=== PATIENT | male | born 1975 | race American Indian/Alaskan Native ===

== ENCOUNTER 2017-06-10 15:16 | Emergency (ER) | payer MEDICAID, OTHER ==
[2017-06-10 15:52] VITALS: BP 137/92
[2017-06-10] MEDS ORDERED: Lidocaine 2% Viscous Solution 15 ML Cup PO ONE (16:04)
--- NOTE | 2017-06-10 16:13 | EDM.PDOC ---
ED HPI GENERAL MEDICAL PROBLEM - General Chief Complaint: General Stated Complaint: TOOTH PAIN, [id number] Time Seen by Provider: 06/10/17 16:09 Source of Information: Reports: Patient History Limitations: Reports: No Limitations - History of Present Illness INITIAL COMMENTS - FREE TEXT/NARRATIVE: This 41 yo male patient reports to the ED with a 1 week history of increased pain in his right lower molar. The patient reports he was eating hard candy and noticed that his tooth had chipped off. The patient reports he attempted to get into the [facility], but was not able to get an appointment The patient reports he has had a root canal in that tooth previously. 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 Left Tooth/Teeth Pain Score (Numeric/FACES): 10 - Related Data Allergies Allergy/AdvReac Type Severity Reaction Status Date / Time No Known Allergies Allergy Verified 06/10/17 15:52 Home Meds: Home Meds Aspirin [Ecotrin] 81 mg PO DAILY 10/24/15 [History] Ibuprofen [Motrin] 800 mg PO Q8HR 10/24/15 [History] Lisinopril 20 mg PO DAILY 10/24/15 [History] Simvastatin [Zocor] 20 mg PO BEDTIME 10/24/15 [History] metFORMIN HCl [Metformin HCl] 500 mg PO BID 10/24/15 [History] Past Medical History Cardiovascular History: Reports: High Cholesterol, Hypertension Musculoskeletal History: Reports: Other (See Below) Other Musculoskeletal History: hx lt thumb fx Endocrine/Metabolic History: Reports: Diabetes, Type II - Past Surgical History GI Surgical History: Reports: Hernia Repair/Other Social & Family History - Family History Family Medical History: Noncontributory - Tobacco Use Smoking Status *Q: Current Every Day Smoker Years of Tobacco use: 15 Packs/Tins Daily: 1 - Caffeine Use Caffeine Use: Reports: None - Recreational Drug Use Recreational Drug Use: No ED ROS GENERAL - Review of Systems Review Of Systems: ROS reveals no pertinent complaints other than HPI. ED EXAM, GENERAL - Physical Exam Exam: See Below Exam Limited By: No Limitations General Appearance: Alert, WD/WN, Moderate Distress Eye Exam: Bilateral Eye: Foreign Body, Normal Inspection, PERRL Ears: Normal External Exam, Normal Canal, Hearing Grossly Normal, Normal TMs Nose: Normal Inspection, Normal Mucosa, No Blood Throat/Mouth: Other (The patient has a broken left lower molar. There is inflammation around the area and the patient reports increased pain going into his jaw. ) Head: Atraumatic, Normocephalic Neck: Normal Inspection, Supple, Non-Tender, Full Range of Motion Respiratory/Chest: No Respiratory Distress, Lungs Clear, Normal Breath Sounds, No Accessory Muscle Use, Chest Non-Tender Cardiovascular: Normal Peripheral Pulses, Regular Rate, Rhythm, No Edema, No Gallop, No JVD, No Murmur, No Rub GI/Abdominal: Normal Bowel Sounds, Soft, Non-Tender, No Organomegaly, No Distention, No Abnormal Bruit, No Mass (Male) Exam: Deferred Rectal (Males) Exam: Deferred Extremities: Normal Inspection, Normal Range of Motion, Non-Tender, Normal Capillary Refill, No Pedal Edema Neurological: Alert, Oriented, CN II-XII Intact, Normal Cognition, Normal Gait, Normal Reflexes, No Motor/Sensory Deficits Psychiatric: Normal Affect, Normal Mood Skin Exam: Warm, Dry, Intact, Normal Color, No Rash Lymphatic: No Adenopathy Course - Vital Signs Last Recorded V/S: Last Vital Signs Temp 36.9 C 06/10/17 15:49 Pulse 102 H 06/10/17 15:49 Resp 18 06/10/17 15:49 BP 137/92 H 06/10/17 15:49 Pulse Ox 100 06/10/17 15:49 - Orders/Labs/Meds Meds: Medications Discontinued Medications Generic Name Dose Route Start Last Admin Trade Name Freq PRN Reason Stop Dose Admin Lidocaine HCl 15 ml 06/10/17 16:04 06/10/17 16:13 Xylocaine 2% Viscous PO 06/10/17 16:05 15 ml ONETIME ONE Administration Departure - Departure Time of Disposition: 16:09 Disposition: Home, Self-Care 01 Condition: Fair Clinical Impression: Dental caries extending into dentin Dental trauma Qualifiers: Encounter type: initial encounter Qualified Code(s): S09.93XA - Unspecified injury of face, initial encounter - Discharge Information Instructions: Dental Caries, [id number] Forms: ED Department Discharge Care Plan Goals: The patient was advised of the examination results during the visit. The patient was given some Viscous Lidocaine 2% today while in the ED. The patient was discharged with a script for Clindamycin (300 mg) #30 to take 1 by mouth 3 times per day for 10 day sand Viscous Lidocaine 2% #100 mL to apply 10 mL to a cottonball over the area every 6 hours as needed. The patient may continue to take Tylenol and ibuprofen as directed. The patient should follow-up with a dentist as soon as possible for continued evaluation and further management.
== END 2017-06-10 16:15 | disposition home or self-care (01) ==
LOC: DL.ED 15:16
DX: S02.5XXA Fracture of tooth (traumatic), initial encounter for closed fracture (principal); K02.9 Dental caries, unspecified; E78.00 Pure hypercholesterolemia, unspecified; I10 Essential (primary) hypertension; E11.9 Type 2 diabetes mellitus without complications; F17.210 Nicotine dependence, cigarettes, uncomplicated; Z79.82 Long term (current) use of aspirin; Z79.899 Other long term (current) drug therapy; X58.XXXA Exposure to other specified factors, initial encounter
CPT/HCPCS: 99282; A9270

== ENCOUNTER 2019-02-15 12:52 | Emergency (ER) | payer MEDICAID ==
[2019-02-15 12:59] VITALS: BP 155/101
[2019-02-15] MEDS ORDERED: Sodium Chloride 0.9% 10 ML Syringe FLUSH PRN (13:08)
[2019-02-15] MEDS ORDERED: HYDROmorphone 1 MG/ML Syringe IVPUSH ONE (13:09)
[2019-02-15] MEDS ORDERED: Sodium Chloride 0.9% 1,000 ML IV ONE (13:09)
[2019-02-15] MEDS ORDERED: Ondansetron 4 MG/2 ML SDV IV ONE (13:09)
--- NOTE | 2019-02-15 13:20 | EDM.PDOC ---
ED HPI GENERAL MEDICAL PROBLEM - General Chief Complaint: Abdominal Pain Stated Complaint: POSSIBLE APPY Time Seen by Provider: 02/15/19 13:00 Source of Information: Reports: Patient History Limitations: Reports: No Limitations - History of Present Illness INITIAL COMMENTS - FREE TEXT/NARRATIVE: Patient presents to ER today after previously being seen at [facility] where they were unable to run labs. Patient CC is right sided abdominal pain that he describes at "shooting" with radiation to right groin region. Patient states that he has been experiencing similar abdominal pain in the past 2 weeks that started out with right flank pain, however he did fall on his right side today causing the pain to worsen. Patient reports that he fell against the stair rail while holding his son. Patient denies any nausea, vomiting, blood in his urine or feces, shortness of breath, or chest pain. Patient reports PMH of kidney stones as well as "abdominal hernia". Patient has not tried anything to relieve the pain since the falling episode today. 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 (see below) (None) Right Lower Abdomen Pain Score (Numeric/FACES): 8 - Related Data Allergies Allergy/AdvReac Type Severity Reaction Status Date / Time No Known Allergies Allergy Verified 06/10/17 15:52 Home Meds: Home Meds Aspirin [Ecotrin] 81 mg PO DAILY 10/24/15 [History] Ibuprofen [Motrin] 800 mg PO Q8HR 10/24/15 [History] Lisinopril 20 mg PO DAILY 10/24/15 [History] Simvastatin [Zocor] 20 mg PO BEDTIME 10/24/15 [History] metFORMIN HCl [Metformin HCl] 500 mg PO BID 10/24/15 [History] Past Medical History Cardiovascular History: Reports: High Cholesterol, Hypertension Musculoskeletal History: Reports: Other (See Below) Other Musculoskeletal History: hx lt thumb fx Endocrine/Metabolic History: Reports: Diabetes, Type II - Past Surgical History GI Surgical History: Reports: Hernia Repair/Other Social & Family History - Family History Family Medical History: Noncontributory - Tobacco Use Smoking Status *Q: Never Smoker - Caffeine Use Caffeine Use: Reports: None - Recreational Drug Use Recreational Drug Use: No ED ROS GENERAL - Review of Systems Review Of Systems: ROS reveals no pertinent complaints other than HPI. ED EXAM, GI/ABD - Physical Exam Exam: See Below Exam Limited By: No Limitations General Appearance: Alert, No Apparent Distress Respiratory/Chest: No Respiratory Distress, Lungs Clear, Normal Breath Sounds, No Accessory Muscle Use, Chest Non-Tender Cardiovascular: Normal Peripheral Pulses, Regular Rate, Rhythm, No Edema, Other GI/Abdominal Exam: Normal Bowel Sounds, Soft, Tender (RLQ tenderness with palpation ), Other (No evidence of trauma to RUQ/RLQ ) Extremities: Normal Inspection, Normal Range of Motion Neurological: Alert, Oriented Psychiatric: Normal Affect, Normal Mood Skin Exam: Warm, Dry, Intact Course - Vital Signs Last Recorded V/S: Last Vital Signs Temp 36.9 C 02/15/19 12:58 Pulse 94 02/15/19 12:58 Resp 18 02/15/19 12:58 BP 155/101 H 02/15/19 12:58 Pulse Ox 100 02/15/19 12:58 - Orders/Labs/Meds Orders: Active Orders 24 hr Category Date Time Status Peripheral IV Care [RC] . DIRECTED Care 02/15/19 13:09 Active Abdomen Pelvis wo Cont [CT] Stat Exams 02/15/19 13:25 Taken Sodium Chloride 0.9% [Saline Flush] Med 02/15/19 13:08 Active 10 ml FLUSH ASDIRECTED PRN Peripheral IV Insertion Adult [OM.PC] Stat Oth 02/15/19 13:08 Ordered Medication Orders Sodium Chloride (Saline Flush) 10 ml FLUSH ASDIRECTED PRN PRN Reason: Keep Vein Open Last Admin: 02/15/19 13:27 Dose: 10 ml Labs: Laboratory Tests 02/15/19 02/15/19 02/15/19 Range/Units 13:07 13:22 13:22 WBC 5.6 (5.0-10.0) 10^3/uL RBC 4.56 L (4.6-6.2) 10^6/uL Hgb 13.2 L (14.0-18.0) g/dL Hct 38.4 L (40.0-54.0) % MCV 84.2 (80-100) fL MCH 28.9 (27.0-34.0) pg MCHC 34.4 (33.0-35.0) g/dL Plt Count 288 (150-450) 10^3/uL Neut % (Auto) 54.0 (42.2-75.2) % Lymph % (Auto) 33.8 (20.5-50.1) % [place] % (Auto) 9.2 H (2-8) % Eos % (Auto) 2.3 (1.0-3.0) % Baso % (Auto) 0.7 (0.0-1.0) % Sodium 133 L (135-145) mmol/L Potassium 3.0 L (3.6-5.0) mmol/L Chloride 100 L (101-111) mmol/L Carbon Dioxide 23.0 (21.0-31.0) mmol/L Anion Gap 13.0 BUN 7 (7-18) mg/dL Creatinine 0.5 L (0.6-1.3) mg/dL Est Cr Clr Drug Dosing 188.95 mL/min Estimated GFR (MDRD) > 60 BUN/Creatinine Ratio 14.00 Glucose 145 H (74-105) mg/dL Lactic Acid (0.5-2.2) mmol/L Calcium 8.6 (8.4-10.2) mg/dl Total Bilirubin 0.6 (0.2-1.0) mg/dL AST 15 (10-42) IU/L ALT 11 (10-60) IU/L Alkaline Phosphatase 47 (42-121) IU/L Total Protein 6.8 (6.7-8.2) g/dl Albumin 4.0 (3.2-5.5) g/dl Globulin 2.8 Albumin/Globulin Ratio 1.43 Amylase 24 L (28-100) U/L Lipase 33 (22-51) U/L Urine Color Yellow (YELLOW) Urine Appearance Clear (CLEAR) Urine pH 7.0 (5.0-9.0) Ur Specific [place] 1.010 (1.005-1.030) Urine Protein Negative (NEGATIVE) Urine Glucose (UA) Negative (NEGATIVE) Urine Ketones Negative (NEGATIVE) Urine Occult Blood Negative (NEGATIVE) Urine Nitrite Negative (NEGATIVE) Urine Bilirubin Negative (NEGATIVE) Urine Urobilinogen 0.2 (0.2-1.0) mg/dL Ur Leukocyte Esterase Negative (NEGATIVE) 02/15/19 Range/Units 13:22 WBC (5.0-10.0) 10^3/uL RBC (4.6-6.2) 10^6/uL Hgb (14.0-18.0) g/dL Hct (40.0-54.0) % MCV (80-100) fL MCH (27.0-34.0) pg MCHC (33.0-35.0) g/dL Plt Count (150-450) 10^3/uL Neut % (Auto) (42.2-75.2) % Lymph % (Auto) (20.5-50.1) % [place] % (Auto) (2-8) % Eos % (Auto) (1.0-3.0) % Baso % (Auto) (0.0-1.0) % Sodium (135-145) mmol/L Potassium (3.6-5.0) mmol/L Chloride (101-111) mmol/L Carbon Dioxide (21.0-31.0) mmol/L Anion Gap BUN (7-18) mg/dL Creatinine (0.6-1.3) mg/dL Est Cr Clr Drug Dosing mL/min Estimated GFR (MDRD) BUN/Creatinine Ratio Glucose (74-105) mg/dL Lactic Acid 0.7 (0.5-2.2) mmol/L Calcium (8.4-10.2) mg/dl Total Bilirubin (0.2-1.0) mg/dL AST (10-42) IU/L ALT (10-60) IU/L Alkaline Phosphatase (42-121) IU/L Total Protein (6.7-8.2) g/dl Albumin (3.2-5.5) g/dl Globulin Albumin/Globulin Ratio Amylase (28-100) U/L Lipase (22-51) U/L Urine Color (YELLOW) Urine Appearance (CLEAR) Urine pH (5.0-9.0) Ur Specific [place] (1.005-1.030) Urine Protein (NEGATIVE) Urine Glucose (UA) (NEGATIVE) Urine Ketones (NEGATIVE) Urine Occult Blood (NEGATIVE) Urine Nitrite (NEGATIVE) Urine Bilirubin (NEGATIVE) Urine Urobilinogen (0.2-1.0) mg/dL Ur Leukocyte Esterase (NEGATIVE) Meds: Medications Generic Name Dose Route Start Last Admin Trade Name Freq PRN Reason Stop Dose Admin Sodium Chloride 10 ml 02/15/19 13:08 02/15/19 13:27 Saline Flush FLUSH 10 ml ASDIRECTED PRN Administration Keep Vein Open Discontinued Medications Generic Name Dose Route Start Last Admin Trade Name [place] PRN Reason Stop Dose Admin Hydromorphone HCl 1 mg 02/15/19 13:09 02/15/19 13:27 Dilaudid IVPUSH 02/15/19 13:10 1 mg ONETIME ONE Administration Sodium Chloride 1,000 mls @ 999 mls/hr 02/15/19 13:09 02/15/19 13:27 Normal Saline IV 02/15/19 14:09 999 mls/hr .BOLUS ONE Administration Ondansetron HCl 4 mg 02/15/19 13:09 02/15/19 13:27 Zofran IV 02/15/19 13:10 4 mg ONETIME ONE Administration - Radiology Interpretation Free Text/Narrative:: Multiple non obstructing kidney stones in bilateral kidneys. Suspected tiny calculus in right distal ureter or just into the bladder. No obstructing calculi. Appendix appears normals. No other acute findings, see rad report. Departure - Departure Time of Disposition: 14:41 Disposition: Home, Self-Care 01 Condition: Good Clinical Impression: Multiple kidney stones - Discharge Information *PRESCRIPTION DRUG MONITORING PROGRAM REVIEWED*: No *COPY OF PRESCRIPTION DRUG MONITORING REPORT IN PATIENT PREM: No Instructions: Kidney Stones, [id number] Forms: ED Department Discharge Additional Instructions: Rx: Zofran 4mg Rx: [place] 5/325 mg *This medication may cause drowsiness, do not drive while under the influence of this medication Push fluids, stay hydrated. Follow up in clinic in next 3-5 days if no improvement. - My Orders Last 24 Hours: My Active Orders 02/15/19 13:08 Sodium Chloride 0.9% [Saline Flush] 10 ml FLUSH ASDIRECTED PRN Peripheral IV Insertion Adult [OM.PC] Stat 02/15/19 13:09 Peripheral IV Care [RC] . DIRECTED 02/15/19 13:25 Abdomen Pelvis wo Cont [CT] Stat - Assessment/Plan Last 24 Hours: My Active Orders 02/15/19 13:08 Sodium Chloride 0.9% [Saline Flush] 10 ml FLUSH ASDIRECTED PRN Peripheral IV Insertion Adult [OM.PC] Stat 02/15/19 13:09 Peripheral IV Care [RC] . DIRECTED 02/15/19 13:25 Abdomen Pelvis wo Cont [CT] Stat
[2019-02-15 13:50] LABS: CHLORIDE,CL 100 mmol/L (101-111); SODIUM,NA 133 mmol/L (135-145)
--- NOTE | 2019-02-15 15:27 | CT ---
Clinical history: 43-year-old 185 pound male with right flank and RLQ pain that goes into the ipsilateral inguinal region (history of "kidney stones"). Normal UA. Scan technique: Volume acquisition of data emergency unenhanced CT scan of the abdomen and pelvis obtained with patient lying supine on the Siemens multi slice scanner [place], [place]. All data archived in the PACS system for storage, reformatting axial/sagittal/coronal planes and study. Interpretation: Abnormal. 1. Tiny punctate radiodensities (calcifications) identified upper/mid/lower poles both kidneys but without current signs of pyelocaliectasis/ureterectasis or obstructive uropathy. Numerous phlebolith-like radiopacities present in the pelvis bilaterally. 2. Distended gallbladder RUQ, unenhanced liver, stomach, spleen, pancreas and adrenal glands unremarkable. 3. Atheromatous calcification scattered along the course of normal caliber aortoiliac vessels. No aneurysm or dissection. 4. Appendix not clearly identified but centrally nonedematous and no calcified appendicoliths RLQ. No mesenteric or retroperitoneal lymphadenopathy. No abdominal or pelvic mass lesion, signs of mechanical bowel obstruction, ascites, free air. 5. Chronic severe lower lumbar disc disease ('s L5-S1). 6. Normal cardiac silhouette. Lung bases clear. CONCLUSION: Bilateral nephrolithiasis without current signs of obstructive uropathy. No acute intraperitoneal abnormality.
== END 2019-02-15 14:55 | disposition home or self-care (01) ==
LOC: DL.ED 12:52
DX: N20.0 Calculus of kidney (principal); E11.9 Type 2 diabetes mellitus without complications; I10 Essential (primary) hypertension; E78.00 Pure hypercholesterolemia, unspecified; Z79.899 Other long term (current) drug therapy; Z79.82 Long term (current) use of aspirin; Z79.84 Long term (current) use of oral hypoglycemic drugs
CPT/HCPCS: 36415; 74176; 80053; 81003; 82150; 83605; 83690; 85025; 96361; 96374; 96375; 99284; J1170; J2405; J7030

== ENCOUNTER 2019-12-24 13:28 | Emergency (ER) | payer MEDICAID, OTHER ==
--- NOTE | 2019-12-24 13:34 | EDM.PDOC ---
ED HPI GENERAL MEDICAL PROBLEM - General Chief Complaint: General Stated Complaint: BODY ACHES, VOMITTING Time Seen by Provider: 12/24/19 13:33 Source of Information: Reports: Patient, Old Records, RN, RN Notes Reviewed History Limitations: Reports: No Limitations - History of Present Illness INITIAL COMMENTS - FREE TEXT/NARRATIVE: Pt presents to ER from home by POV with c/o two hours duration of generalized body aches, myalgias, abdominal pain, nausea, and vomiting. Denies fever, cough , shortness of breath, chest pain, runny nose, eye problems, diarrhea, constipation, or urinary symptoms. Pt admits to feeling very cold. Denies recent travel, or any exposure to confirmed or suspected Covid-19 cases. Onset: Gradual Onset Date: 12/24/19 Onset Time: 11:30 Duration: Constant Location: Reports: Abdomen, Generalized Severity: Moderate Improves with: Reports: None Worsens with: Reports: None Associated Symptoms: Reports: No Other Symptoms Generalized Pain Score (Numeric/FACES): 5 - Related Data Allergies Allergy/AdvReac Type Severity Reaction Status Date / Time No Known Allergies Allergy Verified 12/24/19 13:37 Home Meds: Home Meds Aspirin [Ecotrin] 81 mg PO DAILY 10/24/15 [History] Ibuprofen [Motrin] 800 mg PO Q8HR 10/24/15 [History] Lisinopril 20 mg PO DAILY 10/24/15 [History] Simvastatin [Zocor] 20 mg PO BEDTIME 10/24/15 [History] metFORMIN HCl [Metformin HCl] 500 mg PO BID 10/24/15 [History] Past Medical History Cardiovascular History: Reports: High Cholesterol, Hypertension Genitourinary History: Reports: Renal Calculus Musculoskeletal History: Reports: Other (See Below) Other Musculoskeletal History: hx lt thumb fx Endocrine/Metabolic History: Reports: Diabetes, Type II - Past Surgical History GI Surgical History: Reports: Hernia Repair/Other Social & Family History - Family History Family Medical History: Noncontributory - Caffeine Use Caffeine Use: Reports: None - Living Situation & Occupation Living situation: Reports: with Family ED ROS GENERAL - Review of Systems Review Of Systems: Comprehensive ROS is negative, except as noted in HPI. ED EXAM, GENERAL - Physical Exam Exam: See Below Exam Limited By: No Limitations General Appearance: Alert, WD/WN, No Apparent Distress Eye Exam: Bilateral Eye: Normal Inspection Nose: Normal Inspection, Normal Mucosa, No Blood Throat/Mouth: Normal Voice, No Airway Compromise, Other (Chronic dental decay) Head: Atraumatic, Normocephalic Neck: Normal Inspection, Supple, Non-Tender, Full Range of Motion. No: Lymphadenopathy (L), Lymphadenopathy (R) Respiratory/Chest: No Respiratory Distress, Lungs Clear, Normal Breath Sounds, No Accessory Muscle Use, Chest Non-Tender Cardiovascular: Normal Peripheral Pulses, Regular Rate, Rhythm, No Edema, No Gallop, No JVD, No Murmur, No Rub GI/Abdominal: Normal Bowel Sounds, Soft, No Distention, No Abnormal Bruit, Tender (generalized abdominal tenderness, no peritoneal signs). No: Guarding, Rigid, Rebound (Male) Exam: Deferred Rectal (Males) Exam: Deferred Back Exam: Normal Inspection, Full Range of Motion Extremities: Normal Inspection, Normal Range of Motion Neurological: Alert, Oriented, Normal Cognition, Normal Gait, No Motor/Sensory Deficits Psychiatric: Normal Affect, Normal Mood Skin Exam: Warm, Dry, Intact, Normal Color, No Rash, Other (Extensive tatoos to scalp, face, trunk, and extremities) Course - Vital Signs Last Recorded V/S: Last Vital Signs Temp 97.2 F 12/24/19 13:36 Pulse 69 12/24/19 13:36 Resp 18 12/24/19 13:36 BP 165/93 H 12/24/19 13:36 Pulse Ox 100 12/24/19 13:36 - Orders/Labs/Meds Orders: Active Orders 24 hr Category Date Time Status CORONAVIRUS COVID-19 PCR PHL Routine Lab 12/24/19 14:48 Ordered CULTURE STREP A CONFIRMATION [RM] Stat Lab 12/24/19 13:44 Results STREP SCRN A RAPID W CULT CONF [RM] Stat Lab 12/24/19 13:44 Results Isolation [COMM] Routine Oth 12/24/19 13:44 Active Labs: Laboratory Tests 12/24/19 12/24/19 12/24/19 Range/Units 13:50 13:50 13:50 WBC 11.0 H (5.0-10.0) 10^3/uL RBC 4.90 (4.6-6.2) 10^6/uL Hgb 13.9 L (14.0-18.0) g/dL Hct 40.9 (40.0-54.0) % MCV 83.5 (80-100) fL MCH 28.4 (27.0-34.0) pg MCHC 34.0 (33.0-35.0) g/dL Plt Count 324 (150-450) 10^3/uL Neut % (Auto) 69.9 (42.2-75.2) % Lymph % (Auto) 21.9 (20.5-50.1) % [place] % (Auto) 4.2 (2-8) % Eos % (Auto) 3.5 H (1.0-3.0) % Baso % (Auto) 0.5 (0.0-1.0) % Sodium 137 (136-145) mmol/L Potassium 3.7 (3.5-5.1) mmol/L Chloride 98 (98-107) mmol/L Carbon Dioxide 24 (21-32) mmol/L Anion Gap 18.7 H (7-13) mEq/L BUN 9 (7-18) mg/dL Creatinine 0.87 (0.70-1.30) mg/dL Est Cr Clr Drug Dosing TNP Estimated GFR (MDRD) > 60 BUN/Creatinine Ratio 10.3 (No establ ref range) Glucose 154 H (74-99) mg/dL Lactic Acid 3.7 H* (0.4-2.0) mmol/L Calcium 8.7 (8.5-10.1) mg/dL Total Bilirubin 0.5 (0.2-1.0) mg/dL AST 17 (15-37) U/L ALT 22 (16-63) U/L Alkaline Phosphatase 99 (46-116) U/L C-Reactive Protein 0.8 (0.0-0.9) mg/dL Total Protein 7.4 (6.4-8.2) g/dL Albumin 3.7 (3.4-5.0) g/dL Globulin 3.7 Albumin/Globulin Ratio 1.0 Amylase 12 L (25-115) U/L Lipase 44 L (73-393) U/L Urine Color (YELLOW) Urine Appearance (CLEAR) Urine pH (5.0-9.0) Ur Specific [place] (1.005-1.030) Urine Protein (NEGATIVE) Urine Glucose (UA) (NEGATIVE) Urine Ketones (NEGATIVE) Urine Occult Blood (NEGATIVE) Urine Nitrite (NEGATIVE) Urine Bilirubin (NEGATIVE) Urine Urobilinogen (0.2-1.0) mg/dL Ur Leukocyte Esterase (NEGATIVE) Ketones Negative 12/24/19 Range/Units 14:45 WBC (5.0-10.0) 10^3/uL RBC (4.6-6.2) 10^6/uL Hgb (14.0-18.0) g/dL Hct (40.0-54.0) % MCV (80-100) fL MCH (27.0-34.0) pg MCHC (33.0-35.0) g/dL Plt Count (150-450) 10^3/uL Neut % (Auto) (42.2-75.2) % Lymph % (Auto) (20.5-50.1) % [place] % (Auto) (2-8) % Eos % (Auto) (1.0-3.0) % Baso % (Auto) (0.0-1.0) % Sodium (136-145) mmol/L Potassium (3.5-5.1) mmol/L Chloride (98-107) mmol/L Carbon Dioxide (21-32) mmol/L Anion Gap (7-13) mEq/L BUN (7-18) mg/dL Creatinine (0.70-1.30) mg/dL Est Cr Clr Drug Dosing Estimated GFR (MDRD) BUN/Creatinine Ratio (No establ ref range) Glucose (74-99) mg/dL Lactic Acid (0.4-2.0) mmol/L Calcium (8.5-10.1) mg/dL Total Bilirubin (0.2-1.0) mg/dL AST (15-37) U/L ALT (16-63) U/L Alkaline Phosphatase (46-116) U/L C-Reactive Protein (0.0-0.9) mg/dL Total Protein (6.4-8.2) g/dL Albumin (3.4-5.0) g/dL Globulin Albumin/Globulin Ratio Amylase (25-115) U/L Lipase (73-393) U/L Urine Color Yellow (YELLOW) Urine Appearance Clear (CLEAR) Urine pH 8.5 (5.0-9.0) Ur Specific [place] 1.020 (1.005-1.030) Urine Protein Negative (NEGATIVE) Urine Glucose (UA) Negative (NEGATIVE) Urine Ketones Trace H (NEGATIVE) Urine Occult Blood Negative (NEGATIVE) Urine Nitrite Negative (NEGATIVE) Urine Bilirubin Negative (NEGATIVE) Urine Urobilinogen 0.2 (0.2-1.0) mg/dL Ur Leukocyte Esterase Negative (NEGATIVE) Ketones Rapid Strep: negative Influenza A/B: negative Meds: Medications Discontinued Medications Generic Name Dose Route Start Last Admin Trade Name [place] PRN Reason Stop Dose Admin Ondansetron HCl 4 mg 12/24/19 13:38 12/24/19 13:47 Zofran Odt PO 12/24/19 13:39 4 mg ONETIME ONE Administration Promethazine HCl 25 mg 12/24/19 14:47 Phenergan IM 12/24/19 14:48 ONETIME ONE - Re-Assessments/Exams Free Text/Narrative Re-Assessment/Exam: 12/24/19 14:48 Pt with myalgias and chills with N/V consistent with viral syndrome. Lactic acid 3.7 without signs of sepsis. Given the GI symptoms and gen. viral infection symptoms with negative strep and flu, pt will be Covid-19 tested. Plan to d/c pt home to self quarantine until his Covid results are available and negative, or if positive for an additional 14 days. Departure - Departure Time of Disposition: 15:20 Disposition: Home, Self-Care 01 Condition: Good Clinical Impression: Acute viral syndrome Nausea and vomiting Qualifiers: Vomiting type: unspecified Vomiting Intractability: non-intractable Qualified Code(s): R11.2 - Nausea with vomiting, unspecified - Discharge Information *PRESCRIPTION DRUG MONITORING PROGRAM REVIEWED*: Not Applicable *COPY OF PRESCRIPTION DRUG MONITORING REPORT IN PATIENT PREM: Not Applicable Instructions: Viral Illness, Adult, Nausea and Vomiting, Adult, [id number] Forms: ED Department Discharge Additional Instructions: Rx: Promethazine 25mg *Do not drive while taking this medication. Clear liquid diet until nausea and vomiting improve, then advance to soft bland diet as tolerated. Stay home and self quarantine until you are notified of your Covid-19 test results. If the test is positive continue to self quarantine for 14 days from the first day of your illness. Follow up in clinic if not improving in 3 to 5 days. Return to ER if you develop any breathing difficulty. Sepsis Event Note - Focused Exam Vital Signs: Vital Signs Temp Pulse Resp BP Pulse Ox 12/24/19 13:36 97.2 F 69 18 165/93 H 100 Date Exam was Performed: 12/24/19 Time Exam was Performed: 14:57 - My Orders Last 24 Hours: My Active Orders 12/24/19 13:44 CULTURE STREP A CONFIRMATION [RM] Stat STREP SCRN A RAPID W CULT CONF [RM] Stat Isolation [COMM] Routine 12/24/19 14:48 CORONAVIRUS COVID-19 PCR PHL Routine - Assessment/Plan Last 24 Hours: My Active Orders 12/24/19 13:44 CULTURE STREP A CONFIRMATION [RM] Stat STREP SCRN A RAPID W CULT CONF [RM] Stat Isolation [COMM] Routine 12/24/19 14:48 CORONAVIRUS COVID-19 PCR PHL Routine
[2019-12-24 13:36] VITALS: BP 165/93; PULSE 69
[2019-12-24] MEDS ORDERED: Ondansetron 4 MG Tab.DIS PO ONE (13:38)
[2019-12-24 14:26] LABS: ANION GAP 18.7 mEq/L (7-13); CHLORIDE,CL 98 mmol/L (98-107); SODIUM,NA 137 mmol/L (136-145)
[2019-12-24] MEDS ORDERED: Promethazine 25 MG/ML SDV IM ONE (14:47)
== END 2019-12-24 15:21 | disposition home or self-care (01) ==
LOC: DL.ED 13:28
DX: B34.9 Viral infection, unspecified (principal); E11.9 Type 2 diabetes mellitus without complications; E78.00 Pure hypercholesterolemia, unspecified; Z20.828 Contact with and (suspected) exposure to other viral communicable diseases; I10 Essential (primary) hypertension; Z79.82 Long term (current) use of aspirin; Z79.84 Long term (current) use of oral hypoglycemic drugs; Z79.899 Other long term (current) drug therapy
CPT/HCPCS: 36415; 80053; 81003; 82009; 82150; 83605; 83690; 85025; 86140; 87081; 87430; 87635; 87804; 96372; 99284; A9270; J2550; U0002

== ENCOUNTER 2020-01-06 13:29 | Emergency (ER) | payer MEDICAID ==
[2020-01-06 13:48] VITALS: BP 169/86; PULSE 65
[2020-01-06] MEDS ORDERED: Sodium Chloride 0.9% 10 ML Syringe FLUSH PRN (13:53)
[2020-01-06] MEDS ORDERED: Sodium Chloride 0.9% 1,000 ML IV ONE (14:00)
[2020-01-06] MEDS ORDERED: Ondansetron 4 MG/2 ML SDV IV ONE (14:00)
[2020-01-06 14:35] LABS: ANION GAP 15.2 mEq/L (7-13); CHLORIDE,CL 101 mmol/L (98-107); SODIUM,NA 139 mmol/L (136-145)
--- NOTE | 2020-01-06 14:49 | EDM.PDOC ---
ED HPI GENERAL MEDICAL PROBLEM - General Chief Complaint: Abdominal Pain Stated Complaint: CAN'T KEEP FOOD DOWN/SWEATING/CHILLS Time Seen by Provider: 01/06/20 14:00 Source of Information: Reports: Patient, Family, RN, RN Notes Reviewed History Limitations: Reports: No Limitations - History of Present Illness INITIAL COMMENTS - FREE TEXT/NARRATIVE: Patient presents to ER with complaint of nausea and vomiting for the past 2 hours. Patient states he has vomited 4-5 times, and states he is unable to keep anything down. Report given to the nurse by the patient he states he has had nausea and vomiting for 4 days. Patient states he has chills. Denies fever , denies diarrhea, denies chest pains or shortness of breath. Patient states last bowel movement was 1 hour prior to arrival and was normal for him. Onset: Today, Sudden Abdomen Pain Score (Numeric/FACES): 8 - Related Data Allergies Allergy/AdvReac Type Severity Reaction Status Date / Time No Known Allergies Allergy Verified 01/06/20 13:48 Home Meds: Home Meds Aspirin [Ecotrin] 81 mg PO DAILY 10/24/15 [History] Ibuprofen [Motrin] 800 mg PO Q8HR 10/24/15 [History] Lisinopril 20 mg PO DAILY 10/24/15 [History] Simvastatin [Zocor] 20 mg PO BEDTIME 10/24/15 [History] metFORMIN HCl [Metformin HCl] 500 mg PO BID 10/24/15 [History] Past Medical History HEENT History: Reports: Impaired Vision Cardiovascular History: Reports: High Cholesterol, Hypertension Respiratory History: Reports: None Gastrointestinal History: Reports: None Genitourinary History: Reports: Renal Calculus Musculoskeletal History: Reports: Other (See Below) Other Musculoskeletal History: hx lt thumb fx Neurological History: Reports: None Psychiatric History: Reports: None Endocrine/Metabolic History: Reports: Diabetes, Type II Hematologic History: Reports: None Immunologic History: Reports: None Oncologic (Cancer) History: Reports: None Dermatologic History: Reports: None - Infectious Disease History Infectious Disease History: Reports: None - Past Surgical History Head Surgeries/Procedures: Reports: None GI Surgical History: Reports: Hernia Repair/Other Social & Family History - Family History Family Medical History: Noncontributory - Tobacco Use Smoking Status *Q: Current Every Day Smoker Years of Tobacco use: 10 Packs/Tins Daily: 0.5 - Caffeine Use Caffeine Use: Reports: None - Recreational Drug Use Recreational Drug Use: No - Living Situation & Occupation Living situation: Reports: with Family ED ROS GENERAL - Review of Systems Review Of Systems: Comprehensive ROS is negative, except as noted in HPI. ED EXAM, GI/ABD - Physical Exam Exam: See Below Exam Limited By: No Limitations General Appearance: Alert, WD/WN, No Apparent Distress Eyes: Bilateral: Normal Appearance, EOMI Ears: Normal External Exam, Hearing Grossly Normal Nose: Normal Inspection Throat/Mouth: Normal Inspection, Normal Voice, No Airway Compromise Head: Atraumatic, Normocephalic Neck: Normal Inspection, Supple, Non-Tender, Full Range of Motion Respiratory/Chest: No Respiratory Distress, Lungs Clear, Normal Breath Sounds, No Accessory Muscle Use, Chest Non-Tender Cardiovascular: Normal Peripheral Pulses, Regular Rate, Rhythm, No Edema, No Gallop, No JVD, No Murmur, No Rub GI/Abdominal Exam: Normal Bowel Sounds, Soft, Non-Tender, No Organomegaly, No Distention, No Abnormal Bruit, No Mass, Pelvis Stable (Male) Exam: Deferred Rectal (Males) Exam: Deferred Back Exam: Normal Inspection, Full Range of Motion, NT Extremities: Normal Inspection, Normal Range of Motion, Non-Tender, Normal Capillary Refill, No Pedal Edema Neurological: Alert, Oriented, CN II-XII Intact, Normal Cognition, Normal Gait, Normal Reflexes, No Motor/Sensory Deficits Psychiatric: Normal Affect, Normal Mood Skin Exam: Warm, Dry, Intact, Normal Color, No Rash Lymphatic: No Adenopathy Course - Vital Signs Last Recorded V/S: Last Vital Signs Temp 96.8 F L 01/06/20 13:41 Pulse 65 01/06/20 13:41 Resp 16 01/06/20 13:41 BP 169/86 H 01/06/20 13:41 Pulse Ox 100 01/06/20 13:41 - Orders/Labs/Meds Orders: Active Orders 24 hr Category Date Time Status Peripheral IV Care [RC] . DIRECTED Care 01/06/20 13:54 Active Sodium Chloride 0.9% [Saline Flush] Med 01/06/20 13:53 Active 10 ml FLUSH ASDIRECTED PRN Peripheral IV Insertion Adult [OM.PC] Stat Oth 01/06/20 13:53 Ordered Medication Orders Sodium Chloride (Saline Flush) 10 ml FLUSH ASDIRECTED PRN PRN Reason: Keep Vein Open Last Admin: 01/06/20 14:07 Dose: 10 ml Labs: Laboratory Tests 01/06/20 01/06/20 01/06/20 Range/Units 14:10 14:10 15:27 WBC 11.9 H (5.0-10.0) 10^3/uL RBC 4.81 (4.6-6.2) 10^6/uL Hgb 13.6 L (14.0-18.0) g/dL Hct 40.3 (40.0-54.0) % MCV 83.8 (80-100) fL MCH 28.3 (27.0-34.0) pg MCHC 33.7 (33.0-35.0) g/dL Plt Count 355 (150-450) 10^3/uL Neut % (Auto) 83.5 H (42.2-75.2) % Lymph % (Auto) 12.0 L (20.5-50.1) % [place] % (Auto) 3.0 (2-8) % Eos % (Auto) 1.2 (1.0-3.0) % Baso % (Auto) 0.3 (0.0-1.0) % Sodium 139 (136-145) mmol/L Potassium 3.2 L (3.5-5.1) mmol/L Chloride 101 (98-107) mmol/L Carbon Dioxide 26 (21-32) mmol/L Anion Gap 15.2 H (7-13) mEq/L BUN 12 (7-18) mg/dL Creatinine 0.92 (0.70-1.30) mg/dL Est Cr Clr Drug Dosing 112.46 mL/min Estimated GFR (MDRD) > 60 BUN/Creatinine Ratio 13.0 (No establ ref range) Glucose 152 H (74-99) mg/dL Calcium 8.8 (8.5-10.1) mg/dL Total Bilirubin 0.4 (0.2-1.0) mg/dL AST 13 L (15-37) U/L ALT 19 (16-63) U/L Alkaline Phosphatase 90 (46-116) U/L Total Protein 7.3 (6.4-8.2) g/dL Albumin 3.7 (3.4-5.0) g/dL Globulin 3.6 Albumin/Globulin Ratio 1.0 Urine Color Yellow (YELLOW) Urine Appearance Clear (CLEAR) Urine pH 8.5 (5.0-9.0) Ur Specific [place] 1.025 (1.005-1.030) Urine Protein Negative (NEGATIVE) Urine Glucose (UA) Negative (NEGATIVE) Urine Ketones Trace H (NEGATIVE) Urine Occult Blood Negative (NEGATIVE) Urine Nitrite Negative (NEGATIVE) Urine Bilirubin Negative (NEGATIVE) Urine Urobilinogen 0.2 (0.2-1.0) mg/dL Ur Leukocyte Esterase Negative (NEGATIVE) Urine Opiates Screen (NEGATIVE) Ur Oxycodone Screen (NEGATIVE) Urine Methadone Screen (NEGATIVE) Ur Barbiturates Screen (NEGATIVE) U Tricyclic Antidepress (NEGATIVE) Ur Phencyclidine Scrn (NEGATIVE) Ur Amphetamine Screen (NEGATIVE) U Methamphetamines Scrn (NEGATIVE) Urine MDMA Screen (NEGATIVE) U Benzodiazepines Scrn (NEGATIVE) Urine Cocaine Screen (NEGATIVE) U Marijuana (THC) Screen (NEGATIVE) 01/06/20 Range/Units 15:27 WBC (5.0-10.0) 10^3/uL RBC (4.6-6.2) 10^6/uL Hgb (14.0-18.0) g/dL Hct (40.0-54.0) % MCV (80-100) fL MCH (27.0-34.0) pg MCHC (33.0-35.0) g/dL Plt Count (150-450) 10^3/uL Neut % (Auto) (42.2-75.2) % Lymph % (Auto) (20.5-50.1) % [place] % (Auto) (2-8) % Eos % (Auto) (1.0-3.0) % Baso % (Auto) (0.0-1.0) % Sodium (136-145) mmol/L Potassium (3.5-5.1) mmol/L Chloride (98-107) mmol/L Carbon Dioxide (21-32) mmol/L Anion Gap (7-13) mEq/L BUN (7-18) mg/dL Creatinine (0.70-1.30) mg/dL Est Cr Clr Drug Dosing mL/min Estimated GFR (MDRD) BUN/Creatinine Ratio (No establ ref range) Glucose (74-99) mg/dL Calcium (8.5-10.1) mg/dL Total Bilirubin (0.2-1.0) mg/dL AST (15-37) U/L ALT (16-63) U/L Alkaline Phosphatase (46-116) U/L Total Protein (6.4-8.2) g/dL Albumin (3.4-5.0) g/dL Globulin Albumin/Globulin Ratio Urine Color (YELLOW) Urine Appearance (CLEAR) Urine pH (5.0-9.0) Ur Specific [place] (1.005-1.030) Urine Protein (NEGATIVE) Urine Glucose (UA) (NEGATIVE) Urine Ketones (NEGATIVE) Urine Occult Blood (NEGATIVE) Urine Nitrite (NEGATIVE) Urine Bilirubin (NEGATIVE) Urine Urobilinogen (0.2-1.0) mg/dL Ur Leukocyte Esterase (NEGATIVE) Urine Opiates Screen Negative (NEGATIVE) Ur Oxycodone Screen Negative (NEGATIVE) Urine Methadone Screen Negative (NEGATIVE) Ur Barbiturates Screen Negative (NEGATIVE) U Tricyclic Antidepress Positive H (NEGATIVE) Ur Phencyclidine Scrn Negative (NEGATIVE) Ur Amphetamine Screen Negative (NEGATIVE) U Methamphetamines Scrn Negative (NEGATIVE) Urine MDMA Screen Negative (NEGATIVE) U Benzodiazepines Scrn Negative (NEGATIVE) Urine Cocaine Screen Negative (NEGATIVE) U Marijuana (THC) Screen Positive H (NEGATIVE) Meds: Medications Generic Name Dose Route Start Last Admin Trade Name Freq PRN Reason Stop Dose Admin Sodium Chloride 10 ml 01/06/20 13:53 01/06/20 14:07 Saline Flush FLUSH 10 ml ASDIRECTED PRN Administration Keep Vein Open Discontinued Medications Generic Name Dose Route Start Last Admin Trade Name Freq PRN Reason Stop Dose Admin Al Hydroxide/Mg Hydroxide 30 ml 01/06/20 14:55 01/06/20 15:07 Gi Cocktail PO 01/06/20 14:56 30 ml ONETIME ONE Administration Sodium Chloride 1,000 mls @ 999 mls/hr 01/06/20 14:00 01/06/20 14:07 Normal Saline IV 01/06/20 15:00 999 mls/hr .BOLUS ONE Administration Ondansetron HCl 4 mg 01/06/20 14:00 01/06/20 14:07 Zofran IV 01/06/20 14:01 4 mg ONETIME ONE Administration Departure - Departure Time of Disposition: 15:56 Disposition: Home, Self-Care 01 Condition: Fair Clinical Impression: Gastritis Qualifiers: Gastritis type: unspecified gastritis Chronicity: acute Gastritis bleeding: without bleeding Qualified Code(s): K29.00 - Acute gastritis without bleeding - Discharge Information *PRESCRIPTION DRUG MONITORING PROGRAM REVIEWED*: No *COPY OF PRESCRIPTION DRUG MONITORING REPORT IN PATIENT PREM: No Instructions: Gastritis, Adult, [id number], Nausea and Vomiting, Adult, Easy- to-Read Forms: ED Department Discharge Additional Instructions: Small sips of water frequently to stay hydrated May use TUMS over the counter for indigestion or stomach pain Follow up with your primary care facility for this ongoing problem Start with clear liquids and move up to bland foods when able Sepsis Event Note - Evaluation Sepsis Screening Result: No Definite Risk - Focused Exam Vital Signs: Vital Signs Temp Pulse Resp BP Pulse Ox 01/06/20 13:41 96.8 F L 65 16 169/86 H 100 Date Exam was Performed: 01/06/20 Time Exam was Performed: 15:56 - My Orders Last 24 Hours: My Active Orders 01/06/20 13:53 Sodium Chloride 0.9% [Saline Flush] 10 ml FLUSH ASDIRECTED PRN Peripheral IV Insertion Adult [OM.PC] Stat 01/06/20 13:54 Peripheral IV Care [RC] . DIRECTED - Assessment/Plan Last 24 Hours: My Active Orders 01/06/20 13:53 Sodium Chloride 0.9% [Saline Flush] 10 ml FLUSH ASDIRECTED PRN Peripheral IV Insertion Adult [OM.PC] Stat 01/06/20 13:54 Peripheral IV Care [RC] . DIRECTED
[2020-01-06] MEDS ORDERED: GI Cocktail Oral Solution 30 ML PO ONE (14:55)
== END 2020-01-06 16:01 | disposition home or self-care (01) ==
LOC: DL.ED 13:29
DX: K29.00 Acute gastritis without bleeding (principal); E78.00 Pure hypercholesterolemia, unspecified; I10 Essential (primary) hypertension; E11.9 Type 2 diabetes mellitus without complications; F17.210 Nicotine dependence, cigarettes, uncomplicated; Z79.84 Long term (current) use of oral hypoglycemic drugs; Z79.82 Long term (current) use of aspirin; Z79.899 Other long term (current) drug therapy
CPT/HCPCS: 36415; 80053; 80305; 81003; 85025; 96361; 96374; 99284; A9270; J2405; J7030

== ENCOUNTER 2020-02-06 21:52 | Emergency (ER) | payer MEDICAID, OTHER ==
[2020-02-06] MEDS ORDERED: Metoclopramide 10 MG/2 ML SDV IVPUSH ONE (23:04)
[2020-02-06] MEDS ORDERED: Iopamidol 612 MG/ML 100 ML Bottle IVPUSH ONE (23:08)
[2020-02-06] MEDS ORDERED: Sodium Chloride 0.9% 1,000 ML IV ONE (23:13)
--- NOTE | 2020-02-06 23:13 | EDM.PDOC ---
ED HPI GENERAL MEDICAL PROBLEM - General Chief Complaint: Abdominal Pain Stated Complaint: THROWING UP, FAINTED, RIGHT CHEEK BONE Time Seen by Provider: 02/06/20 23:11 Source of Information: Reports: Patient History Limitations: Reports: No Limitations - History of Present Illness INITIAL COMMENTS - FREE TEXT/NARRATIVE: c/o recurrent h/o abd pain with vomiting. was here last month Dx viral but problem return today all day not eating. Abdomen Pain Score (Numeric/FACES): 9 - Related Data Allergies Allergy/AdvReac Type Severity Reaction Status Date / Time No Known Allergies Allergy Verified 02/06/20 22:57 Home Meds: Home Meds Aspirin [Ecotrin] 81 mg PO DAILY 10/24/15 [History] Ibuprofen [Motrin] 800 mg PO Q8HR 10/24/15 [History] Lisinopril 20 mg PO DAILY 10/24/15 [History] Simvastatin [Zocor] 20 mg PO BEDTIME 10/24/15 [History] metFORMIN HCl [Metformin HCl] 500 mg PO BID 10/24/15 [History] Past Medical History HEENT History: Reports: Impaired Vision Cardiovascular History: Reports: High Cholesterol, Hypertension Respiratory History: Reports: None Gastrointestinal History: Reports: None Genitourinary History: Reports: Renal Calculus Musculoskeletal History: Reports: Other (See Below) Other Musculoskeletal History: hx lt thumb fx Neurological History: Reports: None Psychiatric History: Reports: None Endocrine/Metabolic History: Reports: Diabetes, Type II Hematologic History: Reports: None Immunologic History: Reports: None Oncologic (Cancer) History: Reports: None Dermatologic History: Reports: None - Infectious Disease History Infectious Disease History: Reports: None - Past Surgical History Head Surgeries/Procedures: Reports: None GI Surgical History: Reports: Hernia Repair/Other Social & Family History - Family History Family Medical History: Noncontributory - Tobacco Use Smoking Status *Q: Never Smoker - Caffeine Use Caffeine Use: Reports: None - Recreational Drug Use Recreational Drug Use: No - Living Situation & Occupation Living situation: Reports: with Family ED ROS GENERAL - Review of Systems Review Of Systems: Comprehensive ROS is negative, except as noted in HPI. ED EXAM, GI/ABD - Physical Exam Exam: See Below Exam Limited By: No Limitations General Appearance: Alert, WD/WN, Mild Distress, Active Emesis, Other (retching) Ears: Hearing Grossly Normal Throat/Mouth: Normal Voice, No Airway Compromise Head: Atraumatic Neck: Non-Tender, Full Range of Motion Respiratory/Chest: No Respiratory Distress Cardiovascular: Regular Rate, Rhythm GI/Abdominal Exam: Soft, Tender, Other (epiG region, BS hyper). No: Distended, Guarding, Rigid, Rebound Neurological: Alert, Oriented, Normal Cognition, Normal Gait, No Motor/Sensory Deficits Psychiatric: Flat Affect, Tearful Skin Exam: Warm, Dry, Normal Color Lymphatic: No Adenopathy Course - Vital Signs Last Recorded V/S: Last Vital Signs Temp 36.7 C 02/06/20 22:58 Pulse 104 H 02/06/20 22:58 Resp 18 02/06/20 22:58 BP 200/104 H 02/06/20 22:58 Pulse Ox 100 02/06/20 22:58 - Orders/Labs/Meds Orders: Active Orders 24 hr Category Date Time Status Blood Glucose Check, Bedside [RC] ONETIME Care 02/06/20 23:08 Active Sodium Chloride 0.9% [Normal Saline] 1,000 ml Med 02/06/20 23:13 Active IV .BOLUS Medication Orders Sodium Chloride (Normal Saline) 1,000 mls @ 999 mls/hr IV .BOLUS ONE Stop: 02/07/20 00:13 Last Admin: 02/06/20 23:15 Dose: 999 mls/hr Labs: Laboratory Tests 02/06/20 02/06/20 02/06/20 Range/Units 23:07 23:07 23:08 WBC 11.0 H (5.0-10.0) 10^3/uL RBC 5.59 (4.6-6.2) 10^6/uL Hgb 16.0 D (14.0-18.0) g/dL Hct 45.7 (40.0-54.0) % MCV 81.8 (80-100) fL MCH 28.6 (27.0-34.0) pg MCHC 35.0 (33.0-35.0) g/dL Plt Count 403 (150-450) 10^3/uL Neut % (Auto) 76.3 H (42.2-75.2) % Lymph % (Auto) 18.0 L (20.5-50.1) % [place] % (Auto) 5.2 (2-8) % Eos % (Auto) 0.2 L (1.0-3.0) % Baso % (Auto) 0.3 (0.0-1.0) % Sodium 135 L (136-145) mmol/L Potassium 3.4 L (3.5-5.1) mmol/L Chloride 97 L (98-107) mmol/L Carbon Dioxide 24 (21-32) mmol/L Anion Gap 17.4 H (7-13) mEq/L BUN 10 (7-18) mg/dL Creatinine 1.11 (0.70-1.30) mg/dL Est Cr Clr Drug Dosing 88.81 mL/min Estimated GFR (MDRD) > 60 BUN/Creatinine Ratio 9.0 (No establ ref range) Glucose 144 H (74-99) mg/dL POC Glucose 137 H (70-105) mg/dl Calcium 9.1 (8.5-10.1) mg/dL Total Bilirubin 0.7 (0.2-1.0) mg/dL AST 14 L (15-37) U/L ALT 16 (16-63) U/L Alkaline Phosphatase 107 (46-116) U/L Total Protein 8.5 H (6.4-8.2) g/dL Albumin 4.0 (3.4-5.0) g/dL Globulin 4.5 Albumin/Globulin Ratio 0.9 Amylase 14 L (25-115) U/L Lipase 34 L (73-393) U/L Meds: Medications Generic Name Dose Route Start Last Admin Trade Name Freq PRN Reason Stop Dose Admin Sodium Chloride 1,000 mls @ 999 mls/hr 02/06/20 23:13 02/06/20 23:15 Normal Saline IV 02/07/20 00:13 999 mls/hr .BOLUS ONE Administration Discontinued Medications Generic Name Dose Route Start Last Admin Trade Name Freq PRN Reason Stop Dose Admin Iopamidol 100 ml 02/06/20 23:08 02/06/20 23:45 Isovue-300 (61%) IVPUSH 02/06/20 23:09 75 ml ONETIME ONE Administration Metoclopramide HCl 10 mg 02/06/20 23:04 02/06/20 23:09 Reglan IVPUSH 02/06/20 23:05 10 mg ONETIME ONE Administration - Re-Assessments/Exams Free Text/Narrative Re-Assessment/Exam: 02/06/20 23:52 results discussed with pt who is feeling better presently Departure - Departure Time of Disposition: 23:53 Disposition: Home, Self-Care 01 Condition: Good Clinical Impression: Constipation by delayed colonic transit Abdominal pain Qualifiers: Abdominal location: epigastric Qualified Code(s): R10.13 - Epigastric pain - Discharge Information Instructions: Constipation, Adult, [id number] Forms: ED Department Discharge Additional Instructions: 1) avoid solid foods next 24 hours 2) have popsicle, jello, prune juice, smoothie 3) see clinic for GALL BLADDER ULTRASOUND Sepsis Event Note - Evaluation Sepsis Screening Result: No Definite Risk - Focused Exam Vital Signs: Vital Signs Temp Pulse Resp BP Pulse Ox 02/06/20 22:58 36.7 C 104 H 18 200/104 H 100 Date Exam was Performed: 02/06/20 Time Exam was Performed: 23:52 - My Orders Last 24 Hours: My Active Orders 02/06/20 23:08 Blood Glucose Check, Bedside [RC] ONETIME 02/06/20 23:13 Sodium Chloride 0.9% [Normal Saline] 1,000 ml IV .BOLUS - Assessment/Plan Last 24 Hours: My Active Orders 02/06/20 23:08 Blood Glucose Check, Bedside [RC] ONETIME 02/06/20 23:13 Sodium Chloride 0.9% [Normal Saline] 1,000 ml IV .BOLUS
[2020-02-06 23:44] LABS: ANION GAP 17.4 mEq/L (7-13); CHLORIDE,CL 97 mmol/L (98-107); SODIUM,NA 135 mmol/L (136-145)
[2020-02-07 00:02] VITALS: BP 129/69; PULSE 89
== END 2020-02-07 00:01 | disposition home or self-care (01) ==
LOC: DL.ED 21:52
DX: K59.01 Slow transit constipation (principal); R10.13 Epigastric pain; I10 Essential (primary) hypertension; E11.9 Type 2 diabetes mellitus without complications; E78.00 Pure hypercholesterolemia, unspecified; Z79.84 Long term (current) use of oral hypoglycemic drugs; Z79.899 Other long term (current) drug therapy; Z79.82 Long term (current) use of aspirin
CPT/HCPCS: 36415; 74177; 80053; 82150; 82962; 83690; 85025; 96361; 96374; 99284; J2765; J7030; Q9967

== ENCOUNTER 2020-02-09 14:25 | Emergency (ER) | payer MEDICAID ==
[2020-02-09 15:07] VITALS: BP 177/98; PULSE 71
--- NOTE | 2020-02-09 15:15 | EDM.PDOC ---
ED HPI GENERAL MEDICAL PROBLEM - General Chief Complaint: Gastrointestinal Problem Stated Complaint: throwing up cannot keep anything down Time Seen by Provider: 02/09/20 15:00 Source of Information: Reports: Patient History Limitations: Reports: No Limitations - History of Present Illness INITIAL COMMENTS - FREE TEXT/NARRATIVE: This 44 yo male patient reports to the ED with nausea/vomiting that started today. The patient was seen in the ED several days ago and advised that he had constipation, but was also advised to get a gallbladder ultrasound. The patient reports he has an appointment at the clinic tomorrow. The patient reports he has been following the diet as he was directed. The patient reports he has not been having any regular bowel movements. Onset: Today Duration: Constant Location: Reports: Abdomen Quality: Reports: Other Severity: Moderate Improves with: Reports: None Worsens with: Reports: None Context: Reports: Other Associated Symptoms: Reports: No Other Symptoms - Related Data Allergies Allergy/AdvReac Type Severity Reaction Status Date / Time No Known Allergies Allergy Verified 02/06/20 22:57 Home Meds: Home Meds Aspirin [Ecotrin] 81 mg PO DAILY 10/24/15 [History] Ibuprofen [Motrin] 800 mg PO Q8HR 10/24/15 [History] Lisinopril 20 mg PO DAILY 10/24/15 [History] Simvastatin [Zocor] 20 mg PO BEDTIME 10/24/15 [History] metFORMIN HCl [Metformin HCl] 500 mg PO BID 10/24/15 [History] Past Medical History HEENT History: Reports: Impaired Vision Cardiovascular History: Reports: High Cholesterol, Hypertension Respiratory History: Reports: None Gastrointestinal History: Reports: None Genitourinary History: Reports: Renal Calculus Musculoskeletal History: Reports: Other (See Below) Other Musculoskeletal History: hx lt thumb fx Neurological History: Reports: None Psychiatric History: Reports: None Endocrine/Metabolic History: Reports: Diabetes, Type II Hematologic History: Reports: None Immunologic History: Reports: None Oncologic (Cancer) History: Reports: None Dermatologic History: Reports: None - Infectious Disease History Infectious Disease History: Reports: None - Past Surgical History Head Surgeries/Procedures: Reports: None GI Surgical History: Reports: Hernia Repair/Other Social & Family History - Family History Family Medical History: Noncontributory - Caffeine Use Caffeine Use: Reports: None - Living Situation & Occupation Living situation: Reports: with Family ED ROS GENERAL - Review of Systems Review Of Systems: Comprehensive ROS is negative, except as noted in HPI. ED EXAM, GI/ABD - Physical Exam Exam: See Below Exam Limited By: No Limitations General Appearance: Alert, WD/WN, Moderate Distress Eyes: Bilateral: Normal Appearance, EOMI Ears: Normal External Exam, Normal Canal, Hearing Grossly Normal, Normal TMs Nose: Normal Inspection, Normal Mucosa, No Blood Throat/Mouth: Normal Inspection, Normal Lips, Normal Teeth, Normal Gums, Normal Oropharynx, Normal Voice, No Airway Compromise Head: Atraumatic, Normocephalic Neck: Normal Inspection, Supple, Non-Tender, Full Range of Motion Respiratory/Chest: No Respiratory Distress, Lungs Clear, Normal Breath Sounds, No Accessory Muscle Use, Chest Non-Tender Cardiovascular: Normal Peripheral Pulses, Regular Rate, Rhythm, No Edema, No Gallop, No JVD, No Murmur, No Rub GI/Abdominal Exam: Normal Bowel Sounds, Soft, Non-Tender, No Organomegaly, No Distention, No Abnormal Bruit, No Mass, Pelvis Stable (Male) Exam: Deferred Rectal (Males) Exam: Deferred Back Exam: Normal Inspection, Full Range of Motion, NT Extremities: Normal Inspection, Normal Range of Motion, Non-Tender, Normal Capillary Refill, No Pedal Edema Neurological: Alert, Oriented, CN II-XII Intact, Normal Cognition, Normal Gait, Normal Reflexes, No Motor/Sensory Deficits Psychiatric: Normal Affect, Normal Mood Skin Exam: Warm, Dry, Intact, Normal Color, No Rash Lymphatic: No Adenopathy Course - Vital Signs Last Recorded V/S: Last Vital Signs Temp 36.7 C 02/09/20 14:57 Pulse 71 02/09/20 14:57 Resp 18 02/09/20 14:57 BP 177/98 H 02/09/20 14:57 Pulse Ox 99 02/09/20 14:57 - Orders/Labs/Meds Orders: Active Orders 24 hr Category Date Time Status Abdomen Pelvis w Cont [CT] Urgent Exams 02/09/20 16:11 Ordered Metoclopramide [Reglan] Med 02/09/20 16:48 Once 10 mg IVPUSH ONETIME ONE Labs: Laboratory Tests 02/09/20 02/09/20 Range/Units 15:15 15:15 WBC 9.0 (5.0-10.0) 10^3/uL RBC 4.98 (4.6-6.2) 10^6/uL Hgb 14.1 D (14.0-18.0) g/dL Hct 40.9 (40.0-54.0) % MCV 82.1 (80-100) fL MCH 28.3 (27.0-34.0) pg MCHC 34.5 (33.0-35.0) g/dL Plt Count 376 (150-450) 10^3/uL Neut % (Auto) 72.7 (42.2-75.2) % Lymph % (Auto) 20.4 L (20.5-50.1) % [place] % (Auto) 5.7 (2-8) % Eos % (Auto) 0.9 L (1.0-3.0) % Baso % (Auto) 0.3 (0.0-1.0) % Sodium 135 L (136-145) mmol/L Potassium 3.4 L (3.5-5.1) mmol/L Chloride 98 (98-107) mmol/L Carbon Dioxide 27 (21-32) mmol/L Anion Gap 13.4 H (7-13) mEq/L BUN 7 (7-18) mg/dL Creatinine 1.06 (0.70-1.30) mg/dL Est Cr Clr Drug Dosing 93.11 mL/min Estimated GFR (MDRD) > 60 BUN/Creatinine Ratio 6.6 (No establ ref range) Glucose 150 H (74-99) mg/dL Calcium 9.3 (8.5-10.1) mg/dL Total Bilirubin 0.7 (0.2-1.0) mg/dL AST 15 (15-37) U/L ALT 18 (16-63) U/L Alkaline Phosphatase 89 (46-116) U/L Total Protein 7.7 (6.4-8.2) g/dL Albumin 4.1 (3.4-5.0) g/dL Globulin 3.6 Albumin/Globulin Ratio 1.1 Amylase 17 L (25-115) U/L Lipase 43 L (73-393) U/L Meds: Medications Discontinued Medications Generic Name Dose Route Start Last Admin Trade Name Freq PRN Reason Stop Dose Admin Iopamidol 100 ml 02/09/20 16:12 02/09/20 16:25 Isovue-300 (61%) IVPUSH 02/09/20 16:13 75 ml ONETIME ONE Administration Departure - Departure Time of Disposition: 16:48 Disposition: Home, Self-Care 01 Condition: Fair Clinical Impression: Enlarged gallbladder Constipation Qualifiers: Constipation type: unspecified constipation type Qualified Code(s): K59.00 - Constipation, unspecified - Discharge Information *PRESCRIPTION DRUG MONITORING PROGRAM REVIEWED*: Not Applicable *COPY OF PRESCRIPTION DRUG MONITORING REPORT IN PATIENT PREM: Not Applicable Instructions: Constipation, Adult, [id number], Gallbladder Eating Plan Forms: ED Department Discharge Care Plan Goals: The patient was advised of the examination, lab and CT results during the visit. The patient was given IV Reglan while in the ED. The patient was encouraged to take an adult dose of MiraLax daily for the next 3-4 days to encouraged bowel movements. The patient should increase his oral fluid intake. The patient should follow through with the scheduled Gallbladder ultrasound as scheduled for tomorrow. If the patient has any additional symptoms or concerns , the patient should either return to the emergency department or visit his primary care facility. Sepsis Event Note - Evaluation Sepsis Screening Result: No Definite Risk - Focused Exam Vital Signs: Vital Signs Temp Pulse Resp BP Pulse Ox 02/09/20 14:57 36.7 C 71 18 177/98 H 99 Date Exam was Performed: 02/09/20 Time Exam was Performed: 16:48 - My Orders Last 24 Hours: My Active Orders 02/09/20 16:11 Abdomen Pelvis w Cont [CT] Urgent 02/09/20 16:48 Metoclopramide [Reglan] 10 mg IVPUSH ONETIME ONE - Assessment/Plan Last 24 Hours: My Active Orders 02/09/20 16:11 Abdomen Pelvis w Cont [CT] Urgent 02/09/20 16:48 Metoclopramide [Reglan] 10 mg IVPUSH ONETIME ONE
[2020-02-09 15:43] LABS: ANION GAP 13.4 mEq/L (7-13); CHLORIDE,CL 98 mmol/L (98-107); SODIUM,NA 135 mmol/L (136-145)
[2020-02-09] MEDS ORDERED: Iopamidol 612 MG/ML 100 ML Bottle IVPUSH ONE (16:12)
[2020-02-09] MEDS ORDERED: Metoclopramide 10 MG/2 ML SDV IVPUSH ONE (16:48)
== END 2020-02-09 17:05 | disposition home or self-care (01) ==
LOC: DL.ED 14:25
DX: K59.00 Constipation, unspecified (principal); K82.8 Other specified diseases of gallbladder; E78.00 Pure hypercholesterolemia, unspecified; I10 Essential (primary) hypertension; E11.9 Type 2 diabetes mellitus without complications; Z79.82 Long term (current) use of aspirin; Z79.84 Long term (current) use of oral hypoglycemic drugs; Z79.899 Other long term (current) drug therapy
CPT/HCPCS: 36415; 74177; 80053; 82150; 83690; 85025; 96374; 99284; J2765; Q9967

== ENCOUNTER 2020-06-04 07:14 | Emergency (ER) | payer MEDICAID ==
[2020-06-04 07:21] VITALS: BP 149/88; PULSE 96
[2020-06-04] MEDS ORDERED: Sodium Chloride 0.9% 10 ML Syringe FLUSH PRN (07:32)
[2020-06-04] MEDS ORDERED: Promethazine 25 MG/ML SDV IM ONE (07:34)
[2020-06-04] MEDS ORDERED: Sodium Chloride 0.9% 1,000 ML IV ONE (07:34)
--- NOTE | 2020-06-04 07:48 | EDM.PDOC ---
ED HPI GENERAL MEDICAL PROBLEM - General Chief Complaint: Abdominal Pain Stated Complaint: vomiting Time Seen by Provider: 06/04/20 07:30 Source of Information: Reports: Patient - History of Present Illness INITIAL COMMENTS - FREE TEXT/NARRATIVE: Pt is here for vomiting and abdominal pain. It started this morning. He has had this before. Nothing seems to make it better. His last BM was yesterday, but he reports he feels constipated due to his suboxone. He admits to smoking marijuana. No fevers or chills. He took some zofran, but thinks that he vomited it back up. Onset: Today Onset Time: 05:00 Location: Reports: Abdomen Epigastric Pain Score (Numeric/FACES): 10 - Related Data Allergies Allergy/AdvReac Type Severity Reaction Status Date / Time No Known Allergies Allergy Verified 06/04/20 07:17 Home Meds: Home Meds Aspirin [Ecotrin] 81 mg PO DAILY 10/24/15 [History] Ibuprofen [Motrin] 800 mg PO Q8HR 10/24/15 [History] Lisinopril 20 mg PO DAILY 10/24/15 [History] Simvastatin [Zocor] 20 mg PO BEDTIME 10/24/15 [History] metFORMIN HCl [Metformin HCl] 500 mg PO BID 10/24/15 [History] Buprenorphine HCl/Naloxone HCl [Suboxone 4 mg-1 mg Sl Film] 1 film PO ASDIRECTED 06/04/20 [History] Ondansetron [Zofran ODT] 4 mg PO ASDIRECTED PRN 06/04/20 [History] Past Medical History HEENT History: Reports: Impaired Vision Cardiovascular History: Reports: High Cholesterol, Hypertension Respiratory History: Reports: None Gastrointestinal History: Reports: None Genitourinary History: Reports: Renal Calculus Musculoskeletal History: Reports: Other (See Below) Other Musculoskeletal History: hx lt thumb fx Neurological History: Reports: None Psychiatric History: Reports: None Endocrine/Metabolic History: Reports: Diabetes, Type II Hematologic History: Reports: None Immunologic History: Reports: None Oncologic (Cancer) History: Reports: None Dermatologic History: Reports: None - Infectious Disease History Infectious Disease History: Reports: None - Past Surgical History Head Surgeries/Procedures: Reports: None GI Surgical History: Reports: Hernia Repair/Other Social & Family History - Family History Family Medical History: Noncontributory - Caffeine Use Caffeine Use: Reports: None - Living Situation & Occupation Living situation: Reports: with Family ED ROS GENERAL - Review of Systems Review Of Systems: Comprehensive ROS is negative, except as noted in HPI. ED EXAM, GI/ABD - Physical Exam Exam: See Below General Appearance: Alert, Anxious, Thin, Active Emesis Ears: Normal External Exam Head: Atraumatic, Normocephalic Neck: Normal Inspection, Supple Respiratory/Chest: No Respiratory Distress, Lungs Clear, Normal Breath Sounds, No Accessory Muscle Use, Chest Non-Tender Cardiovascular: Normal Peripheral Pulses, Regular Rate, Rhythm, No Edema, No Murmur GI/Abdominal Exam: Normal Bowel Sounds, Soft, No Distention, No Mass, Guarding, Tender (diffuse) (Male) Exam: Deferred Rectal (Males) Exam: Deferred Extremities: Normal Inspection, Normal Range of Motion, No Pedal Edema Neurological: Alert, Oriented Psychiatric: Normal Affect, Normal Mood Skin Exam: Warm, Dry, Intact, Normal Color, No Rash Course - Vital Signs Last Recorded V/S: Last Vital Signs Temp 97.7 F 06/04/20 07:19 Pulse 96 06/04/20 07:19 Resp 22 H 06/04/20 07:19 BP 149/88 H 06/04/20 07:19 Pulse Ox 100 06/04/20 07:19 - Orders/Labs/Meds Orders: Active Orders 24 hr Category Date Time Status Peripheral IV Care [RC] . DIRECTED Care 06/04/20 07:32 Ordered Abdomen Pelvis wo Cont [CT] Urgent Exams 06/04/20 08:39 Ordered Sodium Chloride 0.9% [Saline Flush] Med 06/04/20 07:32 Ordered 10 ml FLUSH ASDIRECTED PRN Peripheral IV Insertion Adult [OM.PC] Stat Oth 06/04/20 07:32 Ordered Medication Orders Sodium Chloride (Saline Flush) 10 ml FLUSH ASDIRECTED PRN PRN Reason: Keep Vein Open Labs: Laboratory Tests 06/04/20 06/04/20 06/04/20 Range/Units 07:27 07:27 07:27 WBC 7.9 (5.0-10.0) 10^3/uL RBC 4.75 (4.6-6.2) 10^6/uL Hgb 14.2 (14.0-18.0) g/dL Hct 39.9 L (40.0-54.0) % MCV 84.0 (80-100) fL MCH 29.9 (27.0-34.0) pg MCHC 35.6 H (33.0-35.0) g/dL Plt Count 359 (150-450) 10^3/uL Neut % (Auto) 70.2 (42.2-75.2) % Lymph % (Auto) 22.9 (20.5-50.1) % [place] % (Auto) 6.1 (2-8) % Eos % (Auto) 0.4 L (1.0-3.0) % Baso % (Auto) 0.4 (0.0-1.0) % Sodium 138 (136-145) mmol/L Potassium 3.1 L (3.5-5.1) mmol/L Chloride 99 (98-107) mmol/L Carbon Dioxide 24 (21-32) mmol/L Anion Gap 18.1 H (7-13) mEq/L BUN 14 (7-18) mg/dL Creatinine 0.95 (0.70-1.30) mg/dL Est Cr Clr Drug Dosing 101.86 mL/min Estimated GFR (MDRD) > 60 BUN/Creatinine Ratio 14.7 (No establ ref range) Glucose 148 H (74-99) mg/dL Lactic Acid 2.5 H* (0.4-2.0) mmol/L Calcium 9.5 (8.5-10.1) mg/dL Total Bilirubin 1.1 H (0.2-1.0) mg/dL AST 13 L (15-37) U/L ALT 20 (16-63) U/L Alkaline Phosphatase 82 (46-116) U/L Troponin I < 0.017 (0.000-0.056) ng/mL Total Protein 8.1 (6.4-8.2) g/dL Albumin 4.4 (3.4-5.0) g/dL Globulin 3.7 Albumin/Globulin Ratio 1.2 Urine Color (YELLOW) Urine Appearance (CLEAR) Urine pH (5.0-9.0) Ur Specific [place] (1.005-1.030) Urine Protein (NEGATIVE) Urine Glucose (UA) (NEGATIVE) Urine Ketones (NEGATIVE) Urine Occult Blood (NEGATIVE) Urine Nitrite (NEGATIVE) Urine Bilirubin (NEGATIVE) Urine Urobilinogen (0.2-1.0) mg/dL Ur Leukocyte Esterase (NEGATIVE) Urine Opiates Screen (NEGATIVE) Ur Oxycodone Screen (NEGATIVE) Urine Methadone Screen (NEGATIVE) Ur Barbiturates Screen (NEGATIVE) U Tricyclic Antidepress (NEGATIVE) Ur Phencyclidine Scrn (NEGATIVE) Ur Amphetamine Screen (NEGATIVE) U Methamphetamines Scrn (NEGATIVE) Urine MDMA Screen (NEGATIVE) U Benzodiazepines Scrn (NEGATIVE) Urine Cocaine Screen (NEGATIVE) U Marijuana (THC) Screen (NEGATIVE) 06/04/20 06/04/20 Range/Units 08:30 08:30 WBC (5.0-10.0) 10^3/uL RBC (4.6-6.2) 10^6/uL Hgb (14.0-18.0) g/dL Hct (40.0-54.0) % MCV (80-100) fL MCH (27.0-34.0) pg MCHC (33.0-35.0) g/dL Plt Count (150-450) 10^3/uL Neut % (Auto) (42.2-75.2) % Lymph % (Auto) (20.5-50.1) % [place] % (Auto) (2-8) % Eos % (Auto) (1.0-3.0) % Baso % (Auto) (0.0-1.0) % Sodium (136-145) mmol/L Potassium (3.5-5.1) mmol/L Chloride (98-107) mmol/L Carbon Dioxide (21-32) mmol/L Anion Gap (7-13) mEq/L BUN (7-18) mg/dL Creatinine (0.70-1.30) mg/dL Est Cr Clr Drug Dosing mL/min Estimated GFR (MDRD) BUN/Creatinine Ratio (No establ ref range) Glucose (74-99) mg/dL Lactic Acid (0.4-2.0) mmol/L Calcium (8.5-10.1) mg/dL Total Bilirubin (0.2-1.0) mg/dL AST (15-37) U/L ALT (16-63) U/L Alkaline Phosphatase (46-116) U/L Troponin I (0.000-0.056) ng/mL Total Protein (6.4-8.2) g/dL Albumin (3.4-5.0) g/dL Globulin Albumin/Globulin Ratio Urine Color Yellow (YELLOW) Urine Appearance Cloudy (CLEAR) Urine pH >= 9.0 (5.0-9.0) Ur Specific [place] 1.015 (1.005-1.030) Urine Protein Negative (NEGATIVE) Urine Glucose (UA) Negative (NEGATIVE) Urine Ketones 40 H (NEGATIVE) Urine Occult Blood Negative (NEGATIVE) Urine Nitrite Negative (NEGATIVE) Urine Bilirubin Negative (NEGATIVE) Urine Urobilinogen 1.0 (0.2-1.0) mg/dL Ur Leukocyte Esterase Negative (NEGATIVE) Urine Opiates Screen Negative (NEGATIVE) Ur Oxycodone Screen Negative (NEGATIVE) Urine Methadone Screen Negative (NEGATIVE) Ur Barbiturates Screen Negative (NEGATIVE) U Tricyclic Antidepress Negative (NEGATIVE) Ur Phencyclidine Scrn Negative (NEGATIVE) Ur Amphetamine Screen Negative (NEGATIVE) U Methamphetamines Scrn Positive H (NEGATIVE) Urine MDMA Screen Negative (NEGATIVE) U Benzodiazepines Scrn Negative (NEGATIVE) Urine Cocaine Screen Negative (NEGATIVE) U Marijuana (THC) Screen Positive H (NEGATIVE) Meds: Medications Generic Name Dose Route Start Last Admin Trade Name Freq PRN Reason Stop Dose Admin Sodium Chloride 10 ml 06/04/20 07:32 Saline Flush FLUSH ASDIRECTED PRN Keep Vein Open Discontinued Medications Generic Name Dose Route Start Last Admin Trade Name Freq PRN Reason Stop Dose Admin Diphenhydramine HCl 50 mg 06/04/20 09:01 06/04/20 09:15 Benadryl IVPUSH 06/04/20 09:02 50 mg ONETIME ONE Administration Sodium Chloride 1,000 mls @ 999 mls/hr 06/04/20 07:34 06/04/20 07:42 Normal Saline IV 06/04/20 08:34 999 mls/hr .BOLUS ONE Administration Iopamidol 100 ml 06/04/20 08:50 Isovue-300 (61%) IVPUSH 06/04/20 08:51 ONETIME ONE Promethazine HCl 50 mg 06/04/20 07:34 06/04/20 07:48 Phenergan IM 06/04/20 07:35 50 mg ONETIME ONE Administration - Re-Assessments/Exams Free Text/Narrative Re-Assessment/Exam: Patient was very fidgety and not following all commands. Unable to cooperate fully with further exams. Ambulating around room without distress and asking for a mattress so he can sleep. Admitted to using meth last week. Hasn't used his suboxone since yesterday as it is only "as needed" per the patient. is in the parking lot waiting to take him home. 06/04/20 09:20 Departure - Departure Time of Disposition: 09:24 Disposition: Home, Self-Care 01 Condition: Good Clinical Impression: Acute drug intoxication Qualifiers: Complication of substance-induced condition: uncomplicated Qualified Code(s): F19.920 - Other psychoactive substance use, unspecified with intoxication, uncomplicated - Discharge Information *PRESCRIPTION DRUG MONITORING PROGRAM REVIEWED*: Not Applicable *COPY OF PRESCRIPTION DRUG MONITORING REPORT IN PATIENT PREM: Not Applicable Instructions: Finding Treatment for Addiction, Abdominal Pain, Adult, [id number] Forms: ED Department Discharge Sepsis Event Note (ED) - Evaluation Sepsis Screening Result: No Definite Risk - Focused Exam Vital Signs: Vital Signs Temp Pulse Resp BP Pulse Ox 06/04/20 07:19 97.7 F 96 22 H 149/88 H 100 - My Orders Last 24 Hours: My Active Orders 06/04/20 07:32 Peripheral IV Care [RC] . DIRECTED Sodium Chloride 0.9% [Saline Flush] 10 ml FLUSH ASDIRECTED PRN Peripheral IV Insertion Adult [OM.PC] Stat 06/04/20 08:39 Abdomen Pelvis wo Cont [CT] Urgent - Assessment/Plan Last 24 Hours: My Active Orders 06/04/20 07:32 Peripheral IV Care [RC] . DIRECTED Sodium Chloride 0.9% [Saline Flush] 10 ml FLUSH ASDIRECTED PRN Peripheral IV Insertion Adult [OM.PC] Stat 06/04/20 08:39 Abdomen Pelvis wo Cont [CT] Urgent Assessment:: 44 yo male with abdominal pain secondary to acute drug intoxication Plan: Do not use methamphetamine Use home zofran every 8 hours as needed for nausea/vomiting reviewed reasons to call/return to the ER FU with PCP in 3-5 days
[2020-06-04 07:58] LABS: ANION GAP 18.1 mEq/L (7-13); CHLORIDE,CL 99 mmol/L (98-107); SODIUM,NA 138 mmol/L (136-145)
--- NOTE | 2020-06-04 08:14 | CR ---
PROCEDURE INFORMATION: Exam: XR Abdomen, 1 View Exam date and time: 06/04/2020 7:38 AM Age: 44 years old Clinical indication: Abdominal pain; Generalized TECHNIQUE: Imaging protocol: XR of the abdomen. Views: Frontal supine view of the abdomen. 1 View. COMPARISON: CT Abdomen Pelvis w Cont 02/09/2020 4:25 PM FINDINGS: Gastrointestinal tract: Unremarkable. No bowel dilation. Vasculature: The right iliac common iliac artery redemonstrates proximal atherosclerotic calcifications to the right of L5. Bones/joints: Moderately severe left, severe right primary hip osteoarthritis. IMPRESSION: No acute abdominal or pelvic abnormality identified.
[2020-06-04] MEDS ORDERED: Iopamidol 612 MG/ML 100 ML Bottle IVPUSH ONE (08:50)
[2020-06-04] MEDS ORDERED: diphenhydrAMINE 50 MG/ML SDV IVPUSH ONE (09:01)
--- NOTE | 2020-06-04 09:43 | CT ---
PROCEDURE INFORMATION: Exam: CT Abdomen And Pelvis Without Contrast Exam date and time: 06/04/2020 8:57 AM Age: 44 years old Clinical indication: Abdominal pain; Generalized; Patient HX: History of renal stones TECHNIQUE: Imaging protocol: Computed tomography of the abdomen and pelvis without contrast. Radiation optimization: All CT scans at this facility use at least one of these dose optimization techniques: automated exposure control; mA and/or kV adjustment per patient size (includes targeted exams where dose is matched to clinical indication); or iterative reconstruction. COMPARISON: CT Abdomen Pelvis w Cont 02/09/2020 4:25 PM FINDINGS: Liver: Unremarkable as visualized. Gallbladder and bile ducts: Unremarkable as visualized. Pancreas: Unremarkable as visualized. Spleen: Unremarkable as visualized. Adrenals: Unremarkable as visualized. Kidneys and ureters: Left renal anterior upper pole 1.1 mm calyceal calculus. Stomach and bowel: Unremarkable as visualized. Appendix: Not identified. Intraperitoneal space: Free breathing and gross body motion artifacts are present throughout the examination despite repetition. Vasculature: Moderate aortic atherosclerotic calcification without aneurysm. The iliac arteries show moderate bilateral atherosclerotic calcifications without evidence of aneurysm. Proximal LAD coronary artery calcifications. Lymph nodes: No enlarged lymph nodes as visualized. Bladder: Unremarkable as visualized. Reproductive: Bilateral vas deferens calcification suggesting diabetes. Left pelvic phlebolith. Bones/joints: Bilateral hip primary osteoarthritis. L5-S1 spondylosis with bilateral neural foraminal stenosis, severe right lateral recess stenosis, possible gas containing left paracentral disc protrusion. Soft tissues: Unremarkable. Other findings: The left hemidiaphragm is moderately elevated. IMPRESSION: 1. Limitations of motion. 2. No acute abdominal or pelvic abnormality identified as visualized. 3. Left renal calyceal lithiasis. 4. Coronary atherosclerosis.
== END 2020-06-04 09:39 | disposition home or self-care (01) ==
LOC: DL.ED 07:14
DX: F11.129 Opioid abuse with intoxication, unspecified (principal); R10.13 Epigastric pain; E11.9 Type 2 diabetes mellitus without complications; I10 Essential (primary) hypertension; F17.210 Nicotine dependence, cigarettes, uncomplicated; Z79.82 Long term (current) use of aspirin; Z79.899 Other long term (current) drug therapy
CPT/HCPCS: 36415; 74018; 74176; 80053; 80305; 81003; 83605; 84484; 85025; 96361; 96372; 96374; 99284; J1200; J2550; J7030

== ENCOUNTER 2022-05-24 14:41 | Emergency (ER) | payer MEDICAID ==
[2022-05-24 14:51] VITALS: BP 130/91; PULSE 107
[2022-05-24 15:49] LABS: AMPHETAMINES,URINE NEGATIVE (NEGATIVE); BARBITURATES,URINE NEGATIVE (NEGATIVE); BENZODIAZEPINE,URINE NEGATIVE (NEGATIVE); MDMA (ECSTASY), URINE NEGATIVE (NEGATIVE); METHADONE,URINE NEGATIVE (NEGATIVE); METHAMPHETAMINES,URINE POSITIVE (NEGATIVE); OPIATES,URINE NEGATIVE (NEGATIVE); OXYCODONE,URINE NEGATIVE (NEGATIVE); PHENCYCLIDINE,URINE NEGATIVE (NEGATIVE); TCA,URINE NEGATIVE (NEGATIVE)
[2022-05-24 15:55] LABS: ANION GAP 13.1 mEq/L (7-13); CHLORIDE,CL 94 mmol/L (98-107); SODIUM,NA 133 mmol/L (136-145)
[2022-05-24 15:56] LABS: ESTIMATED GFR 116 mL/min (>=60)
[2022-05-24] MEDS ORDERED: Potassium Chloride 10 MEQ Tab.ER PO ONE (16:14)
[2022-05-24] MEDS ORDERED: Magnesium Sulfate/Water 2 GM in Premix Bag 1 BAG IV ONE (16:21)
[2022-05-24] MEDS ORDERED: cefTRIAXone 2 GM in Sodium Chloride 0.9% 100 ML IV ONE (16:28)
[2022-05-24] MEDS ORDERED: Azithromycin 500 MG in Sodium Chloride 0.9% 250 ML IV ONE (16:29)
== END 2022-05-24 17:22 | disposition left against medical advice (07) ==
LOC: DL.ED 14:41
DX: J18.9 Pneumonia, unspecified organism (principal); E83.42 Hypomagnesemia; E78.00 Pure hypercholesterolemia, unspecified; I10 Essential (primary) hypertension; Z79.82 Long term (current) use of aspirin; Z79.899 Other long term (current) drug therapy; Z79.84 Long term (current) use of oral hypoglycemic drugs; Z20.822 Contact with and (suspected) exposure to COVID-19
CPT/HCPCS: 36415; 71045; 80053; 80305-QW; 80307; 81003; 83605; 83690; 83735; 84100; 84443; 84484; 85025; 85379; 86140; 87040; 87389; 93005; 93010; 99284; 99285; A9270-GY; J0456; J3475; J7050; U0002

== ENCOUNTER 2022-06-24 14:29 | Emergency (ER) | payer MEDICAID ==
[2022-06-24] MEDS ORDERED: Insulin Regular, Human 100 Units/ML 3 ML Vial IV ONE (15:00)
[2022-07-19 15:35] LABS: ANION GAP 10.2 mEq/L (7-13); CHLORIDE,CL 94 mmol/L (98-107); SODIUM,NA 131 mmol/L (136-145)
[2022-07-19 15:36] LABS: ESTIMATED GFR 112 mL/min (>=60)
[2022-07-19 15:39] LABS: AMPHETAMINES,URINE NEGATIVE (NEGATIVE); BARBITURATES,URINE NEGATIVE (NEGATIVE); BENZODIAZEPINE,URINE NEGATIVE (NEGATIVE); MDMA (ECSTASY), URINE NEGATIVE (NEGATIVE); METHADONE,URINE NEGATIVE (NEGATIVE); METHAMPHETAMINES,URINE NEGATIVE (NEGATIVE); OPIATES,URINE NEGATIVE (NEGATIVE); PHENCYCLIDINE,URINE NEGATIVE (NEGATIVE); TCA,URINE NEGATIVE (NEGATIVE)
[2022-07-19 15:40] LABS: OXYCODONE,URINE NEGATIVE (NEGATIVE)
== END 2022-06-24 16:30 | disposition home or self-care (01) ==
LOC: DL.ED 14:29
DX: E11.65 Type 2 diabetes mellitus with hyperglycemia (principal); I10 Essential (primary) hypertension; Z86.16 Personal history of COVID-19
CPT/HCPCS: 36415; 71045; 80053; 80305; 81001; 84484; 85025; 85379; 87086; 96360; 99284; J1815; 81003

== ENCOUNTER 2023-02-12 16:04 | Observation (INO) | payer MEDICAID ==
[2023-02-12] MEDS ORDERED: Sodium Chloride 0.9% 1,000 ML IV ONE ×2 (16:17→16:54)
[2023-02-12] MEDS ORDERED: Insulin Regular, Human 100 Units/ML 3 ML Vial IV ONE (16:18)
[2023-02-12 16:34] LABS: BASOPHILS PERCENT AUTO 0.5 % (0.0-1.0); EOSINOPHILS PERCENT AUTO 3.4 % (1.0-3.0); HEMATOCRIT 30.7 % (40.0-54.0); HEMOGLOBIN 10.3 g/dL (14.0-18.0); LYMPHOCYTES PERCENT AUTO 36.5 % (20.5-50.1); MEAN CORPUSCULAR HEMOGLOBIN 29.7 pg (27.0-34.0); MEAN CORPUSCULAR HGB CONC 33.6 g/dL (33.0-35.0); MEAN CORPUSCULAR VOLUME 88.5 fL (80-100); MONOCYTES PERCENT AUTO 5.4 % (2-8); NEUTROPHILS PERCENT AUTO 54.2 % (42.2-75.2); PLATELET COUNT,PLT 306 10^3/uL (150-450); RED BLOOD CELL COUNT 3.47 10^6/uL (4.6-6.2); WHITE BLOOD CELL COUNT,WBC 5.9 10^3/uL (5.0-10.0)
[2023-02-12] MEDS ORDERED: 50% Dextrose in Water 50 ML Syringe IVPUSH PRN ×2 (16:48→19:26)
[2023-02-12] MEDS ORDERED: Glucagon,Human Recombinant 1 MG Vial IM PRN ×2 (16:48→19:26)
[2023-02-12] MEDS: Sodium Chloride 0.9% 10 ML Syringe FLUSH PRN ×2 (16:54→20:48)
[2023-02-12 16:56] LABS: BASE EXCESS ARTERIAL -4 mmol/L ((-2)-(+3)); O2 DELIVERY DEVICE ROOM AIR; O2 SATURATION ARTERIAL 95 % (95-100); PCO2 ARTERIAL 48 mmHg (35-45); PH,ARTERIAL 7.29 (7.35-7.45); PO2 ARTERIAL 74 mmHg (70-100)
[2023-02-12 17:00] LABS: ALLEN TEST POSITIVE
[2023-02-12 17:06] LABS: LACTIC ACID 2.9 mmol/L (0.4-2.0)
[2023-02-12 17:09] LABS: ALANINE AMINOTRANSFERASE,ALT 30 U/L (16-63); ALKALINE PHOSPHATASE 78 U/L (46-116); ANION GAP 13.4 mEq/L (7-13); ASPARTATE AMNIOTRANSFERASE,AST 12 U/L (15-37); BILIRUBIN TOTAL 0.1 mg/dL (0.2-1.0); BLOOD UREA NITROGEN,BUN 16 mg/dL (7-18); BUN/CREATININE RATIO 19.5 (No establ ref range); CARBON DIOXIDE,CO2 22 mmol/L (21-32); CHLORIDE,CL 97 mmol/L (98-107); CREATININE 0.82 mg/dL (0.70-1.30); ETHANOL BLOOD MEDICAL 59 mg/dL (0); MAGNESIUM 1.7 mg/dL (1.8-2.4); PHOSPHORUS 2.2 mg/dL (2.6-4.7); POTASSIUM,K 3.4 mmol/L (3.5-5.1); PROTEIN TOTAL,TP 5.9 g/dL (6.4-8.2); SODIUM,NA 129 mmol/L (136-145); TSH ULTRASENSITIVE 3.16 uIU/mL (0.36-3.74)
[2023-02-12 17:11] LABS: HEMOGLOBIN A1C > 14.0 % (<5.7)
[2023-02-12 17:13] LABS: KETONES,BLOOD NEGATIVE
[2023-02-12 17:21] LABS: A/G RATIO 1.03; ESTIMATED GFR 109 mL/min (>=60); GLUCOSE RANDOM 809 mg/dL (70-99)
[2023-02-12] MEDS ORDERED: NS with KCl 40mEq 1,000 ML IV SCH (17:45)
[2023-02-12] MEDS ORDERED: Insulin Glarg,Human.Rec.Analog 100 Unit/ML SUBCUT ONE (19:26)
[2023-02-12] MEDS ORDERED: Acetaminophen 325 MG Tab PO PRN (19:36)
[2023-02-12] MEDS ORDERED: Acetaminophen/HYDROcodone 325-5 MG Tab PO PRN (19:36)
[2023-02-12] MEDS ORDERED: Albuterol/Ipratropium 3.0-0.5 MG/3 ML Neb Soln NEB PRN (19:37)
[2023-02-12] MEDS ORDERED: LORazepam 0.5 MG Tab PO PRN (19:37)
[2023-02-12] MEDS ORDERED: HYDROmorphone 0.5 MG/0.5 ML Syringe IVPUSH PRN (19:37)
[2023-02-12] MEDS ORDERED: Haloperidol Lactate 5 MG/ML SDV IM PRN (19:37)
[2023-02-12] MEDS ORDERED: Ondansetron 4 MG/2 ML SDV IVPUSH PRN (19:37)
[2023-02-12] MEDS ORDERED: LORazepam 2 MG/ML SDV IV PRN (19:37)
[2023-02-12] MEDS ORDERED: Ondansetron 4 MG Tab.DIS PO PRN (19:46)
[2023-02-12 19:50] LABS: ANION GAP 10.4 mEq/L (7-13); CALCIUM 8.2 mg/dL (8.5-10.1); CREATININE 0.63 mg/dL (0.70-1.30); EST CRCL DRUG DOSING (CG) 132.99 mL/min; POTASSIUM,K 3.4 mmol/L (3.5-5.1)
[2023-02-12] MEDS ORDERED: Magnesium Sulfate/Water 4 GM in Premix Bag 1 BAG IV ONE (20:06)
[2023-02-12] MEDS ORDERED: Phosphorus #1 250 MG Tab PO ONE (20:09)
[2023-02-12] MEDS ORDERED: Pantoprazole 40 MG Vial IVPUSH ONE (20:10)
[2023-02-12] MEDS ORDERED: Thiamine 200 MG/2 ML MDV IVPUSH ONE (20:11)
[2023-02-12] MEDS ORDERED: Lactated Ringers 1,000 ML IV SCH (20:15)
[2023-02-12] MEDS ORDERED: MVI, Adult with Vitamin K 10 ML, Folic Acid 1 MG, Thiamine 100 MG in Lactated Ringers 1... IV ONE ×4 (20:30)
[2023-02-12] MEDS: Simvastatin 10 MG Tab PO SCH (20:56)
[2023-02-12] MEDS: Temazepam 15 MG Cap PO PRN (21:44)
[2023-02-13] MEDS ORDERED: hydrALAZINE 20 MG/ML SDV IVPUSH PRN (00:37)
[2023-02-13] MEDS ORDERED: Metoprolol Tartrate 5 MG/5 ML SDV IVPUSH PRN (00:37)
[2023-02-13 03:54] LABS: APPEARANCE,URINE CLEAR (CLEAR); BILIRUBIN,URINE NEGATIVE (NEGATIVE); COLOR,URINE YELLOW (YELLOW); GLUCOSE,URINE 500 (NEGATIVE); KETONES,URINE NEGATIVE (NEGATIVE); LEUKOCYTE ESTERASE,URINE NEGATIVE (NEGATIVE); NITRITE,URINE NEGATIVE (NEGATIVE); OCCULT BLOOD,URINE TRACE-INTACT (NEGATIVE); PH,URINE 5.5 (5.0-9.0); PROTEIN,URINE NEGATIVE (NEGATIVE); UROBILINOGEN,URINE 0.2 mg/dL (0.2-1.0)
[2023-02-13 03:57] LABS: AMPHETAMINES,URINE NEGATIVE (NEGATIVE); BARBITURATES,URINE NEGATIVE (NEGATIVE); BENZODIAZEPINE,URINE POSITIVE (NEGATIVE); MDMA (ECSTASY), URINE NEGATIVE (NEGATIVE); METHADONE,URINE NEGATIVE (NEGATIVE); METHAMPHETAMINES,URINE NEGATIVE (NEGATIVE); OPIATES,URINE NEGATIVE (NEGATIVE); OXYCODONE,URINE NEGATIVE (NEGATIVE); PHENCYCLIDINE,URINE NEGATIVE (NEGATIVE); TCA,URINE NEGATIVE (NEGATIVE)
[2023-02-13 05:23] LABS: BASOPHILS PERCENT AUTO 0.2 % (0.0-1.0); EOSINOPHILS PERCENT AUTO 3.7 % (1.0-3.0); HEMATOCRIT 31.8 % (40.0-54.0); HEMOGLOBIN 10.8 g/dL (14.0-18.0); LYMPHOCYTES PERCENT AUTO 44.8 % (20.5-50.1); MEAN CORPUSCULAR HEMOGLOBIN 29.6 pg (27.0-34.0); MEAN CORPUSCULAR VOLUME 87.1 fL (80-100); MONOCYTES PERCENT AUTO 7.1 % (2-8); NEUTROPHILS PERCENT AUTO 44.2 % (42.2-75.2); PLATELET COUNT,PLT 316 10^3/uL (150-450); RED BLOOD CELL COUNT 3.65 10^6/uL (4.6-6.2); WHITE BLOOD CELL COUNT,WBC 9.2 10^3/uL (5.0-10.0)
[2023-02-13 05:47] LABS: ALBUMIN 2.6 g/dL (3.4-5.0); ANION GAP 8.8 mEq/L (7-13); BILIRUBIN TOTAL 0.3 mg/dL (0.2-1.0); BUN/CREATININE RATIO 22.8 (No establ ref range); CALCIUM 7.9 mg/dL (8.5-10.1); CREATININE 0.57 mg/dL (0.70-1.30); EST CRCL DRUG DOSING (CG) 146.99 mL/min; MAGNESIUM 1.9 mg/dL (1.8-2.4); POTASSIUM,K 3.8 mmol/L (3.5-5.1); PROTEIN TOTAL,TP 5.4 g/dL (6.4-8.2)
[2023-02-13 05:53] LABS: A/G RATIO 0.93
[2023-02-13 06:03] LABS: BACTERIA,URINE FEW /HPF (0-FEW/HPF); EPITHELIAL CELLS,URINE RARE /HPF (NOT SEEN); RBC,URINE 0-5 /HPF (0-5)
[2023-02-13] MEDS ORDERED: Phosphorus #1 250 MG Tab PO ONE (08:00)
[2023-02-13] MEDS: Insulin Lispro 100 Units/ML 3 ML Vial SUBCUT SCH ×3 (08:08→17:09)
[2023-02-13] MEDS: Thiamine 100 MG Tab PO SCH (08:09)
[2023-02-13] MEDS: Multivitamin Tab PO SCH (08:09)
[2023-02-13] MEDS: Famotidine 20 MG Tab PO SCH ×2 (08:10→21:01)
[2023-02-13] MEDS: Folic Acid 1 MG Tab PO SCH (08:10)
[2023-02-13] MEDS: cloNIDine 0.1 MG Tab PO PRN ×2 (08:10→11:50)
[2023-02-13] MEDS: Insulin Glarg,Human.Rec.Analog 100 Unit/ML SUBCUT SCH ×2 (08:16→21:02)
[2023-02-13] MEDS ORDERED: Lisinopril 20 MG Tab PO ONE ×2 (09:00→09:15)
[2023-02-13] MEDS ORDERED: Iopamidol 612 MG/ML 100 ML Bottle IVPUSH ONE (09:00)
[2023-02-13] MEDS ORDERED: Lisinopril 20 MG Tab PO SCH (09:00)
[2023-02-13] MEDS: Temazepam 15 MG Cap PO PRN (21:00)
[2023-02-13] MEDS ORDERED: Gabapentin 300 MG Cap PO SCH (21:00)
[2023-02-13] MEDS: Simvastatin 10 MG Tab PO SCH (21:01)
[2023-02-14 07:05] LABS: BASOPHILS PERCENT AUTO 0.5 % (0.0-1.0); EOSINOPHILS PERCENT AUTO 5.1 % (1.0-3.0); HEMATOCRIT 32.6 % (40.0-54.0); HEMOGLOBIN 11.1 g/dL (14.0-18.0); LYMPHOCYTES PERCENT AUTO 46.7 % (20.5-50.1); MEAN CORPUSCULAR HEMOGLOBIN 29.4 pg (27.0-34.0); MEAN CORPUSCULAR VOLUME 86.2 fL (80-100); MONOCYTES PERCENT AUTO 6.5 % (2-8); NEUTROPHILS PERCENT AUTO 41.2 % (42.2-75.2); PLATELET COUNT,PLT 293 10^3/uL (150-450); RED BLOOD CELL COUNT 3.78 10^6/uL (4.6-6.2); WHITE BLOOD CELL COUNT,WBC 6.6 10^3/uL (5.0-10.0)
[2023-02-14 07:26] LABS: ALBUMIN 2.6 g/dL (3.4-5.0); ANION GAP 6.5 mEq/L (7-13); BILIRUBIN TOTAL 0.3 mg/dL (0.2-1.0); BUN/CREATININE RATIO 25.5 (No establ ref range); CALCIUM 8.2 mg/dL (8.5-10.1); CREATININE 0.47 mg/dL (0.70-1.30); EST CRCL DRUG DOSING (CG) 178.26 mL/min; POTASSIUM,K 3.5 mmol/L (3.5-5.1); PROTEIN TOTAL,TP 5.5 g/dL (6.4-8.2)
[2023-02-14 07:32] LABS: A/G RATIO 0.9
[2023-02-14] MEDS: Folic Acid 1 MG Tab PO SCH (08:13)
[2023-02-14] MEDS: Famotidine 20 MG Tab PO SCH (08:13)
[2023-02-14] MEDS: Multivitamin Tab PO SCH (08:13)
[2023-02-14] MEDS: Thiamine 100 MG Tab PO SCH (08:13)
[2023-02-14] MEDS: Insulin Glarg,Human.Rec.Analog 100 Unit/ML SUBCUT SCH (08:14)
[2023-02-14] MEDS: Insulin Lispro 100 Units/ML 3 ML Vial SUBCUT SCH ×2 (08:14→11:58)
[2023-02-14] MEDS ORDERED: Lisinopril 20 MG Tab PO SCH (09:00)
[2023-02-14] MEDS: cloNIDine 0.1 MG Tab PO PRN (10:20)
[2023-02-14 15:07] VITALS: BP 146/88; PULSE 94
== END 2023-02-14 15:00 | disposition home or self-care (01) ==
LOC: DL.ED 16:04 → INTOOBSV 17:40 → DL.MS 17:40
PROVIDERS: ADMIT Internal Medicine; ATTEND Internal Medicine
DX: E11.00 Type 2 diabetes mellitus with hyperosmolarity without nonketotic hyperglycemic-hyperosmolar coma (NKHHC) (principal); E11.10 Type 2 diabetes mellitus with ketoacidosis without coma; K29.20 Alcoholic gastritis without bleeding; D64.9 Anemia, unspecified; E87.6 Hypokalemia; E87.8 Other disorders of electrolyte and fluid balance, not elsewhere classified; E83.39 Other disorders of phosphorus metabolism; E83.42 Hypomagnesemia; F10.129 Alcohol abuse with intoxication, unspecified; R00.0 Tachycardia, unspecified; E43 Unspecified severe protein-calorie malnutrition; R63.4 Abnormal weight loss; F12.10 Cannabis abuse, uncomplicated; E11.42 Type 2 diabetes mellitus with diabetic polyneuropathy; I10 Essential (primary) hypertension; E78.5 Hyperlipidemia, unspecified; I25.10 Atherosclerotic heart disease of native coronary artery without angina pectoris; M16.0 Bilateral primary osteoarthritis of hip; Z79.82 Long term (current) use of aspirin; Z79.899 Other long term (current) drug therapy; Z87.891 Personal history of nicotine dependence; Y90.2 Blood alcohol level of 40-59 mg/100 ml; Z91.199 Patient's noncompliance with other medical treatment and regimen due to unspecified reason; Z79.84 Long term (current) use of oral hypoglycemic drugs
CPT/HCPCS: 36415; 36600; 71045; 74177; 80048; 80053; 80305; 80307; 81001; 82009; 82803; 82947; 83036; 83605; 83735; 84100; 84443; 84484; 85025; 93005; 96361; 96365; 96366; 96367; 96368; 96375; 99285; A9270; C9113; G0378; J1815; J3411; J3475; J3480; J7030; J7120; Q9967; 93010; 96360; J3490

== ENCOUNTER 2023-03-05 06:23 | Emergency (ER) | payer MEDICAID ==
[2023-03-05] MEDS ORDERED: Sodium Chloride 0.9% 10 ML Syringe FLUSH PRN (07:32)
[2023-03-05 07:34] LABS: BASOPHILS PERCENT AUTO 0.5 % (0.0-1.0); EOSINOPHILS PERCENT AUTO 1.8 % (1.0-3.0); HEMATOCRIT 33.8 % (40.0-54.0); LYMPHOCYTES PERCENT AUTO 35.1 % (20.5-50.1); MEAN CORPUSCULAR HEMOGLOBIN 29.5 pg (27.0-34.0); MEAN CORPUSCULAR HGB CONC 35.5 g/dL (33.0-35.0); MONOCYTES PERCENT AUTO 6.7 % (2-8); NEUTROPHILS PERCENT AUTO 55.9 % (42.2-75.2); PLATELET COUNT,PLT 396 10^3/uL (150-450); RED BLOOD CELL COUNT 4.07 10^6/uL (4.6-6.2); WHITE BLOOD CELL COUNT,WBC 7.6 10^3/uL (5.0-10.0)
[2023-03-05] MEDS: Morphine 2 MG/ML SYRINGE IM ONE (07:37)
[2023-03-05 07:56] LABS: ALBUMIN 3.3 g/dL (3.4-5.0); BILIRUBIN TOTAL 0.6 mg/dL (0.2-1.0); BUN/CREATININE RATIO 23.8 (No establ ref range); CALCIUM 8.2 mg/dL (8.5-10.1); CREATININE 0.63 mg/dL (0.70-1.30); EST CRCL DRUG DOSING (CG) 120.97 mL/min; PROTEIN TOTAL,TP 6.9 g/dL (6.4-8.2)
[2023-03-05 08:05] LABS: ANION GAP 8.2 mEq/L (7-13); POTASSIUM,K 3.2 mmol/L (3.5-5.1)
[2023-03-05 08:07] LABS: A/G RATIO 0.92
[2023-03-05] MEDS: Iopamidol 612 MG/ML 100 ML Bottle IVPUSH ONE (08:26)
[2023-03-05] MEDS ORDERED: 50% Dextrose in Water 50 ML Syringe IVPUSH PRN (08:32)
[2023-03-05] MEDS ORDERED: Glucagon,Human Recombinant 1 MG Vial IM PRN (08:32)
[2023-03-05] MEDS: Sodium Chloride 0.9% 250 ML IV STA (08:39)
[2023-03-05] MEDS: Insulin Regular, Human 100 Units/ML 3 ML Vial IV ONE (08:43)
[2023-03-05 08:45] VITALS: PULSE 102
[2023-03-05 09:25] LABS: APPEARANCE,URINE CLEAR (CLEAR); BILIRUBIN,URINE NEGATIVE (NEGATIVE); COLOR,URINE YELLOW (YELLOW); GLUCOSE,URINE 250 (NEGATIVE); KETONES,URINE NEGATIVE (NEGATIVE); LEUKOCYTE ESTERASE,URINE NEGATIVE (NEGATIVE); NITRITE,URINE NEGATIVE (NEGATIVE); OCCULT BLOOD,URINE NEGATIVE (NEGATIVE); PROTEIN,URINE NEGATIVE (NEGATIVE)
[2023-03-05 09:51] VITALS: BP 130/96
== END 2023-03-05 10:07 | disposition home or self-care (01) ==
LOC: DL.ED 06:23
DX: E11.40 Type 2 diabetes mellitus with diabetic neuropathy, unspecified (principal); E11.65 Type 2 diabetes mellitus with hyperglycemia; E78.00 Pure hypercholesterolemia, unspecified; I10 Essential (primary) hypertension; Z79.4 Long term (current) use of insulin; Z79.82 Long term (current) use of aspirin; Z79.899 Other long term (current) drug therapy
CPT/HCPCS: 36415; 73562; 74177; 80053; 81003; 85025; 96360; 96372; 99285; J1815; J2270; J7050; Q9967

== ENCOUNTER 2023-03-06 16:37 | Emergency (ER) | payer MEDICAID ==
[2023-03-06 15:27] LABS: BASOPHILS PERCENT AUTO 0.5 % (0.0-1.0); EOSINOPHILS PERCENT AUTO 2.7 % (1.0-3.0); HEMATOCRIT 34.1 % (40.0-54.0); HEMOGLOBIN 11.9 g/dL (14.0-18.0); LYMPHOCYTES PERCENT AUTO 34.1 % (20.5-50.1); MEAN CORPUSCULAR HEMOGLOBIN 29.6 pg (27.0-34.0); MEAN CORPUSCULAR HGB CONC 34.9 g/dL (33.0-35.0); MEAN CORPUSCULAR VOLUME 84.8 fL (80-100); MONOCYTES PERCENT AUTO 6.6 % (2-8); NEUTROPHILS PERCENT AUTO 56.1 % (42.2-75.2); PLATELET COUNT,PLT 417 10^3/uL (150-450); RED BLOOD CELL COUNT 4.02 10^6/uL (4.6-6.2); WHITE BLOOD CELL COUNT,WBC 8.3 10^3/uL (5.0-10.0)
[2023-03-06 15:32] VITALS: BP 91/65; PULSE 81
[2023-03-06 15:49] LABS: ALANINE AMINOTRANSFERASE,ALT 34 U/L (16-63); ALBUMIN 3.4 g/dL (3.4-5.0); ALKALINE PHOSPHATASE 89 U/L (46-116); ANION GAP 9.1 mEq/L (7-13); ASPARTATE AMNIOTRANSFERASE,AST 18 U/L (15-37); BILIRUBIN TOTAL 0.5 mg/dL (0.2-1.0); BLOOD UREA NITROGEN,BUN 17 mg/dL (7-18); BUN/CREATININE RATIO 19.5 (No establ ref range); CALCIUM 8.7 mg/dL (8.5-10.1); CARBON DIOXIDE,CO2 30 mmol/L (21-32); CHLORIDE,CL 96 mmol/L (98-107); CREATININE 0.87 mg/dL (0.70-1.30); GLUCOSE RANDOM 250 mg/dL (70-99); MAGNESIUM 1.9 mg/dL (1.8-2.4); POTASSIUM,K 4.1 mmol/L (3.5-5.1); PROTEIN TOTAL,TP 6.9 g/dL (6.4-8.2); SODIUM,NA 131 mmol/L (136-145)
[2023-03-06 15:52] LABS: LACTIC ACID 0.9 mmol/L (0.4-2.0)
[2023-03-06 15:56] LABS: C-REACTIVE PROTEIN < 0.2 mg/dL (0.0-0.9); ESTIMATED GFR 107 mL/min (>=60); ETHANOL BLOOD MEDICAL < 3 mg/dL (0)
[2023-03-06 16:07] LABS: APPEARANCE,URINE CLEAR (CLEAR); BILIRUBIN,URINE NEGATIVE (NEGATIVE); COLOR,URINE YELLOW (YELLOW); GLUCOSE,URINE NEGATIVE (NEGATIVE); KETONES,URINE NEGATIVE (NEGATIVE); LEUKOCYTE ESTERASE,URINE NEGATIVE (NEGATIVE); NITRITE,URINE NEGATIVE (NEGATIVE); OCCULT BLOOD,URINE NEGATIVE (NEGATIVE); PROTEIN,URINE NEGATIVE (NEGATIVE); UROBILINOGEN,URINE 0.2 mg/dL (0.2-1.0)
[2023-03-06 16:11] LABS: BARBITURATES,URINE NEGATIVE (NEGATIVE); BENZODIAZEPINE,URINE NEGATIVE (NEGATIVE); MDMA (ECSTASY), URINE NEGATIVE (NEGATIVE); METHADONE,URINE NEGATIVE (NEGATIVE); METHAMPHETAMINES,URINE NEGATIVE (NEGATIVE); OPIATES,URINE NEGATIVE (NEGATIVE); TCA,URINE NEGATIVE (NEGATIVE)
[2023-03-06 16:12] LABS: AMPHETAMINES,URINE NEGATIVE (NEGATIVE); OXYCODONE,URINE NEGATIVE (NEGATIVE); PHENCYCLIDINE,URINE NEGATIVE (NEGATIVE)
[~2023-03-06 16:37] MED LIST: Sodium Chloride 0.9% 1,000 ML IV ONE; Sodium Chloride 0.9% 10 ML Syringe FLUSH PRN
== END 2023-03-06 17:14 | disposition home or self-care (01) ==
LOC: DL.ED 16:37
DX: N31.9 Neuromuscular dysfunction of bladder, unspecified (principal); E78.00 Pure hypercholesterolemia, unspecified; I10 Essential (primary) hypertension; E11.40 Type 2 diabetes mellitus with diabetic neuropathy, unspecified; Z79.82 Long term (current) use of aspirin; Z79.4 Long term (current) use of insulin; Z79.899 Other long term (current) drug therapy
CPT/HCPCS: 36415; 51702; 80053; 80305-QW; 80307; 81003; 83605; 83735; 85025; 86140; 87040; 87389; 93005; 96360; 99284-25; J3490; J7030

== ENCOUNTER 2023-03-10 05:15 | Emergency (ER) | payer MEDICAID ==
[2023-03-10 05:48] VITALS: BP 152/100; PULSE 73
[2023-03-10] MEDS ORDERED: Ketorolac 30 MG/ML SDV IM ONE (05:51)
[2023-03-10 06:09] LABS: BILIRUBIN,URINE NEGATIVE (NEGATIVE); COLOR,URINE YELLOW (YELLOW); GLUCOSE,URINE 500 (NEGATIVE); KETONES,URINE TRACE (NEGATIVE); LEUKOCYTE ESTERASE,URINE NEGATIVE (NEGATIVE); NITRITE,URINE NEGATIVE (NEGATIVE); OCCULT BLOOD,URINE LARGE (NEGATIVE); PH,URINE 6.5 (5.0-9.0); PROTEIN,URINE >=300 (NEGATIVE)
[2023-03-10 06:10] LABS: APPEARANCE,URINE SLIGHTLY CLOUDY (CLEAR)
[2023-03-10 06:27] LABS: EPITHELIAL CELLS,URINE RARE /HPF (NOT SEEN); RBC,URINE 40-50 /HPF (0-5); WBC,URINE NOT SEEN /HPF (0-5/HPF)
[2023-03-10 06:28] LABS: BACTERIA,URINE RARE /HPF (0-FEW/HPF)
== END 2023-03-10 06:20 | disposition home or self-care (01) ==
LOC: DL.ED 05:15
DX: T83.011D Breakdown (mechanical) of indwelling urethral catheter, subsequent encounter (principal); I10 Essential (primary) hypertension; E11.9 Type 2 diabetes mellitus without complications; Z79.4 Long term (current) use of insulin; Z79.82 Long term (current) use of aspirin; Z79.899 Other long term (current) drug therapy
CPT/HCPCS: 81001; 96372; 99283; 99284; J1885

== ENCOUNTER 2023-05-21 13:52 | Inpatient (IN) | payer MEDICAID ==
[2023-05-21 14:21] LABS: BASOPHILS PERCENT AUTO 0.3 % (0.0-1.0); HEMATOCRIT 28.3 % (40.0-54.0); HEMOGLOBIN 8.8 g/dL (14.0-18.0); MEAN CORPUSCULAR HEMOGLOBIN 28.5 pg (27.0-34.0); MEAN CORPUSCULAR HGB CONC 31.1 g/dL (33.0-35.0); MEAN CORPUSCULAR VOLUME 91.6 fL (80-100); MONOCYTES PERCENT AUTO 5.6 % (2-8); NEUTROPHILS PERCENT AUTO 72.1 % (42.2-75.2); PLATELET COUNT,PLT 567 10^3/uL (150-450); RED BLOOD CELL COUNT 3.09 10^6/uL (4.6-6.2); WHITE BLOOD CELL COUNT,WBC 11.6 10^3/uL (5.0-10.0)
[2023-05-21 14:33] LABS: EOSINOPHILS PERCENT MAN 2 % (1-3); LACTIC ACID 1.1 mmol/L (0.4-2.0); LYMPHOCYTES PERCENT MAN 22 % (20-50); MONOCYTES PERCENT MAN 5 % (2-8); SEG NEUTROPHILS PERCENT MAN 71 % (42-75)
[2023-05-21 14:40] LABS: ALANINE AMINOTRANSFERASE,ALT 43 U/L (16-63); ALBUMIN 2.3 g/dL (3.4-5.0); ALKALINE PHOSPHATASE 203 U/L (46-116); ANION GAP 9.1 mEq/L (7-13); ASPARTATE AMNIOTRANSFERASE,AST 22 U/L (15-37); B-TYPE NATRIURETIC PEPTIDE,BNP 43 pg/ml (0-100); BILIRUBIN TOTAL 0.3 mg/dL (0.2-1.0); BLOOD UREA NITROGEN,BUN 21 mg/dL (7-18); BUN/CREATININE RATIO 27.3 (No establ ref range); CALCIUM 8.8 mg/dL (8.5-10.1); CARBON DIOXIDE,CO2 31 mmol/L (21-32); CHLORIDE,CL 101 mmol/L (98-107); CREATINE KINASE,CK 48 U/L (39-308); CREATININE 0.77 mg/dL (0.70-1.30); EST CRCL DRUG DOSING (CG) 117.86 mL/min; GLUCOSE RANDOM 273 mg/dL (70-99); LIPASE 21 U/L (16-77); MAGNESIUM 1.9 mg/dL (1.8-2.4); POTASSIUM,K 4.1 mmol/L (3.5-5.1); PROTEIN TOTAL,TP 7.2 g/dL (6.4-8.2); SODIUM,NA 137 mmol/L (136-145); TSH ULTRASENSITIVE 2.91 uIU/mL (0.36-3.74)
[2023-05-21 14:41] LABS: A/G RATIO 0.47; ESTIMATED GFR 111 mL/min (>=60)
[2023-05-21] MEDS: Sodium Chloride 0.9% 10 ML Syringe FLUSH PRN (14:52)
[2023-05-21 14:54] LABS: APPEARANCE,URINE SLIGHTLY CLOUDY (CLEAR); BILIRUBIN,URINE NEGATIVE (NEGATIVE); COLOR,URINE YELLOW (YELLOW); GLUCOSE,URINE 500 (NEGATIVE); KETONES,URINE NEGATIVE (NEGATIVE); LEUKOCYTE ESTERASE,URINE SMALL (NEGATIVE); NITRITE,URINE NEGATIVE (NEGATIVE); OCCULT BLOOD,URINE MODERATE (NEGATIVE); PROTEIN,URINE 100 (NEGATIVE); UROBILINOGEN,URINE 0.2 mg/dL (0.2-1.0)
[2023-05-21] MEDS ORDERED: Iopamidol 612 MG/ML 100 ML Bottle IVPUSH ONE (14:56)
[2023-05-21 15:01] LABS: AMORPHOUS SEDIMENT,URINE FEW /HPF (NOT SEEN); BACTERIA,URINE FEW /HPF (0-FEW/HPF); EPITHELIAL CELLS,URINE FEW /HPF (NOT SEEN); MUCUS,URINE MODERATE /LPF (NOT SEEN); RBC,URINE 30-40 /HPF (0-5); WBC,URINE SEMI-PACKED /HPF (0-5/HPF)
[2023-05-21] MEDS ORDERED: Sodium Chloride 0.9% 1,000 ML IV ONE (15:48)
[2023-05-21] MEDS ORDERED: Ondansetron 4 MG Tab.DIS PO PRN ×2 (17:56→18:52)
[2023-05-21] MEDS ORDERED: Glucagon,Human Recombinant 1 MG Vial IM PRN (18:05)
[2023-05-21] MEDS ORDERED: Albuterol 0.083% 2.5 MG/3 ML Neb Soln NEB PRN (18:05)
[2023-05-21] MEDS ORDERED: 50% Dextrose in Water 50 ML Syringe IVPUSH PRN (18:05)
[2023-05-21] MEDS ORDERED: Sodium Chloride 0.9% 1,000 ML IV SCH (18:15)
[2023-05-21] MEDS ORDERED: Magnesium Oxide 400 MG Tab PO SCH (18:15)
[2023-05-21] MEDS ORDERED: Insulin Lispro 100 Units/ML 3 ML Vial SUBCUT SCH (18:15)
[2023-05-21] MEDS: Pantoprazole 40 MG Tab.CR PO SCH (18:28)
[2023-05-21] MEDS: oxyCODONE 5 MG Tab PO PRN (18:35)
[2023-05-21] MEDS ORDERED: hydrOXYzine HCl 25 MG Tab PO PRN (18:52)
[2023-05-21] MEDS ORDERED: Insulin Glarg,Human.Rec.Analog 100 Unit/ML 10 ML Vial SUBCUT SCH (21:00)
[2023-05-21] MEDS: Celecoxib 100 MG Cap PO SCH (21:01)
[2023-05-21] MEDS: Mirtazapine 15 MG Tab PO SCH (21:01)
[2023-05-21] MEDS: Tamsulosin 0.4 MG Cap.ER PO SCH (21:01)
[2023-05-21] MEDS: OLANZapine 5 MG Tab PO SCH (21:01)
[2023-05-21] MEDS: Gabapentin 300 MG Cap PO SCH (21:01)
[2023-05-21] MEDS: Loperamide 2 MG Cap PO PRN (21:13)
[2023-05-22] MEDS: Acetaminophen 325 MG Tab PO PRN ×2 (04:16→23:29)
[2023-05-22] MEDS: Pantoprazole 40 MG Tab.CR PO SCH ×2 (05:59→16:30)
[2023-05-22] MEDS ORDERED: Omeprazole 20 MG Cap.CR PO SCH (06:00)
[2023-05-22] MEDS: oxyCODONE 5 MG Tab PO PRN ×3 (06:02→20:19)
[2023-05-22 06:20] LABS: BASOPHILS PERCENT AUTO 0.7 % (0.0-1.0); EOSINOPHILS PERCENT AUTO 2.7 % (1.0-3.0); HEMATOCRIT 27.8 % (40.0-54.0); HEMOGLOBIN 8.5 g/dL (14.0-18.0); LYMPHOCYTES PERCENT AUTO 27.3 % (20.5-50.1); MEAN CORPUSCULAR HEMOGLOBIN 28.1 pg (27.0-34.0); MEAN CORPUSCULAR HGB CONC 30.6 g/dL (33.0-35.0); MEAN CORPUSCULAR VOLUME 91.7 fL (80-100); MONOCYTES PERCENT AUTO 4.7 % (2-8); NEUTROPHILS PERCENT AUTO 64.6 % (42.2-75.2); PLATELET COUNT,PLT 554 10^3/uL (150-450); RED BLOOD CELL COUNT 3.03 10^6/uL (4.6-6.2)
[2023-05-22 06:39] LABS: ANION GAP 8.2 mEq/L (7-13); CALCIUM 8.4 mg/dL (8.5-10.1); CREATININE 0.75 mg/dL (0.70-1.30); EST CRCL DRUG DOSING (CG) 111.94 mL/min; POTASSIUM,K 3.2 mmol/L (3.5-5.1)
[2023-05-22] MEDS: Insulin Lispro 100 Units/ML 3 ML Vial SUBCUT SCH ×4 (08:48→17:25)
[2023-05-22] MEDS: Thiamine 100 MG Tab PO SCH (08:51)
[2023-05-22] MEDS: predniSONE 10 MG Tab PO SCH (08:51)
[2023-05-22] MEDS: Aspirin 81 MG Tab.EC PO SCH (08:52)
[2023-05-22] MEDS: Celecoxib 100 MG Cap PO SCH ×2 (08:52→20:21)
[2023-05-22] MEDS: Gabapentin 100 MG Cap PO SCH ×2 (08:52→13:50)
[2023-05-22] MEDS: Multivitamin Tab PO SCH (08:52)
[2023-05-22] MEDS: Lisinopril 20 MG Tab PO SCH (08:53)
[2023-05-22] MEDS: Folic Acid 1 MG Tab PO SCH (08:56)
[2023-05-22] MEDS ORDERED: Insulin Glarg,Human.Rec.Analog 100 Unit/ML 10 ML Vial SUBCUT SCH (09:00)
[2023-05-22] MEDS ORDERED: 50% Dextrose in Water 50 ML Syringe IVPUSH PRN ×3 (12:00→12:02)
[2023-05-22] MEDS ORDERED: Glucagon,Human Recombinant 1 MG Vial IM PRN ×3 (12:00→12:02)
[2023-05-22] MEDS ORDERED: Insulin Glarg,Human.Rec.Analog 100 Unit/ML 10 ML Vial SUBCUT ONE (12:02)
[2023-05-22] MEDS ORDERED: Potassium Chloride 10 MEQ Tab.ER PO ONE (12:34)
[2023-05-22] MEDS: Metoprolol Tartrate 50 MG Tab PO SCH ×2 (13:03→20:21)
[2023-05-22] MEDS: Gabapentin 300 MG Cap PO SCH (20:20)
[2023-05-22] MEDS: Tamsulosin 0.4 MG Cap.ER PO SCH (20:20)
[2023-05-22] MEDS: OLANZapine 5 MG Tab PO SCH (20:21)
[2023-05-22] MEDS: Mirtazapine 15 MG Tab PO SCH (20:21)
[2023-05-22] MEDS: Insulin Glarg,Human.Rec.Analog 100 Unit/ML 10 ML Vial SUBCUT SCH (21:56)
[2023-05-22] MEDS: Melatonin 3 MG Tab PO PRN (21:58)
[2023-05-22] MEDS: Sodium Chloride 0.9% 10 ML Syringe FLUSH PRN (21:59)
[2023-05-22] MEDS: cefTRIAXone 2 GM Vial IVPUSH SCH (22:00)
[2023-05-23] MEDS: oxyCODONE 5 MG Tab PO PRN ×4 (00:09→20:07)
[2023-05-23] MEDS: Pantoprazole 40 MG Tab.CR PO SCH ×2 (05:56→16:53)
[2023-05-23] MEDS: Acetaminophen 325 MG Tab PO PRN ×2 (06:03→20:07)
[2023-05-23] MEDS: Insulin Lispro 100 Units/ML 3 ML Vial SUBCUT SCH ×3 (08:11→17:12)
[2023-05-23] MEDS: Folic Acid 1 MG Tab PO SCH (08:14)
[2023-05-23] MEDS: Metoprolol Tartrate 50 MG Tab PO SCH ×2 (08:14→20:06)
[2023-05-23] MEDS: Multivitamin Tab PO SCH (08:14)
[2023-05-23] MEDS: Celecoxib 100 MG Cap PO SCH ×2 (08:14→20:06)
[2023-05-23] MEDS: predniSONE 10 MG Tab PO SCH (08:14)
[2023-05-23] MEDS: Aspirin 81 MG Tab.EC PO SCH (08:14)
[2023-05-23] MEDS: Lisinopril 20 MG Tab PO SCH (08:14)
[2023-05-23] MEDS: Gabapentin 100 MG Cap PO SCH ×2 (08:14→14:11)
[2023-05-23] MEDS: Thiamine 100 MG Tab PO SCH (08:14)
[2023-05-23] MEDS: Insulin Glarg,Human.Rec.Analog 100 Unit/ML 10 ML Vial SUBCUT SCH ×2 (08:17→20:08)
[2023-05-23] MEDS: Gabapentin 300 MG Cap PO SCH (20:06)
[2023-05-23] MEDS: Mirtazapine 15 MG Tab PO SCH (20:06)
[2023-05-23] MEDS: OLANZapine 5 MG Tab PO SCH (20:07)
[2023-05-23] MEDS: Tamsulosin 0.4 MG Cap.ER PO SCH (20:07)
[2023-05-23] MEDS: cefTRIAXone 2 GM Vial IVPUSH SCH (20:13)
[2023-05-24] MEDS: oxyCODONE 5 MG Tab PO PRN ×2 (00:31→09:10)
[2023-05-24] MEDS: Acetaminophen 325 MG Tab PO PRN ×3 (00:31→13:57)
[2023-05-24] MEDS: Pantoprazole 40 MG Tab.CR PO SCH ×2 (05:02→16:12)
[2023-05-24] MEDS: Insulin Lispro 100 Units/ML 3 ML Vial SUBCUT SCH ×3 (08:13→16:59)
[2023-05-24] MEDS: Sodium Chloride 0.9% 10 ML Syringe FLUSH PRN (08:16)
[2023-05-24] MEDS: Celecoxib 100 MG Cap PO SCH ×2 (08:17→20:30)
[2023-05-24] MEDS: Folic Acid 1 MG Tab PO SCH (08:17)
[2023-05-24] MEDS: Multivitamin Tab PO SCH (08:17)
[2023-05-24] MEDS: Aspirin 81 MG Tab.EC PO SCH (08:18)
[2023-05-24] MEDS: predniSONE 10 MG Tab PO SCH (08:18)
[2023-05-24] MEDS: Lisinopril 20 MG Tab PO SCH (08:18)
[2023-05-24] MEDS: Metoprolol Tartrate 50 MG Tab PO SCH ×2 (08:18→20:44)
[2023-05-24] MEDS: Gabapentin 100 MG Cap PO SCH ×2 (08:18→13:58)
[2023-05-24] MEDS: Thiamine 100 MG Tab PO SCH (08:18)
[2023-05-24] MEDS: Insulin Glarg,Human.Rec.Analog 100 Unit/ML 10 ML Vial SUBCUT SCH ×2 (09:11→20:32)
[2023-05-24] MEDS: Levofloxacin 500 MG Tab PO SCH (10:56)
[2023-05-24] MEDS: Mirtazapine 15 MG Tab PO SCH (20:48)
[2023-05-24] MEDS: OLANZapine 5 MG Tab PO SCH (20:48)
[2023-05-24] MEDS: Gabapentin 300 MG Cap PO SCH (20:48)
[2023-05-24] MEDS: Tamsulosin 0.4 MG Cap.ER PO SCH (20:48)
[2023-05-24] MEDS: Melatonin 3 MG Tab PO PRN (23:14)
[2023-05-25] MEDS: Pantoprazole 40 MG Tab.CR PO SCH ×2 (06:38→16:26)
[2023-05-25] MEDS: oxyCODONE 5 MG Tab PO PRN (06:39)
[2023-05-25] MEDS: Acetaminophen 325 MG Tab PO PRN ×2 (06:40→14:10)
[2023-05-25] MEDS: Insulin Lispro 100 Units/ML 3 ML Vial SUBCUT SCH ×3 (08:36→16:27)
[2023-05-25] MEDS: Thiamine 100 MG Tab PO SCH (08:40)
[2023-05-25] MEDS: Multivitamin Tab PO SCH (08:40)
[2023-05-25] MEDS: Gabapentin 100 MG Cap PO SCH ×2 (08:40→14:11)
[2023-05-25] MEDS: Lisinopril 20 MG Tab PO SCH (08:42)
[2023-05-25] MEDS: predniSONE 10 MG Tab PO SCH (08:42)
[2023-05-25] MEDS: Celecoxib 100 MG Cap PO SCH ×2 (08:42→21:00)
[2023-05-25] MEDS: Metoprolol Tartrate 50 MG Tab PO SCH ×2 (08:42→21:00)
[2023-05-25] MEDS: Folic Acid 1 MG Tab PO SCH (08:43)
[2023-05-25] MEDS: Aspirin 81 MG Tab.EC PO SCH (08:43)
[2023-05-25] MEDS: Insulin Glarg,Human.Rec.Analog 100 Unit/ML 10 ML Vial SUBCUT SCH ×2 (09:47→20:58)
[2023-05-25] MEDS: Levofloxacin 500 MG Tab PO SCH (09:51)
[2023-05-25] MEDS: Tamsulosin 0.4 MG Cap.ER PO SCH (21:00)
[2023-05-25] MEDS: OLANZapine 5 MG Tab PO SCH (21:00)
[2023-05-25] MEDS: Gabapentin 300 MG Cap PO SCH (21:00)
[2023-05-25] MEDS: Mirtazapine 15 MG Tab PO SCH (21:01)
[2023-05-25] MEDS: Melatonin 3 MG Tab PO PRN (21:01)
[2023-05-25] MEDS: Sodium Chloride 0.9% 10 ML Syringe FLUSH PRN (21:01)
[2023-05-25] MEDS: traZODone 50 MG Tab PO PRN (22:13)
[2023-05-26] MEDS: oxyCODONE 5 MG Tab PO PRN ×2 (04:29→16:47)
[2023-05-26] MEDS: Pantoprazole 40 MG Tab.CR PO SCH ×3 (04:30→16:47)
[2023-05-26 05:46] LABS: QUANTIFERON TB1 AG VALUE 0.04 IU/mL; QUANTIFERON TB2 AG VALUE 0.08 IU/mL
[2023-05-26] MEDS: Insulin Lispro 100 Units/ML 3 ML Vial SUBCUT SCH ×3 (08:46→16:48)
[2023-05-26] MEDS: Folic Acid 1 MG Tab PO SCH (08:50)
[2023-05-26] MEDS: Celecoxib 100 MG Cap PO SCH ×2 (08:50→21:26)
[2023-05-26] MEDS: Acetaminophen 325 MG Tab PO PRN ×2 (08:50→13:42)
[2023-05-26] MEDS: Metoprolol Tartrate 50 MG Tab PO SCH ×2 (08:51→21:27)
[2023-05-26] MEDS: Thiamine 100 MG Tab PO SCH (08:51)
[2023-05-26] MEDS: Aspirin 81 MG Tab.EC PO SCH (08:51)
[2023-05-26] MEDS: Multivitamin Tab PO SCH (08:51)
[2023-05-26] MEDS: Gabapentin 100 MG Cap PO SCH ×2 (08:52→13:42)
[2023-05-26] MEDS: Lisinopril 20 MG Tab PO SCH (08:52)
[2023-05-26] MEDS: predniSONE 10 MG Tab PO SCH (08:52)
[2023-05-26] MEDS: Levofloxacin 500 MG Tab PO SCH (10:21)
[2023-05-26] MEDS: Insulin Glarg,Human.Rec.Analog 100 Unit/ML 10 ML Vial SUBCUT SCH ×2 (10:21→21:27)
[2023-05-26] MEDS: Loperamide 2 MG Cap PO PRN (17:47)
[2023-05-26] MEDS: Mirtazapine 15 MG Tab PO SCH (21:26)
[2023-05-26] MEDS: OLANZapine 5 MG Tab PO SCH (21:26)
[2023-05-26] MEDS: Gabapentin 300 MG Cap PO SCH (21:26)
[2023-05-26] MEDS: Tamsulosin 0.4 MG Cap.ER PO SCH (21:26)
[2023-05-26] MEDS: traZODone 50 MG Tab PO PRN (21:32)
[2023-05-27] MEDS: Levofloxacin 500 MG Tab PO SCH ×2 (08:20→08:46)
[2023-05-27] MEDS: Multivitamin Tab PO SCH (08:20)
[2023-05-27] MEDS: Thiamine 100 MG Tab PO SCH (08:20)
[2023-05-27] MEDS: Pantoprazole 40 MG Tab.CR PO SCH ×2 (08:20→17:06)
[2023-05-27] MEDS: Folic Acid 1 MG Tab PO SCH (08:20)
[2023-05-27] MEDS: Gabapentin 100 MG Cap PO SCH ×2 (08:20→13:38)
[2023-05-27] MEDS: Metoprolol Tartrate 50 MG Tab PO SCH ×2 (08:21→20:47)
[2023-05-27] MEDS: Insulin Lispro 100 Units/ML 3 ML Vial SUBCUT SCH ×3 (08:21→17:06)
[2023-05-27] MEDS: Aspirin 81 MG Tab.EC PO SCH (08:21)
[2023-05-27] MEDS: Lisinopril 20 MG Tab PO SCH (08:21)
[2023-05-27] MEDS: predniSONE 10 MG Tab PO SCH (08:21)
[2023-05-27] MEDS: Celecoxib 100 MG Cap PO SCH ×2 (08:21→20:47)
[2023-05-27] MEDS: Insulin Glarg,Human.Rec.Analog 100 Unit/ML 10 ML Vial SUBCUT SCH ×2 (08:22→20:50)
[2023-05-27] MEDS: Acetaminophen 325 MG Tab PO PRN (08:30)
[2023-05-27] MEDS: oxyCODONE 5 MG Tab PO PRN ×3 (08:30→20:47)
[2023-05-27] MEDS: Tamsulosin 0.4 MG Cap.ER PO SCH (20:46)
[2023-05-27] MEDS: Mirtazapine 15 MG Tab PO SCH (20:46)
[2023-05-27] MEDS: Gabapentin 300 MG Cap PO SCH (20:47)
[2023-05-27] MEDS: OLANZapine 5 MG Tab PO SCH (20:47)
[2023-05-28] MEDS: traZODone 50 MG Tab PO PRN (01:24)
[2023-05-28] MEDS: oxyCODONE 5 MG Tab PO PRN (04:24)
[2023-05-28] MEDS: Pantoprazole 40 MG Tab.CR PO SCH (05:19)
[2023-05-28] MEDS: Insulin Lispro 100 Units/ML 3 ML Vial SUBCUT SCH (08:12)
[2023-05-28] MEDS: Thiamine 100 MG Tab PO SCH (08:16)
[2023-05-28] MEDS: Lisinopril 20 MG Tab PO SCH (08:16)
[2023-05-28] MEDS: Folic Acid 1 MG Tab PO SCH (08:16)
[2023-05-28] MEDS: Gabapentin 100 MG Cap PO SCH (08:16)
[2023-05-28] MEDS: Celecoxib 100 MG Cap PO SCH (08:16)
[2023-05-28] MEDS: Aspirin 81 MG Tab.EC PO SCH (08:16)
[2023-05-28] MEDS: Multivitamin Tab PO SCH (08:16)
[2023-05-28] MEDS: predniSONE 10 MG Tab PO SCH (08:16)
[2023-05-28] MEDS: Insulin Glarg,Human.Rec.Analog 100 Unit/ML 10 ML Vial SUBCUT SCH (08:20)
[2023-05-28] MEDS: Levofloxacin 500 MG Tab PO SCH (08:47)
[2023-05-28] MEDS: Metoprolol Tartrate 50 MG Tab PO SCH (08:47)
[2023-05-28 10:48] VITALS: BP 83/53; PULSE 82
== END 2023-05-28 10:50 | DRG 689 ==
LOC: DL.ED 13:52 → DL.MS 16:48
PROVIDERS: ADMIT Hospitalist; ATTEND Hospitalist
DX: N39.0 Urinary tract infection, site not specified (principal); E43 Unspecified severe protein-calorie malnutrition; R64 Cachexia; L97.421 Non-pressure chronic ulcer of left heel and midfoot limited to breakdown of skin; E11.621 Type 2 diabetes mellitus with foot ulcer; L98.411 Non-pressure chronic ulcer of buttock limited to breakdown of skin; R53.81 Other malaise; J44.9 Chronic obstructive pulmonary disease, unspecified; M19.90 Unspecified osteoarthritis, unspecified site; E11.40 Type 2 diabetes mellitus with diabetic neuropathy, unspecified; F32.A Depression, unspecified; F41.9 Anxiety disorder, unspecified; I10 Essential (primary) hypertension; E78.00 Pure hypercholesterolemia, unspecified; R91.8 Other nonspecific abnormal finding of lung field; R15.9 Full incontinence of feces; G47.00 Insomnia, unspecified; B96.89 Other specified bacterial agents as the cause of diseases classified elsewhere; Z87.442 Personal history of urinary calculi; Z98.890 Other specified postprocedural states; Z87.891 Personal history of nicotine dependence; Z97.8 Presence of other specified devices; Z79.4 Long term (current) use of insulin; Z79.82 Long term (current) use of aspirin; Z79.899 Other long term (current) drug therapy; Z68.20 Body mass index [BMI] 20.0-20.9, adult
CPT/HCPCS: 36415; 71045; 71260; 74177; 80053; 81001; 82009; 82550; 83605; 83690; 83735; 83880; 84145; 84443; 85025; 86480; 87040; 87086; 87088; 87186; 87493; 99285 ×2; J7030; Q9967; 80048; 82947; 97110-GO; 97161-GP; 97165-GO; 97530-GO; 99223; 99232; 99233; 99239; A9270-GY; J0696; J1815-GY; J3490; J7512; U0002

== ENCOUNTER 2023-06-12 16:14 | Emergency (ER) | payer MEDICAID ==
[2023-06-12 16:52] VITALS: BP 117/74; PULSE 103
== END 2023-06-12 16:55 | disposition left against medical advice (07) ==
LOC: DL.ED 16:14
DX: Z53.21 Procedure and treatment not carried out due to patient leaving prior to being seen by health care provider (principal)

== ENCOUNTER 2023-06-16 23:25 | Emergency (ER) | payer MEDICAID ==
[2023-06-16 23:34] VITALS: PULSE 115
[2023-06-17 01:56] LABS: METHAMPHETAMINES,URINE POSITIVE (NEGATIVE)
[2023-06-17 01:57] LABS: AMPHETAMINES,URINE POSITIVE (NEGATIVE); BARBITURATES,URINE NEGATIVE (NEGATIVE); BENZODIAZEPINE,URINE NEGATIVE (NEGATIVE); MDMA (ECSTASY), URINE NEGATIVE (NEGATIVE); METHADONE,URINE NEGATIVE (NEGATIVE); OPIATES,URINE NEGATIVE (NEGATIVE); OXYCODONE,URINE NEGATIVE (NEGATIVE); PHENCYCLIDINE,URINE NEGATIVE (NEGATIVE); TCA,URINE NEGATIVE (NEGATIVE)
[2023-06-17 01:58] LABS: APPEARANCE,URINE CLEAR (CLEAR); BILIRUBIN,URINE NEGATIVE (NEGATIVE); COLOR,URINE YELLOW (YELLOW); GLUCOSE,URINE 100 (NEGATIVE); KETONES,URINE NEGATIVE (NEGATIVE); LEUKOCYTE ESTERASE,URINE TRACE (NEGATIVE); NITRITE,URINE NEGATIVE (NEGATIVE); OCCULT BLOOD,URINE MODERATE (NEGATIVE); PROTEIN,URINE 30 (NEGATIVE); UROBILINOGEN,URINE 0.2 mg/dL (0.2-1.0)
[2023-06-17 02:05] LABS: RBC,URINE 20-30 /HPF (0-5)
[2023-06-17 02:06] LABS: EPITHELIAL CELLS,URINE RARE /HPF (NOT SEEN)
[2023-06-17 02:07] LABS: BACTERIA,URINE FEW /HPF (0-FEW/HPF)
[2023-06-17 02:57] VITALS: BP 138/101
== END 2023-06-17 02:45 | disposition home or self-care (01) ==
LOC: DL.ED 23:25
DX: T83.511A Infection and inflammatory reaction due to indwelling urethral catheter, initial encounter (principal); N39.0 Urinary tract infection, site not specified; T83.090A Other mechanical complication of cystostomy catheter, initial encounter; F15.929 Other stimulant use, unspecified with intoxication, unspecified; F12.90 Cannabis use, unspecified, uncomplicated; I10 Essential (primary) hypertension; J44.9 Chronic obstructive pulmonary disease, unspecified; K21.9 Gastro-esophageal reflux disease without esophagitis; E11.40 Type 2 diabetes mellitus with diabetic neuropathy, unspecified; Z79.4 Long term (current) use of insulin; Z79.899 Other long term (current) drug therapy
CPT/HCPCS: 51702; 80305-QW; 81001; 87086; 99284

== ENCOUNTER 2023-06-17 11:30 | Emergency (ER) | payer MEDICAID ==
[2023-06-17 12:03] VITALS: BP 120/73; PULSE 99
== END 2023-06-17 13:02 | disposition home or self-care (01) ==
LOC: DL.ED 11:30
DX: F15.23 Other stimulant dependence with withdrawal (principal); Z02.89 Encounter for other administrative examinations; K21.9 Gastro-esophageal reflux disease without esophagitis; I10 Essential (primary) hypertension; J44.9 Chronic obstructive pulmonary disease, unspecified; E10.9 Type 1 diabetes mellitus without complications; Z79.899 Other long term (current) drug therapy; Z79.4 Long term (current) use of insulin
CPT/HCPCS: 36415; 80307; 99283; 99284

== ENCOUNTER 2023-07-09 20:07 | Inpatient (IN) | payer MEDICAID ==
[2023-07-09] MEDS ORDERED: Lidocaine 2% Jelly 10 ML Urojet MUCMEM ONE (20:28)
[2023-07-09 21:00] LABS: BASOPHILS PERCENT AUTO 0.2 % (0.0-1.0); EOSINOPHILS PERCENT AUTO 0.7 % (1.0-3.0); HEMATOCRIT 40.2 % (40.0-54.0); HEMOGLOBIN 12.9 g/dL (14.0-18.0); LYMPHOCYTES PERCENT AUTO 9.4 % (20.5-50.1); MEAN CORPUSCULAR HEMOGLOBIN 27.3 pg (27.0-34.0); MEAN CORPUSCULAR HGB CONC 32.1 g/dL (33.0-35.0); MONOCYTES PERCENT AUTO 4.9 % (2-8); NEUTROPHILS PERCENT AUTO 84.8 % (42.2-75.2); PLATELET COUNT,PLT 481 10^3/uL (150-450); RED BLOOD CELL COUNT 4.73 10^6/uL (4.6-6.2); WHITE BLOOD CELL COUNT,WBC 19.8 10^3/uL (5.0-10.0)
[2023-07-09 21:11] LABS: ALANINE AMINOTRANSFERASE,ALT 17 U/L (16-63); ALBUMIN 2.5 g/dL (3.4-5.0); ALKALINE PHOSPHATASE 224 U/L (46-116); ANION GAP 14.5 mEq/L (7-13); ASPARTATE AMNIOTRANSFERASE,AST 9 U/L (15-37); BILIRUBIN TOTAL 0.3 mg/dL (0.2-1.0); BLOOD UREA NITROGEN,BUN 21 mg/dL (7-18); BUN/CREATININE RATIO 17.1 (No establ ref range); C-REACTIVE PROTEIN 16.18 ng/dL (<=0.30); CALCIUM 9.4 mg/dL (8.5-10.1); CARBON DIOXIDE,CO2 27 mmol/L (21-32); CHLORIDE,CL 97 mmol/L (98-107); CREATININE 1.23 mg/dL (0.70-1.30); GLUCOSE RANDOM 164 mg/dL (70-99); POTASSIUM,K 3.5 mmol/L (3.5-5.1); PROTEIN TOTAL,TP 8.7 g/dL (6.4-8.2); SODIUM,NA 135 mmol/L (136-145)
[2023-07-09 21:13] LABS: ESTIMATED GFR 73 mL/min (>=60); ETHANOL BLOOD MEDICAL < 3 mg/dL (0)
[2023-07-09 21:14] LABS: LACTIC ACID 1.2 mmol/L (0.4-2.0)
[2023-07-09 21:32] LABS: CORONAVIRUS COVID-19 NAA NEGATIVE (NEGATIVE); INFLUENZA A NAA NEGATIVE (NEGATIVE); INFLUENZA B NAA NEGATIVE (NEGATIVE); RESPIRATORY SYNCYTIAL VIR NAA NEGATIVE (NEGATIVE)
[2023-07-09 21:50] LABS: APPEARANCE,URINE CLOUDY (CLEAR); BILIRUBIN,URINE SMALL (NEGATIVE); COLOR,URINE YELLOW (YELLOW); GLUCOSE,URINE NEGATIVE (NEGATIVE); KETONES,URINE 40 (NEGATIVE); LEUKOCYTE ESTERASE,URINE SMALL (NEGATIVE); NITRITE,URINE POSITIVE (NEGATIVE); OCCULT BLOOD,URINE MODERATE (NEGATIVE); PROTEIN,URINE 100 (NEGATIVE); UROBILINOGEN,URINE 0.2 mg/dL (0.2-1.0)
[2023-07-09 21:52] LABS: AMPHETAMINES,URINE POSITIVE (NEGATIVE); BARBITURATES,URINE NEGATIVE (NEGATIVE); BENZODIAZEPINE,URINE NEGATIVE (NEGATIVE); MDMA (ECSTASY), URINE NEGATIVE (NEGATIVE); METHADONE,URINE NEGATIVE (NEGATIVE); METHAMPHETAMINES,URINE POSITIVE (NEGATIVE); OPIATES,URINE NEGATIVE (NEGATIVE); OXYCODONE,URINE NEGATIVE (NEGATIVE); PHENCYCLIDINE,URINE NEGATIVE (NEGATIVE); TCA,URINE NEGATIVE (NEGATIVE)
[2023-07-09] MEDS ORDERED: Sodium Chloride 0.9% 1,000 ML IV ONE (21:52)
[2023-07-09] MEDS ORDERED: cefTRIAXone 2 GM Vial IVPUSH ONE (21:52)
[2023-07-09 22:01] LABS: BACTERIA,URINE MODERATE /HPF (0-FEW/HPF); EPITHELIAL CELLS,URINE FEW /HPF (NOT SEEN); WBC,URINE >100 /HPF (0-5/HPF)
[2023-07-09] MEDS ORDERED: Naloxone 2 MG/2 ML Syringe IVPUSH PRN (23:47)
[2023-07-09] MEDS ORDERED: HYDROmorphone 0.5 MG/0.5 ML Syringe IVPUSH PRN (23:47)
[2023-07-09] MEDS ORDERED: Magnesium Hydroxide 400 MG/5 ML Susp 30 ML Cup PO PRN (23:47)
[2023-07-09] MEDS ORDERED: Sennosides/Docusate Sodium 50-8.6 MG Tab PO PRN (23:47)
[2023-07-09] MEDS ORDERED: Albuterol/Ipratropium 3.0-0.5 MG/3 ML Neb Soln NEB PRN (23:47)
[2023-07-09] MEDS ORDERED: Acetaminophen 325 MG Tab PO PRN (23:47)
[2023-07-09] MEDS ORDERED: Ondansetron 4 MG/2 ML SDV IVPUSH PRN (23:47)
[2023-07-09] MEDS ORDERED: Polyethylene Glycol 3350 Powder 17 GM Packet PO PRN (23:47)
[2023-07-09] MEDS ORDERED: hydrALAZINE 20 MG/ML SDV IVPUSH PRN (23:51)
[2023-07-09] MEDS ORDERED: Metoprolol Tartrate 5 MG/5 ML SDV IVPUSH PRN (23:51)
[2023-07-09] MEDS ORDERED: Phenazopyridine 95 MG Tab PO ONE (23:53)
[2023-07-09] MEDS ORDERED: Ertapenem 1 GM Vial IVPUSH ONE (23:58)
[2023-07-10] MEDS ORDERED: 50% Dextrose in Water 50 ML Syringe IVPUSH PRN
[2023-07-10] MEDS ORDERED: Glucagon,Human Recombinant 1 MG Vial IM PRN
[2023-07-10] MEDS ORDERED: Flumazenil 0.1 MG/ML 5 ML MDV IVPUSH PRN (00:46)
[2023-07-10] MEDS ORDERED: LORazepam 2 MG/ML SDV IVPUSH PRN ×2 (00:49→22:31)
[2023-07-10] MEDS: LORazepam 2 MG/ML SDV IVPUSH PRN ×2 (01:01→22:39)
[2023-07-10 06:27] LABS: HEMATOCRIT 32.9 % (40.0-54.0); HEMOGLOBIN 10.6 g/dL (14.0-18.0); MEAN CORPUSCULAR HEMOGLOBIN 27.5 pg (27.0-34.0); MEAN CORPUSCULAR HGB CONC 32.2 g/dL (33.0-35.0); MEAN CORPUSCULAR VOLUME 85.2 fL (80-100); PLATELET COUNT,PLT 441 10^3/uL (150-450); RED BLOOD CELL COUNT 3.86 10^6/uL (4.6-6.2); WHITE BLOOD CELL COUNT,WBC 20.2 10^3/uL (5.0-10.0)
[2023-07-10 06:37] LABS: BASOPHILS PERCENT AUTO 0.1 % (0.0-1.0); EOSINOPHILS PERCENT AUTO 0.2 % (1.0-3.0); LYMPHOCYTES PERCENT AUTO 9.3 % (20.5-50.1); MONOCYTES PERCENT AUTO 6.3 % (2-8); NEUTROPHILS PERCENT AUTO 84.1 % (42.2-75.2)
[2023-07-10 06:38] LABS: ALBUMIN 2.2 g/dL (3.4-5.0); ANION GAP 13.3 mEq/L (7-13); BILIRUBIN TOTAL 0.2 mg/dL (0.2-1.0); BUN/CREATININE RATIO 15.6 (No establ ref range); CALCIUM 8.4 mg/dL (8.5-10.1); CREATININE 1.09 mg/dL (0.70-1.30); EST CRCL DRUG DOSING (CG) 64.93 mL/min; MAGNESIUM 1.2 mg/dL (1.8-2.4); POTASSIUM,K 3.3 mmol/L (3.5-5.1); PROTEIN TOTAL,TP 7.5 g/dL (6.4-8.2)
[2023-07-10 06:43] LABS: A/G RATIO 0.42
[2023-07-10 07:10] LABS: EOSINOPHILS PERCENT MAN 2 % (1-3); LYMPHOCYTES PERCENT MAN 10 % (20-50); MONOCYTES PERCENT MAN 4 % (2-8); SEG NEUTROPHILS PERCENT MAN 84 % (42-75)
[2023-07-10] MEDS: Phenazopyridine 95 MG Tab PO SCH ×4 (07:53→21:56)
[2023-07-10] MEDS: Insulin Lispro 100 Units/ML 3 ML Vial SUBCUT SCH ×3 (08:11→17:25)
[2023-07-10] MEDS ORDERED: Ertapenem 1 GM Vial IVPUSH SCH (09:00)
[2023-07-10] MEDS: Saccharomyces Boulardii (Probiotic) 250 MG Cap PO SCH ×2 (09:55→21:57)
[2023-07-10] MEDS: Insulin Glarg,Human.Rec.Analog 100 Unit/ML 10 ML Vial SUBCUT SCH ×2 (09:56→21:57)
[2023-07-10] MEDS ORDERED: Potassium Chloride 20 MEQ in Premix Bag 1 BAG IV ONE (12:24)
[2023-07-10] MEDS ORDERED: Potassium Chloride 10 MEQ Tab.ER PO ONE (12:24)
[2023-07-10] MEDS ORDERED: Magnesium Sulfate/Water 2 GM in Premix Bag 1 BAG IV ONE ×2 (12:35→17:00)
[2023-07-10] MEDS: Magnesium Oxide 400 MG Tab PO SCH (17:18)
[2023-07-10] MEDS ORDERED: hydrOXYzine HCl 25 MG Tab PO PRN (23:07)
[2023-07-11] MEDS: Omeprazole 20 MG Cap.CR PO SCH ×2 (04:57→05:12)
[2023-07-11 06:52] LABS: HEMATOCRIT 34.9 % (40.0-54.0); MEAN CORPUSCULAR HEMOGLOBIN 26.9 pg (27.0-34.0); MEAN CORPUSCULAR HGB CONC 31.5 g/dL (33.0-35.0); MEAN CORPUSCULAR VOLUME 85.3 fL (80-100); PLATELET COUNT,PLT 467 10^3/uL (150-450); RED BLOOD CELL COUNT 4.09 10^6/uL (4.6-6.2); WHITE BLOOD CELL COUNT,WBC 22.4 10^3/uL (5.0-10.0)
[2023-07-11 06:57] LABS: BASOPHILS PERCENT AUTO 0.1 % (0.0-1.0); EOSINOPHILS PERCENT AUTO 0.6 % (1.0-3.0); LYMPHOCYTES PERCENT AUTO 12.2 % (20.5-50.1); MONOCYTES PERCENT AUTO 6.9 % (2-8); NEUTROPHILS PERCENT AUTO 80.2 % (42.2-75.2)
[2023-07-11 07:13] LABS: ANION GAP 9.7 mEq/L (7-13); BILIRUBIN TOTAL 0.3 mg/dL (0.2-1.0); BUN/CREATININE RATIO 11.9 (No establ ref range); C-REACTIVE PROTEIN 19.91 ng/dL (<=0.30); CALCIUM 8.6 mg/dL (8.5-10.1); CREATININE 0.84 mg/dL (0.70-1.30); EST CRCL DRUG DOSING (CG) 84.26 mL/min; MAGNESIUM 1.8 mg/dL (1.8-2.4); POTASSIUM,K 3.7 mmol/L (3.5-5.1); PROTEIN TOTAL,TP 7.4 g/dL (6.4-8.2)
[2023-07-11 07:15] LABS: A/G RATIO 0.37
[2023-07-11 08:16] LABS: BAND PERCENT MAN 3 %; EOSINOPHILS PERCENT MAN 4 % (1-3); LYMPHOCYTES PERCENT MAN 13 % (20-50); MONOCYTES PERCENT MAN 8 % (2-8); NRBC MANUAL 2 /100WBC; SEG NEUTROPHILS PERCENT MAN 72 % (42-75)
[2023-07-11] MEDS ORDERED: Cefepime 2 GM in Sodium Chloride 0.9% 100 ML IV SCH (09:00)
[2023-07-11] MEDS ORDERED: Cefepime 2 GM Vial IVPUSH SCH (09:00)
[2023-07-11] MEDS ORDERED: ceFAZolin 2 GM Vial IVPUSH SCH (09:00)
[2023-07-11] MEDS ORDERED: Non-Formulary Medication 1 Each (Magnesium Oxide [Magnesium Oxide] 400 MG Tablet) PO SCH (09:00)
[2023-07-11] MEDS: Magnesium Oxide 400 MG Tab PO SCH ×2 (09:13→09:51)
[2023-07-11] MEDS: Saccharomyces Boulardii (Probiotic) 250 MG Cap PO SCH ×2 (09:13→21:47)
[2023-07-11] MEDS: Lisinopril 20 MG Tab PO SCH (09:14)
[2023-07-11] MEDS: Gabapentin 400 MG Cap PO SCH ×3 (09:15→21:47)
[2023-07-11] MEDS: Folic Acid 1 MG Tab PO SCH (09:15)
[2023-07-11] MEDS: Thiamine 100 MG Tab PO SCH (09:15)
[2023-07-11] MEDS: Phenazopyridine 95 MG Tab PO SCH ×3 (09:15→21:48)
[2023-07-11] MEDS: Multivitamin Tab PO SCH (09:15)
[2023-07-11] MEDS: Insulin Lispro 100 Units/ML 3 ML Vial SUBCUT SCH ×3 (09:16→16:59)
[2023-07-11] MEDS: Insulin Glarg,Human.Rec.Analog 100 Unit/ML 10 ML Vial SUBCUT SCH ×2 (09:17→21:45)
[2023-07-11] MEDS: Piperacillin/Tazobactam 3.375 GM in Sodium Chloride 0.9% 100 ML IV SCH ×3 (12:11→23:25)
[2023-07-11] MEDS: Loperamide 2 MG Cap PO PRN ×2 (17:29→23:05)
[2023-07-11] MEDS ORDERED: Insulin Lispro 100 Units/ML 3 ML Vial SUBCUT ONE (19:22)
[2023-07-11] MEDS ORDERED: Midodrine 5 MG Tab PO ONE (21:43)
[2023-07-11] MEDS: OLANZapine 5 MG Tab PO SCH (21:47)
[2023-07-11] MEDS: Mirtazapine 15 MG Tab PO SCH (21:48)
[2023-07-11] MEDS: Sodium Chloride 0.9% 1,000 ML IV SCH (21:55)
[2023-07-11] MEDS: LORazepam 2 MG/ML SDV IVPUSH PRN (23:18)
[2023-07-12] MEDS: Omeprazole 20 MG Cap.CR PO SCH (05:31)
[2023-07-12] MEDS: Piperacillin/Tazobactam 3.375 GM in Sodium Chloride 0.9% 100 ML IV SCH (05:32)
[2023-07-12] MEDS: Phenazopyridine 95 MG Tab PO SCH ×4 (05:38→21:46)
[2023-07-12] MEDS: Sodium Chloride 0.9% 1,000 ML IV SCH ×2 (05:44→14:28)
[2023-07-12 06:20] LABS: HEMATOCRIT 34.3 % (40.0-54.0); HEMOGLOBIN 10.5 g/dL (14.0-18.0); MEAN CORPUSCULAR HEMOGLOBIN 26.9 pg (27.0-34.0); MEAN CORPUSCULAR HGB CONC 30.6 g/dL (33.0-35.0); MEAN CORPUSCULAR VOLUME 87.9 fL (80-100); PLATELET COUNT,PLT 448 10^3/uL (150-450); WHITE BLOOD CELL COUNT,WBC 11.6 10^3/uL (5.0-10.0)
[2023-07-12 06:48] LABS: ALBUMIN 1.8 g/dL (3.4-5.0); ANION GAP 11.3 mEq/L (7-13); BILIRUBIN TOTAL 0.2 mg/dL (0.2-1.0); C-REACTIVE PROTEIN 11.6 ng/dL (<=0.30); CALCIUM 8.1 mg/dL (8.5-10.1); CREATININE 1.1 mg/dL (0.70-1.30); EST CRCL DRUG DOSING (CG) 64.34 mL/min; MAGNESIUM 1.6 mg/dL (1.8-2.4); POTASSIUM,K 3.3 mmol/L (3.5-5.1); PROTEIN TOTAL,TP 6.8 g/dL (6.4-8.2)
[2023-07-12 06:49] LABS: A/G RATIO 0.36
[2023-07-12 07:16] LABS: BASOPHILS PERCENT AUTO 0.1 % (0.0-1.0); EOSINOPHILS PERCENT AUTO 2.8 % (1.0-3.0); LYMPHOCYTES PERCENT AUTO 25.1 % (20.5-50.1); MONOCYTES PERCENT AUTO 6.1 % (2-8); NEUTROPHILS PERCENT AUTO 65.9 % (42.2-75.2)
[2023-07-12 07:22] LABS: BAND PERCENT MAN 1 %; BASOPHILS PERCENT MAN 1; EOSINOPHILS PERCENT MAN 3 % (1-3); LYMPHOCYTES PERCENT MAN 23 % (20-50); MONOCYTES PERCENT MAN 4 % (2-8); NRBC MANUAL 8 /100WBC; SEG NEUTROPHILS PERCENT MAN 68 % (42-75)
[2023-07-12] MEDS: Saccharomyces Boulardii (Probiotic) 250 MG Cap PO SCH ×2 (08:18→21:46)
[2023-07-12] MEDS: Thiamine 100 MG Tab PO SCH (08:18)
[2023-07-12] MEDS: Lisinopril 20 MG Tab PO SCH (08:19)
[2023-07-12] MEDS: Multivitamin Tab PO SCH (08:19)
[2023-07-12] MEDS: Gabapentin 400 MG Cap PO SCH ×3 (08:20→21:46)
[2023-07-12] MEDS: Magnesium Oxide 400 MG Tab PO SCH (08:20)
[2023-07-12] MEDS: Folic Acid 1 MG Tab PO SCH (08:20)
[2023-07-12] MEDS: Insulin Glarg,Human.Rec.Analog 100 Unit/ML 10 ML Vial SUBCUT SCH ×2 (08:20→22:12)
[2023-07-12] MEDS: Insulin Lispro 100 Units/ML 3 ML Vial SUBCUT SCH ×3 (08:22→17:07)
[2023-07-12] MEDS ORDERED: Cefepime 2 GM Vial IVPUSH ONE ×2 (10:01→12:30)
[2023-07-12] MEDS ORDERED: Magnesium Sulfate/Water 2 GM in Premix Bag 1 BAG IV ONE ×2 (11:31→17:00)
[2023-07-12] MEDS ORDERED: Potassium Chloride 20 MEQ in Premix Bag 1 BAG IV ONE (11:32)
[2023-07-12] MEDS: Loperamide 2 MG Cap PO PRN (12:32)
[2023-07-12] MEDS ORDERED: Potassium Chloride 10 MEQ Tab.ER PO ONE (17:00)
[2023-07-12] MEDS: Mirtazapine 15 MG Tab PO SCH (21:46)
[2023-07-12] MEDS: OLANZapine 5 MG Tab PO SCH (21:46)
[2023-07-12] MEDS: Cefepime 2 GM Vial IVPUSH SCH (21:51)
[2023-07-12] MEDS: Acetaminophen/oxyCODONE 325-5 MG Tab PO PRN (22:14)
[2023-07-13] MEDS: LORazepam 2 MG/ML SDV IVPUSH PRN (00:54)
[2023-07-13] MEDS: Loperamide 2 MG Cap PO PRN ×3 (04:26→17:57)
[2023-07-13] MEDS: Phenazopyridine 95 MG Tab PO SCH ×4 (04:27→21:01)
[2023-07-13] MEDS: Omeprazole 20 MG Cap.CR PO SCH ×2 (04:27→05:11)
[2023-07-13 06:32] LABS: HEMATOCRIT 32.6 % (40.0-54.0); MEAN CORPUSCULAR HEMOGLOBIN 27.3 pg (27.0-34.0); MEAN CORPUSCULAR HGB CONC 30.7 g/dL (33.0-35.0); MEAN CORPUSCULAR VOLUME 89.1 fL (80-100); PLATELET COUNT,PLT 472 10^3/uL (150-450); RED BLOOD CELL COUNT 3.66 10^6/uL (4.6-6.2); WHITE BLOOD CELL COUNT,WBC 9.8 10^3/uL (5.0-10.0)
[2023-07-13 06:47] LABS: ALBUMIN 1.8 g/dL (3.4-5.0); ANION GAP 11.2 mEq/L (7-13); BILIRUBIN TOTAL 0.1 mg/dL (0.2-1.0); BUN/CREATININE RATIO 8.6 (No establ ref range); C-REACTIVE PROTEIN 6.13 ng/dL (<=0.30); CALCIUM 8.1 mg/dL (8.5-10.1); CREATININE 1.05 mg/dL (0.70-1.30); EST CRCL DRUG DOSING (CG) 67.41 mL/min; MAGNESIUM 1.8 mg/dL (1.8-2.4); POTASSIUM,K 4.2 mmol/L (3.5-5.1); PROTEIN TOTAL,TP 6.8 g/dL (6.4-8.2)
[2023-07-13 06:57] LABS: A/G RATIO 0.36
[2023-07-13 07:16] LABS: BASOPHILS PERCENT AUTO 0.1 % (0.0-1.0); EOSINOPHILS PERCENT AUTO 3.8 % (1.0-3.0); LYMPHOCYTES PERCENT AUTO 28.3 % (20.5-50.1); MONOCYTES PERCENT AUTO 9.3 % (2-8); NEUTROPHILS PERCENT AUTO 58.5 % (42.2-75.2)
[2023-07-13 07:23] LABS: BAND PERCENT MAN 3 %; BASOPHILS PERCENT MAN 1; EOSINOPHILS PERCENT MAN 6 % (1-3); LYMPHOCYTES PERCENT MAN 32 % (20-50); MONOCYTES PERCENT MAN 11 % (2-8); NRBC MANUAL 2 /100WBC; SEG NEUTROPHILS PERCENT MAN 47 % (42-75)
[2023-07-13] MEDS: Insulin Lispro 100 Units/ML 3 ML Vial SUBCUT SCH ×3 (08:30→17:53)
[2023-07-13] MEDS: Saccharomyces Boulardii (Probiotic) 250 MG Cap PO SCH ×2 (09:58→21:01)
[2023-07-13] MEDS: Gabapentin 400 MG Cap PO SCH ×3 (09:58→21:02)
[2023-07-13] MEDS: Folic Acid 1 MG Tab PO SCH (09:58)
[2023-07-13] MEDS: Acetaminophen/oxyCODONE 325-5 MG Tab PO PRN ×2 (09:58→21:01)
[2023-07-13] MEDS: Lisinopril 20 MG Tab PO SCH (10:00)
[2023-07-13] MEDS: Multivitamin Tab PO SCH (10:01)
[2023-07-13] MEDS: Magnesium Oxide 400 MG Tab PO SCH (10:01)
[2023-07-13] MEDS: Cefepime 2 GM Vial IVPUSH SCH ×2 (10:01→21:15)
[2023-07-13] MEDS: Thiamine 100 MG Tab PO SCH (10:01)
[2023-07-13] MEDS: Insulin Glarg,Human.Rec.Analog 100 Unit/ML 10 ML Vial SUBCUT SCH ×2 (10:10→21:08)
[2023-07-13] MEDS ORDERED: Magnesium Sulfate/Water 2 GM in Premix Bag 1 BAG IV ONE (11:31)
[2023-07-13] MEDS: Mirtazapine 15 MG Tab PO SCH (21:01)
[2023-07-13] MEDS: OLANZapine 5 MG Tab PO SCH (21:02)
[2023-07-14] MEDS: Omeprazole 20 MG Cap.CR PO SCH (05:15)
[2023-07-14] MEDS: Phenazopyridine 95 MG Tab PO SCH ×2 (05:17→06:53)
[2023-07-14] MEDS: Acetaminophen/oxyCODONE 325-5 MG Tab PO PRN ×3 (05:32→20:20)
[2023-07-14 06:21] LABS: BASOPHILS PERCENT AUTO 0.1 % (0.0-1.0); EOSINOPHILS PERCENT AUTO 5.8 % (1.0-3.0); HEMATOCRIT 32.3 % (40.0-54.0); HEMOGLOBIN 9.7 g/dL (14.0-18.0); LYMPHOCYTES PERCENT AUTO 46.5 % (20.5-50.1); MEAN CORPUSCULAR HEMOGLOBIN 26.9 pg (27.0-34.0); MEAN CORPUSCULAR VOLUME 89.7 fL (80-100); MONOCYTES PERCENT AUTO 8.3 % (2-8); NEUTROPHILS PERCENT AUTO 39.3 % (42.2-75.2); PLATELET COUNT,PLT 524 10^3/uL (150-450); WHITE BLOOD CELL COUNT,WBC 7.8 10^3/uL (5.0-10.0)
[2023-07-14 06:38] LABS: ALBUMIN 1.8 g/dL (3.4-5.0); BILIRUBIN TOTAL 0.2 mg/dL (0.2-1.0); BUN/CREATININE RATIO 12.1 (No establ ref range); C-REACTIVE PROTEIN 3.38 ng/dL (<=0.30); CALCIUM 8.5 mg/dL (8.5-10.1); CREATININE 0.99 mg/dL (0.70-1.30); EST CRCL DRUG DOSING (CG) 71.49 mL/min; MAGNESIUM 1.9 mg/dL (1.8-2.4); PROTEIN TOTAL,TP 7.1 g/dL (6.4-8.2)
[2023-07-14 06:42] LABS: A/G RATIO 0.34
[2023-07-14] MEDS: Thiamine 100 MG Tab PO SCH (08:25)
[2023-07-14] MEDS: Saccharomyces Boulardii (Probiotic) 250 MG Cap PO SCH ×2 (08:25→21:52)
[2023-07-14] MEDS: Folic Acid 1 MG Tab PO SCH (08:25)
[2023-07-14] MEDS: Insulin Lispro 100 Units/ML 3 ML Vial SUBCUT SCH ×3 (08:25→17:02)
[2023-07-14] MEDS: Magnesium Oxide 400 MG Tab PO SCH (08:25)
[2023-07-14] MEDS: Gabapentin 400 MG Cap PO SCH ×3 (08:25→21:53)
[2023-07-14] MEDS: Lisinopril 20 MG Tab PO SCH (08:26)
[2023-07-14] MEDS: Multivitamin Tab PO SCH (08:26)
[2023-07-14] MEDS: Cefepime 2 GM Vial IVPUSH SCH ×2 (08:27→21:47)
[2023-07-14] MEDS: Insulin Glarg,Human.Rec.Analog 100 Unit/ML 10 ML Vial SUBCUT SCH ×2 (08:33→21:33)
[2023-07-14] MEDS ORDERED: Tolterodine 2 MG Tab PO ONE (11:03)
[2023-07-14] MEDS: Midodrine 5 MG Tab PO PRN (16:47)
[2023-07-14] MEDS: Lactated Ringers 1,000 ML IV SCH (20:22)
[2023-07-14] MEDS: Mirtazapine 15 MG Tab PO SCH (21:52)
[2023-07-14] MEDS: OLANZapine 5 MG Tab PO SCH (21:53)
[2023-07-15] MEDS: Lactated Ringers 1,000 ML IV SCH (02:56)
[2023-07-15] MEDS: Loperamide 2 MG Cap PO PRN (03:43)
[2023-07-15] MEDS: Omeprazole 20 MG Cap.CR PO SCH (05:04)
[2023-07-15] MEDS: Acetaminophen/oxyCODONE 325-5 MG Tab PO PRN ×3 (05:04→22:06)
[2023-07-15] MEDS: Insulin Lispro 100 Units/ML 3 ML Vial SUBCUT SCH ×3 (07:45→16:37)
[2023-07-15] MEDS: Saccharomyces Boulardii (Probiotic) 250 MG Cap PO SCH ×2 (08:44→21:37)
[2023-07-15] MEDS: Tolterodine 2 MG Cap.ER PO SCH (08:44)
[2023-07-15] MEDS: Insulin Glarg,Human.Rec.Analog 100 Unit/ML 10 ML Vial SUBCUT SCH ×2 (08:44→22:14)
[2023-07-15] MEDS: Folic Acid 1 MG Tab PO SCH (08:44)
[2023-07-15] MEDS: Gabapentin 400 MG Cap PO SCH ×3 (08:46→21:39)
[2023-07-15] MEDS: Magnesium Oxide 400 MG Tab PO SCH (08:46)
[2023-07-15] MEDS: Multivitamin Tab PO SCH (08:46)
[2023-07-15] MEDS: Thiamine 100 MG Tab PO SCH (08:46)
[2023-07-15] MEDS: Lisinopril 20 MG Tab PO SCH (08:47)
[2023-07-15] MEDS: Cefepime 2 GM Vial IVPUSH SCH ×2 (08:48→21:43)
[2023-07-15] MEDS: Vancomycin 125 MG Cap PO SCH ×4 (12:12→21:38)
[2023-07-15] MEDS: Midodrine 5 MG Tab PO PRN (16:26)
[2023-07-15] MEDS: OLANZapine 5 MG Tab PO SCH (21:37)
[2023-07-15] MEDS: Mirtazapine 15 MG Tab PO SCH (21:37)
[2023-07-15] MEDS: Famotidine 20 MG Tab PO SCH (21:39)
[2023-07-16] MEDS: Acetaminophen/oxyCODONE 325-5 MG Tab PO PRN ×3 (05:03→22:26)
[2023-07-16 06:26] LABS: BASOPHILS PERCENT AUTO 0.1 % (0.0-1.0); EOSINOPHILS PERCENT AUTO 5.1 % (1.0-3.0); HEMATOCRIT 31.6 % (40.0-54.0); HEMOGLOBIN 9.4 g/dL (14.0-18.0); LYMPHOCYTES PERCENT AUTO 33.3 % (20.5-50.1); MEAN CORPUSCULAR HEMOGLOBIN 26.8 pg (27.0-34.0); MEAN CORPUSCULAR HGB CONC 29.7 g/dL (33.0-35.0); MONOCYTES PERCENT AUTO 5.7 % (2-8); NEUTROPHILS PERCENT AUTO 55.8 % (42.2-75.2); PLATELET COUNT,PLT 611 10^3/uL (150-450); RED BLOOD CELL COUNT 3.51 10^6/uL (4.6-6.2); WHITE BLOOD CELL COUNT,WBC 10.2 10^3/uL (5.0-10.0)
[2023-07-16 06:52] LABS: ANION GAP 11.3 mEq/L (7-13); BILIRUBIN TOTAL 0.1 mg/dL (0.2-1.0); BUN/CREATININE RATIO 24.5 (No establ ref range); CALCIUM 8.6 mg/dL (8.5-10.1); CREATININE 1.02 mg/dL (0.70-1.30); EST CRCL DRUG DOSING (CG) 69.39 mL/min; MAGNESIUM 1.7 mg/dL (1.8-2.4); POTASSIUM,K 4.3 mmol/L (3.5-5.1); PROTEIN TOTAL,TP 7.4 g/dL (6.4-8.2)
[2023-07-16 06:54] LABS: A/G RATIO 0.37
[2023-07-16] MEDS: Insulin Lispro 100 Units/ML 3 ML Vial SUBCUT SCH ×3 (08:39→17:31)
[2023-07-16] MEDS: Insulin Glarg,Human.Rec.Analog 100 Unit/ML 10 ML Vial SUBCUT SCH ×2 (08:40→22:28)
[2023-07-16] MEDS: Saccharomyces Boulardii (Probiotic) 250 MG Cap PO SCH ×2 (08:41→22:26)
[2023-07-16] MEDS: Tolterodine 2 MG Cap.ER PO SCH (08:41)
[2023-07-16] MEDS: Gabapentin 400 MG Cap PO SCH ×3 (08:41→22:28)
[2023-07-16] MEDS: Folic Acid 1 MG Tab PO SCH (08:42)
[2023-07-16] MEDS: Magnesium Oxide 400 MG Tab PO SCH (08:42)
[2023-07-16] MEDS: Lisinopril 20 MG Tab PO SCH (08:42)
[2023-07-16] MEDS: Vancomycin 125 MG Cap PO SCH ×4 (08:42→22:28)
[2023-07-16] MEDS: Thiamine 100 MG Tab PO SCH (08:42)
[2023-07-16] MEDS: Famotidine 20 MG Tab PO SCH ×2 (08:42→22:27)
[2023-07-16] MEDS: Multivitamin Tab PO SCH (08:42)
[2023-07-16] MEDS: Cefepime 2 GM Vial IVPUSH SCH ×2 (08:44→22:35)
[2023-07-16] MEDS: Loperamide 2 MG Cap PO PRN (11:35)
[2023-07-16] MEDS: OLANZapine 5 MG Tab PO SCH (22:26)
[2023-07-16] MEDS: Mirtazapine 15 MG Tab PO SCH (22:27)
[2023-07-17] MEDS: Acetaminophen/oxyCODONE 325-5 MG Tab PO PRN (02:47)
[2023-07-17] MEDS: Loperamide 2 MG Cap PO PRN (02:47)
[2023-07-17 06:10] LABS: HEMOGLOBIN 8.8 g/dL (14.0-18.0); MEAN CORPUSCULAR HEMOGLOBIN 26.5 pg (27.0-34.0); MEAN CORPUSCULAR HGB CONC 29.3 g/dL (33.0-35.0); MEAN CORPUSCULAR VOLUME 90.4 fL (80-100); PLATELET COUNT,PLT 571 10^3/uL (150-450); RED BLOOD CELL COUNT 3.32 10^6/uL (4.6-6.2); WHITE BLOOD CELL COUNT,WBC 10.4 10^3/uL (5.0-10.0)
[2023-07-17 06:20] LABS: BASOPHILS PERCENT AUTO 0.2 % (0.0-1.0); EOSINOPHILS PERCENT AUTO 4.9 % (1.0-3.0); LYMPHOCYTES PERCENT AUTO 33.8 % (20.5-50.1); MONOCYTES PERCENT AUTO 5.3 % (2-8); NEUTROPHILS PERCENT AUTO 55.8 % (42.2-75.2)
[2023-07-17 06:22] LABS: ALBUMIN 1.9 g/dL (3.4-5.0); ANION GAP 11.3 mEq/L (7-13); BILIRUBIN TOTAL 0.1 mg/dL (0.2-1.0); BUN/CREATININE RATIO 21.8 (No establ ref range); CALCIUM 8.5 mg/dL (8.5-10.1); CREATININE 1.24 mg/dL (0.70-1.30); EST CRCL DRUG DOSING (CG) 57.08 mL/min; MAGNESIUM 1.6 mg/dL (1.8-2.4); POTASSIUM,K 4.3 mmol/L (3.5-5.1); PROTEIN TOTAL,TP 7.1 g/dL (6.4-8.2)
[2023-07-17 06:23] LABS: A/G RATIO 0.37
[2023-07-17] MEDS ORDERED: LORazepam 1 MG Tab PO PRN (08:26)
[2023-07-17 08:45] LABS: BAND PERCENT MAN 1 %; BASOPHILS PERCENT MAN 1; EOSINOPHILS PERCENT MAN 5 % (1-3); HYPOCHROMASIA 1+ SLIGHT; LYMPHOCYTES PERCENT MAN 34 % (20-50); MONOCYTES PERCENT MAN 5 % (2-8); NRBC MANUAL 1 /100WBC; SEG NEUTROPHILS PERCENT MAN 54 % (42-75)
[2023-07-17 08:46] LABS: PLATELET COUNT ESTIMATE INCREASED
[2023-07-17] MEDS: Saccharomyces Boulardii (Probiotic) 250 MG Cap PO SCH (09:33)
[2023-07-17] MEDS: Cefepime 2 GM Vial IVPUSH SCH (09:33)
[2023-07-17] MEDS: Tolterodine 2 MG Cap.ER PO SCH (09:33)
[2023-07-17] MEDS: Insulin Glarg,Human.Rec.Analog 100 Unit/ML 10 ML Vial SUBCUT SCH (09:33)
[2023-07-17] MEDS: Famotidine 20 MG Tab PO SCH (09:33)
[2023-07-17] MEDS: Insulin Lispro 100 Units/ML 3 ML Vial SUBCUT SCH ×2 (09:34→12:37)
[2023-07-17] MEDS: Folic Acid 1 MG Tab PO SCH (09:35)
[2023-07-17] MEDS: Gabapentin 400 MG Cap PO SCH ×2 (09:35→14:00)
[2023-07-17] MEDS: Thiamine 100 MG Tab PO SCH (09:35)
[2023-07-17] MEDS: Vancomycin 125 MG Cap PO SCH ×2 (09:35→14:00)
[2023-07-17] MEDS: Magnesium Oxide 400 MG Tab PO SCH (09:35)
[2023-07-17] MEDS: Multivitamin Tab PO SCH (09:35)
[2023-07-17] MEDS: Lisinopril 20 MG Tab PO SCH (09:36)
[2023-07-17 13:47] VITALS: BP 110/72; PULSE 98
== END 2023-07-17 14:34 | disposition swing bed (61) | DRG 698 ==
LOC: DL.ED 20:07 → DL.MS 23:13
PROVIDERS: ADMIT Internal Medicine; ATTEND Internal Medicine
DX: T83.510A Infection and inflammatory reaction due to cystostomy catheter, initial encounter (principal); A41.9 Sepsis, unspecified organism; E43 Unspecified severe protein-calorie malnutrition; A04.72 Enterocolitis due to Clostridium difficile, not specified as recurrent; N39.0 Urinary tract infection, site not specified; R64 Cachexia; E87.1 Hypo-osmolality and hyponatremia; Z68.1 Body mass index [BMI] 19.9 or less, adult; I10 Essential (primary) hypertension; J44.9 Chronic obstructive pulmonary disease, unspecified; K21.9 Gastro-esophageal reflux disease without esophagitis; Y83.8 Other surgical procedures as the cause of abnormal reaction of the patient, or of later complication, without mention of misadventure at the time of the procedure; E11.42 Type 2 diabetes mellitus with diabetic polyneuropathy; B96.89 Other specified bacterial agents as the cause of diseases classified elsewhere; E87.6 Hypokalemia; N40.1 Benign prostatic hyperplasia with lower urinary tract symptoms; R33.8 Other retention of urine; B96.20 Unspecified Escherichia coli [E. coli] as the cause of diseases classified elsewhere; F41.9 Anxiety disorder, unspecified; E78.00 Pure hypercholesterolemia, unspecified; D50.9 Iron deficiency anemia, unspecified; D75.839 Thrombocytosis, unspecified; E87.8 Other disorders of electrolyte and fluid balance, not elsewhere classified; E11.65 Type 2 diabetes mellitus with hyperglycemia; E83.52 Hypercalcemia; F15.10 Other stimulant abuse, uncomplicated; F12.10 Cannabis abuse, uncomplicated; I95.9 Hypotension, unspecified; Z91.148 Patient's other noncompliance with medication regimen for other reason; Z79.899 Other long term (current) drug therapy; Z11.52 Encounter for screening for COVID-19; Z98.890 Other specified postprocedural states; Z79.4 Long term (current) use of insulin
CPT/HCPCS: 0241U; 36415; 51702; 73630-LT; 74018; 80053; 80202; 80305-QW; 80307; 81001; 82306; 82533; 82550; 82947; 83605; 83735; 84145; 85025; 86140; 87040; 87086; 87088; 87186; 87324; 87493; 96361; 96374; 97110-GO; 97110-GP; 97161-GP; 97165-GO; 97530-GO; 99232; 99233; 99285; 99285-25; A9270-GY; J0692; J0696; J1335; J1815-GY; J2060; J2543; J3370; J3475; J3480; J3490; J7030; J7050; J7120

== ENCOUNTER 2023-07-15 10:36 | Inpatient (IN) | payer MEDICAID ==
[2023-07-17] MEDS ORDERED: Polyethylene Glycol 3350 Powder 17 GM Packet PO PRN (12:21)
[2023-07-17] MEDS ORDERED: Albuterol/Ipratropium 3.0-0.5 MG/3 ML Neb Soln NEB PRN (12:21)
[2023-07-17] MEDS ORDERED: Flumazenil 0.1 MG/ML 5 ML MDV IVPUSH PRN (12:21)
[2023-07-17] MEDS ORDERED: Ondansetron 4 MG/2 ML SDV IVPUSH PRN (12:21)
[2023-07-17] MEDS ORDERED: Glucagon,Human Recombinant 1 MG Vial IM PRN ×2 (12:21)
[2023-07-17] MEDS ORDERED: Naloxone 2 MG/2 ML Syringe IVPUSH PRN (12:21)
[2023-07-17] MEDS ORDERED: 50% Dextrose in Water 50 ML Syringe IVPUSH PRN (12:21)
[2023-07-17] MEDS ORDERED: Sennosides/Docusate Sodium 50-8.6 MG Tab PO PRN (12:21)
[2023-07-17] MEDS ORDERED: Magnesium Hydroxide 400 MG/5 ML Susp 30 ML Cup PO PRN (12:21)
[2023-07-17] MEDS: Vancomycin 125 MG Cap PO SCH ×3 (15:00→21:40)
[2023-07-17] MEDS: Gabapentin 400 MG Cap PO SCH ×2 (15:00→21:40)
[2023-07-17] MEDS: Insulin Lispro 100 Units/ML 3 ML Vial SUBCUT SCH (17:10)
[2023-07-17] MEDS: Mirtazapine 15 MG Tab PO SCH (21:40)
[2023-07-17] MEDS: Saccharomyces Boulardii (Probiotic) 250 MG Cap PO SCH (21:40)
[2023-07-17] MEDS: OLANZapine 5 MG Tab PO SCH (21:41)
[2023-07-17] MEDS: Famotidine 20 MG Tab PO SCH (21:41)
[2023-07-17] MEDS: Cefepime 2 GM Vial IVPUSH SCH (21:43)
[2023-07-17] MEDS: Acetaminophen/oxyCODONE 325-5 MG Tab PO PRN (22:10)
[2023-07-17] MEDS: Insulin Glarg,Human.Rec.Analog 100 Unit/ML 10 ML Vial SUBCUT SCH (22:11)
[2023-07-18] MEDS: Acetaminophen/oxyCODONE 325-5 MG Tab PO PRN ×3 (05:41→23:44)
[2023-07-18 06:45] LABS: BASOPHILS PERCENT AUTO 0.2 % (0.0-1.0); EOSINOPHILS PERCENT AUTO 4.9 % (1.0-3.0); HEMATOCRIT 30.7 % (40.0-54.0); HEMOGLOBIN 9.1 g/dL (14.0-18.0); LYMPHOCYTES PERCENT AUTO 31.3 % (20.5-50.1); MEAN CORPUSCULAR HEMOGLOBIN 26.7 pg (27.0-34.0); MEAN CORPUSCULAR HGB CONC 29.6 g/dL (33.0-35.0); NEUTROPHILS PERCENT AUTO 57.6 % (42.2-75.2); PLATELET COUNT,PLT 664 10^3/uL (150-450); RED BLOOD CELL COUNT 3.41 10^6/uL (4.6-6.2); WHITE BLOOD CELL COUNT,WBC 10.4 10^3/uL (5.0-10.0)
[2023-07-18 07:02] LABS: ANION GAP 9.9 mEq/L (7-13); BUN/CREATININE RATIO 32.3 (No establ ref range); CALCIUM 8.4 mg/dL (8.5-10.1); CREATININE 0.99 mg/dL (0.70-1.30); EST CRCL DRUG DOSING (CG) 71.02 mL/min; POTASSIUM,K 3.9 mmol/L (3.5-5.1); PROTEIN TOTAL,TP 7.1 g/dL (6.4-8.2)
[2023-07-18 07:03] LABS: BILIRUBIN TOTAL 0.1 mg/dL (0.2-1.0); MAGNESIUM 1.7 mg/dL (1.8-2.4)
[2023-07-18 07:22] LABS: A/G RATIO 0.39
[2023-07-18] MEDS: Insulin Lispro 100 Units/ML 3 ML Vial SUBCUT SCH ×3 (08:31→17:02)
[2023-07-18] MEDS: Insulin Glarg,Human.Rec.Analog 100 Unit/ML 10 ML Vial SUBCUT SCH ×2 (08:33→20:40)
[2023-07-18] MEDS: Magnesium Oxide 400 MG Tab PO SCH (08:37)
[2023-07-18] MEDS: Gabapentin 400 MG Cap PO SCH ×3 (08:37→20:43)
[2023-07-18] MEDS: Tolterodine 2 MG Cap.ER PO SCH (08:38)
[2023-07-18] MEDS: Saccharomyces Boulardii (Probiotic) 250 MG Cap PO SCH ×2 (08:38→20:42)
[2023-07-18] MEDS: Thiamine 100 MG Tab PO SCH (08:38)
[2023-07-18] MEDS: Lisinopril 20 MG Tab PO SCH (08:38)
[2023-07-18] MEDS: Folic Acid 1 MG Tab PO SCH (08:38)
[2023-07-18] MEDS: Multivitamin Tab PO SCH (08:39)
[2023-07-18] MEDS: Vancomycin 125 MG Cap PO SCH ×4 (08:39→20:43)
[2023-07-18] MEDS: Famotidine 20 MG Tab PO SCH ×2 (08:39→20:42)
[2023-07-18] MEDS: Cefepime 2 GM Vial IVPUSH SCH ×2 (08:48→20:43)
[2023-07-18] MEDS: OLANZapine 5 MG Tab PO SCH (20:42)
[2023-07-18] MEDS: Mirtazapine 15 MG Tab PO SCH (20:42)
[2023-07-19] MEDS: Acetaminophen/oxyCODONE 325-5 MG Tab PO PRN ×3 (05:48→17:13)
[2023-07-19] MEDS: Insulin Lispro 100 Units/ML 3 ML Vial SUBCUT SCH ×3 (09:31→17:08)
[2023-07-19] MEDS: Folic Acid 1 MG Tab PO SCH (09:32)
[2023-07-19] MEDS: Gabapentin 400 MG Cap PO SCH ×3 (09:32→20:41)
[2023-07-19] MEDS: Multivitamin Tab PO SCH (09:32)
[2023-07-19] MEDS: Thiamine 100 MG Tab PO SCH (09:32)
[2023-07-19] MEDS: Tolterodine 2 MG Cap.ER PO SCH (09:32)
[2023-07-19] MEDS: Famotidine 20 MG Tab PO SCH ×2 (09:32→20:41)
[2023-07-19] MEDS: Insulin Glarg,Human.Rec.Analog 100 Unit/ML 10 ML Vial SUBCUT SCH ×2 (09:33→20:42)
[2023-07-19] MEDS: Saccharomyces Boulardii (Probiotic) 250 MG Cap PO SCH ×2 (09:33→20:41)
[2023-07-19] MEDS: Vancomycin 125 MG Cap PO SCH ×4 (09:33→20:41)
[2023-07-19] MEDS: Magnesium Oxide 400 MG Tab PO SCH (09:33)
[2023-07-19] MEDS: Lisinopril 20 MG Tab PO SCH (09:34)
[2023-07-19] MEDS: Cefepime 2 GM Vial IVPUSH SCH ×2 (09:34→20:42)
[2023-07-19 13:28] LABS: APPEARANCE,URINE CLEAR (CLEAR); BILIRUBIN,URINE NEGATIVE (NEGATIVE); COLOR,URINE YELLOW (YELLOW); GLUCOSE,URINE NEGATIVE (NEGATIVE); KETONES,URINE 15 (NEGATIVE); LEUKOCYTE ESTERASE,URINE SMALL (NEGATIVE); NITRITE,URINE NEGATIVE (NEGATIVE); OCCULT BLOOD,URINE NEGATIVE (NEGATIVE); PROTEIN,URINE 100 (NEGATIVE); UROBILINOGEN,URINE 0.2 mg/dL (0.2-1.0)
[2023-07-19 13:36] LABS: AMORPHOUS SEDIMENT,URINE FEW /HPF (NOT SEEN); BACTERIA,URINE MODERATE /HPF (0-FEW/HPF); EPITHELIAL CELLS,URINE RARE /HPF (NOT SEEN); MUCUS,URINE FEW /LPF (NOT SEEN); RBC,URINE 0-5 /HPF (0-5); WBC,URINE SEMI-PACKED /HPF (0-5/HPF)
[2023-07-19] MEDS: Loperamide 2 MG Cap PO PRN (13:51)
[2023-07-19] MEDS: OLANZapine 5 MG Tab PO SCH (20:41)
[2023-07-19] MEDS: Mirtazapine 15 MG Tab PO SCH (20:41)
[2023-07-19] MEDS: LORazepam 1 MG Tab PO PRN (20:41)
[2023-07-20] MEDS: Acetaminophen/oxyCODONE 325-5 MG Tab PO PRN ×4 (06:38→20:44)
[2023-07-20] MEDS: Saccharomyces Boulardii (Probiotic) 250 MG Cap PO SCH ×2 (09:14→20:44)
[2023-07-20] MEDS: Famotidine 20 MG Tab PO SCH ×2 (09:15→20:45)
[2023-07-20] MEDS: Tolterodine 2 MG Cap.ER PO SCH (09:15)
[2023-07-20] MEDS: Loperamide 2 MG Cap PO PRN (09:15)
[2023-07-20] MEDS: Gabapentin 400 MG Cap PO SCH ×3 (09:15→20:44)
[2023-07-20] MEDS: Lisinopril 20 MG Tab PO SCH (09:15)
[2023-07-20] MEDS: Multivitamin Tab PO SCH (09:15)
[2023-07-20] MEDS: Thiamine 100 MG Tab PO SCH (09:15)
[2023-07-20] MEDS: Magnesium Oxide 400 MG Tab PO SCH (09:15)
[2023-07-20] MEDS: Vancomycin 125 MG Cap PO SCH ×4 (09:15→20:45)
[2023-07-20] MEDS: Insulin Lispro 100 Units/ML 3 ML Vial SUBCUT SCH ×3 (09:16→17:02)
[2023-07-20] MEDS: Folic Acid 1 MG Tab PO SCH (09:16)
[2023-07-20] MEDS: Cefepime 2 GM Vial IVPUSH SCH ×2 (09:17→20:45)
[2023-07-20] MEDS: Insulin Glarg,Human.Rec.Analog 100 Unit/ML 10 ML Vial SUBCUT SCH ×2 (09:17→20:46)
[2023-07-20] MEDS: Mirtazapine 15 MG Tab PO SCH (20:44)
[2023-07-20] MEDS: OLANZapine 5 MG Tab PO SCH (20:44)
[2023-07-20] MEDS: LORazepam 1 MG Tab PO PRN (20:45)
[2023-07-21] MEDS: Acetaminophen/oxyCODONE 325-5 MG Tab PO PRN ×5 (02:30→21:40)
[2023-07-21] MEDS: Loperamide 2 MG Cap PO PRN ×2 (02:31→21:39)
[2023-07-21 06:32] LABS: BASOPHILS PERCENT AUTO 0.3 % (0.0-1.0); EOSINOPHILS PERCENT AUTO 5.4 % (1.0-3.0); HEMATOCRIT 29.7 % (40.0-54.0); HEMOGLOBIN 9.1 g/dL (14.0-18.0); LYMPHOCYTES PERCENT AUTO 26.7 % (20.5-50.1); MEAN CORPUSCULAR HEMOGLOBIN 26.8 pg (27.0-34.0); MEAN CORPUSCULAR HGB CONC 30.6 g/dL (33.0-35.0); MEAN CORPUSCULAR VOLUME 87.6 fL (80-100); MONOCYTES PERCENT AUTO 5.1 % (2-8); NEUTROPHILS PERCENT AUTO 62.5 % (42.2-75.2); PLATELET COUNT,PLT 714 10^3/uL (150-450); RED BLOOD CELL COUNT 3.39 10^6/uL (4.6-6.2); WHITE BLOOD CELL COUNT,WBC 11.9 10^3/uL (5.0-10.0)
[2023-07-21 06:49] LABS: ANION GAP 11.5 mEq/L (7-13); CALCIUM 8.9 mg/dL (8.5-10.1); CREATININE 1.01 mg/dL (0.70-1.30); EST CRCL DRUG DOSING (CG) 69.61 mL/min; POTASSIUM,K 4.5 mmol/L (3.5-5.1)
[2023-07-21] MEDS: Saccharomyces Boulardii (Probiotic) 250 MG Cap PO SCH ×2 (09:21→21:39)
[2023-07-21] MEDS: Gabapentin 400 MG Cap PO SCH ×3 (09:21→21:40)
[2023-07-21] MEDS: Famotidine 20 MG Tab PO SCH ×2 (09:21→21:40)
[2023-07-21] MEDS: Magnesium Oxide 400 MG Tab PO SCH (09:22)
[2023-07-21] MEDS: Multivitamin Tab PO SCH (09:22)
[2023-07-21] MEDS: Tolterodine 2 MG Cap.ER PO SCH (09:22)
[2023-07-21] MEDS: Vancomycin 125 MG Cap PO SCH ×4 (09:22→21:38)
[2023-07-21] MEDS: Thiamine 100 MG Tab PO SCH (09:23)
[2023-07-21] MEDS: Insulin Glarg,Human.Rec.Analog 100 Unit/ML 10 ML Vial SUBCUT SCH ×2 (09:24→21:37)
[2023-07-21] MEDS: Cefepime 2 GM Vial IVPUSH SCH ×2 (09:24→21:38)
[2023-07-21] MEDS: Folic Acid 1 MG Tab PO SCH (09:27)
[2023-07-21] MEDS: Insulin Lispro 100 Units/ML 3 ML Vial SUBCUT SCH ×3 (09:27→17:44)
[2023-07-21] MEDS: Lisinopril 20 MG Tab PO SCH ×2 (09:28→11:44)
[2023-07-21] MEDS: Midodrine 5 MG Tab PO PRN (21:38)
[2023-07-21] MEDS: LORazepam 1 MG Tab PO PRN (21:39)
[2023-07-21] MEDS: Mirtazapine 15 MG Tab PO SCH (21:40)
[2023-07-21] MEDS: OLANZapine 5 MG Tab PO SCH (21:40)
[2023-07-22] MEDS: Insulin Lispro 100 Units/ML 3 ML Vial SUBCUT SCH ×3 (08:44→16:35)
[2023-07-22] MEDS: Famotidine 20 MG Tab PO SCH ×2 (08:46→22:05)
[2023-07-22] MEDS: Lisinopril 20 MG Tab PO SCH (08:48)
[2023-07-22] MEDS: Multivitamin Tab PO SCH (08:49)
[2023-07-22] MEDS: Magnesium Oxide 400 MG Tab PO SCH (08:49)
[2023-07-22] MEDS: Tolterodine 2 MG Cap.ER PO SCH (08:49)
[2023-07-22] MEDS: Thiamine 100 MG Tab PO SCH (08:49)
[2023-07-22] MEDS: Gabapentin 400 MG Cap PO SCH ×3 (08:49→22:05)
[2023-07-22] MEDS: Vancomycin 125 MG Cap PO SCH ×4 (08:49→22:05)
[2023-07-22] MEDS: Folic Acid 1 MG Tab PO SCH (08:49)
[2023-07-22] MEDS: Saccharomyces Boulardii (Probiotic) 250 MG Cap PO SCH ×2 (08:49→22:04)
[2023-07-22] MEDS: Cefepime 2 GM Vial IVPUSH SCH ×2 (08:54→22:08)
[2023-07-22] MEDS: Insulin Glarg,Human.Rec.Analog 100 Unit/ML 10 ML Vial SUBCUT SCH ×2 (08:59→22:09)
[2023-07-22] MEDS: OLANZapine 5 MG Tab PO SCH (22:04)
[2023-07-22] MEDS: Mirtazapine 15 MG Tab PO SCH (22:05)
[2023-07-22] MEDS: LORazepam 1 MG Tab PO PRN (22:05)
[2023-07-23] MEDS: Insulin Lispro 100 Units/ML 3 ML Vial SUBCUT SCH ×3 (09:05→17:11)
[2023-07-23] MEDS: Folic Acid 1 MG Tab PO SCH (09:06)
[2023-07-23] MEDS: Multivitamin Tab PO SCH (09:06)
[2023-07-23] MEDS: Tolterodine 2 MG Cap.ER PO SCH (09:06)
[2023-07-23] MEDS: Saccharomyces Boulardii (Probiotic) 250 MG Cap PO SCH ×2 (09:06→20:40)
[2023-07-23] MEDS: Thiamine 100 MG Tab PO SCH (09:06)
[2023-07-23] MEDS: Vancomycin 125 MG Cap PO SCH ×4 (09:06→20:39)
[2023-07-23] MEDS: Lisinopril 20 MG Tab PO SCH (09:06)
[2023-07-23] MEDS: Cefepime 2 GM Vial IVPUSH SCH (09:07)
[2023-07-23] MEDS: Insulin Glarg,Human.Rec.Analog 100 Unit/ML 10 ML Vial SUBCUT SCH ×2 (09:07→21:23)
[2023-07-23] MEDS: Magnesium Oxide 400 MG Tab PO SCH (09:07)
[2023-07-23] MEDS: Famotidine 20 MG Tab PO SCH ×2 (09:07→20:39)
[2023-07-23] MEDS: Gabapentin 400 MG Cap PO SCH ×3 (09:07→20:40)
[2023-07-23] MEDS: Mirtazapine 15 MG Tab PO SCH (20:40)
[2023-07-23] MEDS: OLANZapine 5 MG Tab PO SCH (20:40)
[2023-07-24] MEDS: Acetaminophen/oxyCODONE 325-5 MG Tab PO PRN ×2 (02:01→21:48)
[2023-07-24] MEDS: Thiamine 100 MG Tab PO SCH (08:44)
[2023-07-24] MEDS: Gabapentin 400 MG Cap PO SCH ×3 (08:44→21:48)
[2023-07-24] MEDS: Magnesium Oxide 400 MG Tab PO SCH (08:44)
[2023-07-24] MEDS: Tolterodine 2 MG Cap.ER PO SCH (08:44)
[2023-07-24] MEDS: Insulin Lispro 100 Units/ML 3 ML Vial SUBCUT SCH ×3 (08:44→16:48)
[2023-07-24] MEDS: Famotidine 20 MG Tab PO SCH ×2 (08:44→21:48)
[2023-07-24] MEDS: Lisinopril 20 MG Tab PO SCH (08:44)
[2023-07-24] MEDS: Insulin Glarg,Human.Rec.Analog 100 Unit/ML 10 ML Vial SUBCUT SCH ×2 (08:44→22:22)
[2023-07-24] MEDS: Saccharomyces Boulardii (Probiotic) 250 MG Cap PO SCH ×2 (08:44→21:48)
[2023-07-24] MEDS: Folic Acid 1 MG Tab PO SCH (08:44)
[2023-07-24] MEDS: Multivitamin Tab PO SCH (08:44)
[2023-07-24] MEDS: Vancomycin 125 MG Cap PO SCH ×4 (08:44→21:48)
[2023-07-24] MEDS: Mirtazapine 15 MG Tab PO SCH (21:48)
[2023-07-24] MEDS: OLANZapine 5 MG Tab PO SCH (21:48)
[2023-07-24] MEDS: LORazepam 1 MG Tab PO PRN (22:22)
[2023-07-25] MEDS: Acetaminophen/oxyCODONE 325-5 MG Tab PO PRN ×3 (05:43→20:56)
[2023-07-25] MEDS: Famotidine 20 MG Tab PO SCH ×2 (09:05→20:42)
[2023-07-25] MEDS: Folic Acid 1 MG Tab PO SCH (09:05)
[2023-07-25] MEDS: Insulin Lispro 100 Units/ML 3 ML Vial SUBCUT SCH ×3 (09:05→16:49)
[2023-07-25] MEDS: Tolterodine 2 MG Cap.ER PO SCH (09:05)
[2023-07-25] MEDS: Saccharomyces Boulardii (Probiotic) 250 MG Cap PO SCH ×2 (09:06→20:42)
[2023-07-25] MEDS: Vancomycin 125 MG Cap PO SCH (09:06)
[2023-07-25] MEDS: Magnesium Oxide 400 MG Tab PO SCH (09:06)
[2023-07-25] MEDS: Multivitamin Tab PO SCH (09:06)
[2023-07-25] MEDS: Gabapentin 400 MG Cap PO SCH ×3 (09:06→20:42)
[2023-07-25] MEDS: Thiamine 100 MG Tab PO SCH (09:06)
[2023-07-25] MEDS: Lisinopril 20 MG Tab PO SCH (09:07)
[2023-07-25] MEDS: Insulin Glarg,Human.Rec.Analog 100 Unit/ML 10 ML Vial SUBCUT SCH ×2 (09:08→20:54)
[2023-07-25] MEDS: LORazepam 1 MG Tab PO PRN (20:41)
[2023-07-25] MEDS: Mirtazapine 15 MG Tab PO SCH (20:41)
[2023-07-25] MEDS: OLANZapine 5 MG Tab PO SCH (20:42)
[2023-07-26] MEDS: Acetaminophen/oxyCODONE 325-5 MG Tab PO PRN ×2 (03:15→19:19)
[2023-07-26] MEDS: Insulin Lispro 100 Units/ML 3 ML Vial SUBCUT SCH ×3 (08:15→16:56)
[2023-07-26] MEDS: Lisinopril 20 MG Tab PO SCH (08:15)
[2023-07-26] MEDS: Insulin Glarg,Human.Rec.Analog 100 Unit/ML 10 ML Vial SUBCUT SCH ×2 (08:15→21:56)
[2023-07-26] MEDS: Thiamine 100 MG Tab PO SCH (08:16)
[2023-07-26] MEDS: Tolterodine 2 MG Cap.ER PO SCH (08:16)
[2023-07-26] MEDS: Famotidine 20 MG Tab PO SCH ×2 (08:16→21:58)
[2023-07-26] MEDS: Gabapentin 400 MG Cap PO SCH ×3 (08:16→21:58)
[2023-07-26] MEDS: Saccharomyces Boulardii (Probiotic) 250 MG Cap PO SCH ×2 (08:16→21:57)
[2023-07-26] MEDS: Multivitamin Tab PO SCH (08:16)
[2023-07-26] MEDS: Magnesium Oxide 400 MG Tab PO SCH (08:17)
[2023-07-26] MEDS: Folic Acid 1 MG Tab PO SCH (08:17)
[2023-07-26] MEDS: LORazepam 1 MG Tab PO PRN (21:57)
[2023-07-26] MEDS: OLANZapine 5 MG Tab PO SCH (21:58)
[2023-07-26] MEDS: Mirtazapine 15 MG Tab PO SCH (21:58)
[2023-07-27] MEDS: Acetaminophen/oxyCODONE 325-5 MG Tab PO PRN ×2 (01:11→05:16)
[2023-07-27] MEDS: Insulin Glarg,Human.Rec.Analog 100 Unit/ML 10 ML Vial SUBCUT SCH ×2 (08:08→22:15)
[2023-07-27] MEDS: Insulin Lispro 100 Units/ML 3 ML Vial SUBCUT SCH ×3 (08:09→17:02)
[2023-07-27] MEDS: Saccharomyces Boulardii (Probiotic) 250 MG Cap PO SCH ×2 (08:13→22:06)
[2023-07-27] MEDS: Gabapentin 400 MG Cap PO SCH ×3 (08:13→22:06)
[2023-07-27] MEDS: Thiamine 100 MG Tab PO SCH (08:14)
[2023-07-27] MEDS: Folic Acid 1 MG Tab PO SCH (08:23)
[2023-07-27] MEDS: Famotidine 20 MG Tab PO SCH ×2 (08:23→22:06)
[2023-07-27] MEDS: Lisinopril 20 MG Tab PO SCH (08:23)
[2023-07-27] MEDS: Magnesium Oxide 400 MG Tab PO SCH (08:23)
[2023-07-27] MEDS: Multivitamin Tab PO SCH (08:23)
[2023-07-27] MEDS: Tolterodine 2 MG Cap.ER PO SCH (08:23)
[2023-07-27] MEDS: Midodrine 5 MG Tab PO PRN (08:24)
[2023-07-27] MEDS: Mirtazapine 15 MG Tab PO SCH (22:06)
[2023-07-27] MEDS: Acetaminophen 325 MG Tab PO PRN (22:07)
[2023-07-27] MEDS: OLANZapine 5 MG Tab PO SCH (22:08)
[2023-07-28] MEDS: Acetaminophen/oxyCODONE 325-5 MG Tab PO PRN ×5 (02:11→23:37)
[2023-07-28 06:14] LABS: BASOPHILS PERCENT AUTO 0.9 % (0.0-1.0); EOSINOPHILS PERCENT AUTO 7.9 % (1.0-3.0); HEMATOCRIT 30.2 % (40.0-54.0); HEMOGLOBIN 9.1 g/dL (14.0-18.0); LYMPHOCYTES PERCENT AUTO 33.1 % (20.5-50.1); MEAN CORPUSCULAR HEMOGLOBIN 26.4 pg (27.0-34.0); MEAN CORPUSCULAR HGB CONC 30.1 g/dL (33.0-35.0); MEAN CORPUSCULAR VOLUME 87.5 fL (80-100); MONOCYTES PERCENT AUTO 7.4 % (2-8); NEUTROPHILS PERCENT AUTO 50.7 % (42.2-75.2); PLATELET COUNT,PLT 610 10^3/uL (150-450); RED BLOOD CELL COUNT 3.45 10^6/uL (4.6-6.2); WHITE BLOOD CELL COUNT,WBC 9.3 10^3/uL (5.0-10.0)
[2023-07-28 06:34] LABS: ALBUMIN 2.5 g/dL (3.4-5.0); ANION GAP 9.8 mEq/L (7-13); BILIRUBIN TOTAL 0.2 mg/dL (0.2-1.0); CALCIUM 8.8 mg/dL (8.5-10.1); CREATININE 1.42 mg/dL (0.70-1.30); EST CRCL DRUG DOSING (CG) 50.38 mL/min; POTASSIUM,K 4.8 mmol/L (3.5-5.1); PROTEIN TOTAL,TP 7.7 g/dL (6.4-8.2)
[2023-07-28 06:41] LABS: A/G RATIO 0.48
[2023-07-28] MEDS: Lisinopril 20 MG Tab PO SCH (08:04)
[2023-07-28] MEDS: Magnesium Oxide 400 MG Tab PO SCH (08:04)
[2023-07-28] MEDS: Tolterodine 2 MG Cap.ER PO SCH (08:05)
[2023-07-28] MEDS: Saccharomyces Boulardii (Probiotic) 250 MG Cap PO SCH ×2 (08:05→21:52)
[2023-07-28] MEDS: Thiamine 100 MG Tab PO SCH (08:05)
[2023-07-28] MEDS: Famotidine 20 MG Tab PO SCH ×2 (08:05→21:51)
[2023-07-28] MEDS: Gabapentin 400 MG Cap PO SCH ×3 (08:05→21:52)
[2023-07-28] MEDS: Folic Acid 1 MG Tab PO SCH (08:05)
[2023-07-28] MEDS: Multivitamin Tab PO SCH (08:05)
[2023-07-28] MEDS: Insulin Glarg,Human.Rec.Analog 100 Unit/ML 10 ML Vial SUBCUT SCH ×2 (08:06→22:02)
[2023-07-28] MEDS: Insulin Lispro 100 Units/ML 3 ML Vial SUBCUT SCH ×3 (08:06→17:05)
[2023-07-28] MEDS ORDERED: Sodium Chloride 0.9% 1,000 ML IV SCH (12:00)
[2023-07-28] MEDS: Midodrine 5 MG Tab PO PRN (19:34)
[2023-07-28] MEDS: Mirtazapine 15 MG Tab PO SCH (21:51)
[2023-07-28] MEDS: OLANZapine 5 MG Tab PO SCH (21:52)
[2023-07-28] MEDS: Sodium Chloride 0.9% 10 ML Syringe FLUSH SCH (21:54)
[2023-07-28] MEDS: LORazepam 1 MG Tab PO PRN (23:37)
[2023-07-29] MEDS: Acetaminophen/oxyCODONE 325-5 MG Tab PO PRN ×3 (05:03→20:50)
[2023-07-29] MEDS: Famotidine 20 MG Tab PO SCH ×2 (08:14→20:51)
[2023-07-29] MEDS: Magnesium Oxide 400 MG Tab PO SCH (08:14)
[2023-07-29] MEDS: Saccharomyces Boulardii (Probiotic) 250 MG Cap PO SCH ×2 (08:14→20:49)
[2023-07-29] MEDS: Thiamine 100 MG Tab PO SCH (08:14)
[2023-07-29] MEDS: Gabapentin 400 MG Cap PO SCH ×3 (08:14→20:49)
[2023-07-29] MEDS: Multivitamin Tab PO SCH (08:14)
[2023-07-29] MEDS: Lisinopril 20 MG Tab PO SCH (08:14)
[2023-07-29] MEDS: Tolterodine 2 MG Cap.ER PO SCH (08:14)
[2023-07-29] MEDS: Acetaminophen 325 MG Tab PO PRN (08:15)
[2023-07-29] MEDS: Sodium Chloride 0.9% 10 ML Syringe FLUSH SCH ×2 (08:16→20:53)
[2023-07-29] MEDS: Folic Acid 1 MG Tab PO SCH (08:16)
[2023-07-29] MEDS: Insulin Lispro 100 Units/ML 3 ML Vial SUBCUT SCH ×3 (08:19→17:30)
[2023-07-29] MEDS: Insulin Glarg,Human.Rec.Analog 100 Unit/ML 10 ML Vial SUBCUT SCH ×2 (08:21→20:44)
[2023-07-29] MEDS: LORazepam 1 MG Tab PO PRN (20:50)
[2023-07-29] MEDS: OLANZapine 5 MG Tab PO SCH (20:51)
[2023-07-29] MEDS: Mirtazapine 15 MG Tab PO SCH (20:51)
[2023-07-30] MEDS: Acetaminophen/oxyCODONE 325-5 MG Tab PO PRN (03:29)
[2023-07-30] MEDS: Gabapentin 400 MG Cap PO SCH (08:42)
[2023-07-30] MEDS: Folic Acid 1 MG Tab PO SCH (08:42)
[2023-07-30] MEDS: Famotidine 20 MG Tab PO SCH (08:42)
[2023-07-30] MEDS: Thiamine 100 MG Tab PO SCH (08:42)
[2023-07-30] MEDS: Saccharomyces Boulardii (Probiotic) 250 MG Cap PO SCH (08:42)
[2023-07-30] MEDS: Insulin Lispro 100 Units/ML 3 ML Vial SUBCUT SCH (08:43)
[2023-07-30] MEDS: Insulin Glarg,Human.Rec.Analog 100 Unit/ML 10 ML Vial SUBCUT SCH (08:43)
[2023-07-30] MEDS: Multivitamin Tab PO SCH (08:43)
[2023-07-30 08:48] VITALS: BP 96/57; PULSE 89
[2023-07-30] MEDS: Lisinopril 20 MG Tab PO SCH (08:49)
[2023-07-30] MEDS: Tolterodine 2 MG Cap.ER PO SCH (08:49)
[2023-07-30] MEDS: Sodium Chloride 0.9% 10 ML Syringe FLUSH SCH (09:02)
== END 2023-07-30 11:13 | disposition home or self-care (01) | DRG 948 ==
LOC: DL.MS 07-17 14:38
PROVIDERS: ADMIT Internal Medicine; ATTEND Internal Medicine
DX: R53.1 Weakness (principal); T83.510A Infection and inflammatory reaction due to cystostomy catheter, initial encounter; A04.72 Enterocolitis due to Clostridium difficile, not specified as recurrent; I10 Essential (primary) hypertension; J44.9 Chronic obstructive pulmonary disease, unspecified; K21.9 Gastro-esophageal reflux disease without esophagitis; E11.42 Type 2 diabetes mellitus with diabetic polyneuropathy; F17.210 Nicotine dependence, cigarettes, uncomplicated; F15.10 Other stimulant abuse, uncomplicated; N40.1 Benign prostatic hyperplasia with lower urinary tract symptoms; F41.9 Anxiety disorder, unspecified; E78.00 Pure hypercholesterolemia, unspecified; N31.9 Neuromuscular dysfunction of bladder, unspecified; Z91.148 Patient's other noncompliance with medication regimen for other reason; Z79.899 Other long term (current) drug therapy; Z79.4 Long term (current) use of insulin; Z98.890 Other specified postprocedural states
CPT/HCPCS: 36415; 74176; 80048; 80053; 81001; 82947; 83735; 85025; 87086; 97110-GO; 97110-GP; 97116-GP; 97161-GP; 97165-GO; 97530-GO; 97530-GP; A9270-GY; J0692; J3490; J7030

== ENCOUNTER 2023-08-06 02:38 | Emergency (ER) | payer MEDICAID ==
[2023-08-06 01:33] VITALS: PULSE 102
[2023-08-06 01:34] LABS: BASOPHILS PERCENT AUTO 0.3 % (0.0-1.0); EOSINOPHILS PERCENT AUTO 4.7 % (1.0-3.0); HEMATOCRIT 35.1 % (40.0-54.0); HEMOGLOBIN 11.1 g/dL (14.0-18.0); LYMPHOCYTES PERCENT AUTO 19.8 % (20.5-50.1); MEAN CORPUSCULAR HEMOGLOBIN 26.5 pg (27.0-34.0); MEAN CORPUSCULAR HGB CONC 31.6 g/dL (33.0-35.0); MEAN CORPUSCULAR VOLUME 83.8 fL (80-100); MONOCYTES PERCENT AUTO 7.9 % (2-8); NEUTROPHILS PERCENT AUTO 67.3 % (42.2-75.2); PLATELET COUNT,PLT 400 10^3/uL (150-450); RED BLOOD CELL COUNT 4.19 10^6/uL (4.6-6.2); WHITE BLOOD CELL COUNT,WBC 11.5 10^3/uL (5.0-10.0)
[2023-08-06 01:55] LABS: ALANINE AMINOTRANSFERASE,ALT 42 U/L (16-63); ALKALINE PHOSPHATASE 155 U/L (46-116); AMYLASE 16 U/L (25-115); ANION GAP 14.3 mEq/L (7-13); ASPARTATE AMNIOTRANSFERASE,AST 10 U/L (15-37); BILIRUBIN TOTAL 0.4 mg/dL (0.2-1.0); BLOOD UREA NITROGEN,BUN 30 mg/dL (7-18); BUN/CREATININE RATIO 25.9 (No establ ref range); C-REACTIVE PROTEIN 4.89 ng/dL (<=0.50); CALCIUM 9.1 mg/dL (8.5-10.1); CARBON DIOXIDE,CO2 23 mmol/L (21-32); CHLORIDE,CL 102 mmol/L (98-107); CREATININE 1.16 mg/dL (0.70-1.30); EST CRCL DRUG DOSING (CG) 70.21 mL/min; GLUCOSE RANDOM 115 mg/dL (70-99); LIPASE 22 U/L (16-77); POTASSIUM,K 3.3 mmol/L (3.5-5.1); PROTEIN TOTAL,TP 8.4 g/dL (6.4-8.2); SODIUM,NA 136 mmol/L (136-145)
[2023-08-06 01:58] LABS: A/G RATIO 0.56; ESTIMATED GFR 78 mL/min (>=60); ETHANOL BLOOD MEDICAL < 3 mg/dL (0); LACTIC ACID 0.9 mmol/L (0.4-2.0)
[2023-08-06 02:17] VITALS: BP 120/89
[2023-08-06 02:18] LABS: APPEARANCE,URINE CLOUDY (CLEAR); BILIRUBIN,URINE NEGATIVE (NEGATIVE); COLOR,URINE YELLOW (YELLOW); GLUCOSE,URINE NEGATIVE (NEGATIVE); KETONES,URINE 15 (NEGATIVE); LEUKOCYTE ESTERASE,URINE LARGE (NEGATIVE); NITRITE,URINE POSITIVE (NEGATIVE); OCCULT BLOOD,URINE MODERATE (NEGATIVE); PROTEIN,URINE >=300 (NEGATIVE); UROBILINOGEN,URINE 0.2 mg/dL (0.2-1.0)
[2023-08-06 02:22] LABS: AMPHETAMINES,URINE NEGATIVE (NEGATIVE); BARBITURATES,URINE NEGATIVE (NEGATIVE); BENZODIAZEPINE,URINE NEGATIVE (NEGATIVE); MDMA (ECSTASY), URINE NEGATIVE (NEGATIVE); METHADONE,URINE NEGATIVE (NEGATIVE); METHAMPHETAMINES,URINE NEGATIVE (NEGATIVE); OPIATES,URINE NEGATIVE (NEGATIVE); OXYCODONE,URINE NEGATIVE (NEGATIVE); PHENCYCLIDINE,URINE NEGATIVE (NEGATIVE); TCA,URINE NEGATIVE (NEGATIVE)
[2023-08-06 02:25] LABS: BACTERIA,URINE MANY /HPF (0-FEW/HPF); EPITHELIAL CELLS,URINE FEW /HPF (NOT SEEN); WBC,URINE >100 /HPF (0-5/HPF)
[~2023-08-06 02:38] MED LIST changes: +Ciprofloxacin 500 MG Tab PO ONE; +Ketorolac 30 MG/ML SDV IVPUSH ONE; -Sodium Chloride 0.9% 1,000 ML IV ONE; +Vancomycin 125 MG Cap PO ONE
== END 2023-08-06 03:14 | disposition home or self-care (01) ==
LOC: DL.ED 02:38
DX: A04.72 Enterocolitis due to Clostridium difficile, not specified as recurrent (principal); N39.0 Urinary tract infection, site not specified; N30.00 Acute cystitis without hematuria; I10 Essential (primary) hypertension; K21.9 Gastro-esophageal reflux disease without esophagitis; E10.9 Type 1 diabetes mellitus without complications; Z79.899 Other long term (current) drug therapy; Z79.4 Long term (current) use of insulin
CPT/HCPCS: 36415; 80053; 80305; 80307; 81001; 82150; 83605; 83690; 85025; 86140; 87086; 87088; 87186; 96374; 99284; A9270; J1885; J3490

== ENCOUNTER 2023-08-31 22:27 | Emergency (ER) | payer MEDICAID ==
[2023-08-31] MEDS ORDERED: Aspirin 81 MG Tab.Chew PO ONE (22:34)
[2023-08-31] MEDS ORDERED: Sodium Chloride 0.9% 10 ML Syringe FLUSH PRN (22:34)
[2023-08-31] MEDS ORDERED: Lactated Ringers 1,000 ML IV SCH (22:45)
[2023-08-31 22:52] LABS: BASOPHILS PERCENT AUTO 0.1 % (0.0-1.0); HEMATOCRIT 28.8 % (40.0-54.0); HEMOGLOBIN 9.3 g/dL (14.0-18.0); LYMPHOCYTES PERCENT AUTO 5.6 % (20.5-50.1); MEAN CORPUSCULAR HEMOGLOBIN 25.9 pg (27.0-34.0); MEAN CORPUSCULAR HGB CONC 32.3 g/dL (33.0-35.0); MEAN CORPUSCULAR VOLUME 80.2 fL (80-100); MONOCYTES PERCENT AUTO 3.3 % (2-8); PLATELET COUNT,PLT 474 10^3/uL (150-450); RED BLOOD CELL COUNT 3.59 10^6/uL (4.6-6.2); WHITE BLOOD CELL COUNT,WBC 29.1 10^3/uL (5.0-10.0)
[2023-08-31] MEDS ORDERED: cefTRIAXone 2 GM Vial IV ONE (22:53)
[2023-08-31 23:19] LABS: APPEARANCE,URINE CLOUDY (CLEAR); BILIRUBIN,URINE NEGATIVE (NEGATIVE); COLOR,URINE YELLOW (YELLOW); GLUCOSE,URINE NEGATIVE (NEGATIVE); KETONES,URINE TRACE (NEGATIVE); LEUKOCYTE ESTERASE,URINE SMALL (NEGATIVE); NITRITE,URINE NEGATIVE (NEGATIVE); OCCULT BLOOD,URINE MODERATE (NEGATIVE); PH,URINE 5.5 (5.0-9.0); PROTEIN,URINE 100 (NEGATIVE); UROBILINOGEN,URINE 0.2 mg/dL (0.2-1.0)
[2023-08-31 23:25] LABS: ANION GAP 9.9 mEq/L (7-13); BILIRUBIN TOTAL 0.6 mg/dL (0.2-1.0); BUN/CREATININE RATIO 20.1 (No establ ref range); CALCIUM 8.3 mg/dL (8.5-10.1); MAGNESIUM 1.4 mg/dL (1.8-2.4); POTASSIUM,K 3.9 mmol/L (3.5-5.1); PROTEIN TOTAL,TP 7.2 g/dL (6.4-8.2)
[2023-08-31 23:26] LABS: A/G RATIO 0.38; CREATININE 1.74 mg/dL (0.70-1.30); EST CRCL DRUG DOSING (CG) 44.75 mL/min
[2023-08-31] MEDS ORDERED: Magnesium Sulfate/Water 2 GM in Premix Bag 1 BAG IV ONE (23:27)
[2023-08-31 23:29] LABS: BACTERIA,URINE MANY /HPF (0-FEW/HPF); EPITHELIAL CELLS,URINE FEW /HPF (NOT SEEN); WBC,URINE PACKED /HPF (0-5/HPF)
[2023-08-31 23:30] LABS: LACTIC ACID 1.7 mmol/L (0.4-2.0)
[2023-08-31 23:34] LABS: PROTHROMBIN TIME 10.6 SEC (9.0-12.0); PTT,PARTIAL THROMBOPLSTIN TIME 39.4 SEC (22.0-34.0)
[2023-08-31 23:36] LABS: AMPHETAMINES,URINE NEGATIVE (NEGATIVE); BARBITURATES,URINE NEGATIVE (NEGATIVE); BENZODIAZEPINE,URINE NEGATIVE (NEGATIVE); MDMA (ECSTASY), URINE NEGATIVE (NEGATIVE); METHADONE,URINE NEGATIVE (NEGATIVE); METHAMPHETAMINES,URINE NEGATIVE (NEGATIVE); OPIATES,URINE NEGATIVE (NEGATIVE); OXYCODONE,URINE NEGATIVE (NEGATIVE); PHENCYCLIDINE,URINE NEGATIVE (NEGATIVE); TCA,URINE NEGATIVE (NEGATIVE)
[2023-08-31 23:42] LABS: HEMOGLOBIN A1C 6.9 % (<5.7)
[2023-09-01] MEDS ORDERED: Gabapentin 300 MG Cap PO ONE (00:56)
[2023-09-01] MEDS ORDERED: Lactated Ringers 1,000 ML IV SCH (01:00)
[2023-09-01] MEDS ORDERED: Insulin Glarg,Human.Rec.Analog 100 Unit/ML 10 ML Vial SUBCUT ONE (02:43)
[2023-09-01] MEDS ORDERED: Glucagon,Human Recombinant 1 MG Vial IM PRN ×5 (02:43→17:26)
[2023-09-01] MEDS ORDERED: 50% Dextrose in Water 50 ML Syringe IVPUSH PRN ×5 (02:43→17:26)
[2023-09-01] MEDS: Doxycycline Monohydrate 100 MG Cap PO SCH ×3 (05:43→21:05)
[2023-09-01] MEDS ORDERED: oxyCODONE 5 MG Tab PO ONE ×2 (14:02→18:19)
[2023-09-01] MEDS ORDERED: Insulin Lispro 100 Units/ML 3 ML Vial SUBCUT ONE ×4 (17:02→17:26)
[2023-09-01] MEDS ORDERED: cefTRIAXone 2 GM Vial IVPUSH ONE (18:41)
[2023-09-01 22:13] LABS: ANION GAP 8.1 mEq/L (7-13); POTASSIUM,K 3.5 mmol/L (3.5-5.1)
[2023-09-01 22:14] LABS: CALCIUM 8.1 mg/dL (8.5-10.1); CREATININE 1.23 mg/dL (0.70-1.30); EST CRCL DRUG DOSING (CG) 63.3 mL/min
[2023-09-01 22:28] LABS: MEAN CORPUSCULAR HEMOGLOBIN 25.8 pg (27.0-34.0); MEAN CORPUSCULAR HGB CONC 32.3 g/dL (33.0-35.0); MEAN CORPUSCULAR VOLUME 80.1 fL (80-100); RED BLOOD CELL COUNT 3.87 10^6/uL (4.6-6.2); WHITE BLOOD CELL COUNT,WBC 24.2 10^3/uL (5.0-10.0)
[2023-09-01 22:29] LABS: BASOPHILS PERCENT AUTO 0.1 % (0.0-1.0); EOSINOPHILS PERCENT AUTO 0.2 % (1.0-3.0); LYMPHOCYTES PERCENT AUTO 6.4 % (20.5-50.1); MONOCYTES PERCENT AUTO 3.8 % (2-8); NEUTROPHILS PERCENT AUTO 89.5 % (42.2-75.2); PLATELET COUNT,PLT 449 10^3/uL (150-450)
[2023-09-01 23:42] LABS: LYMPHOCYTES PERCENT MAN 5 % (20-50); MONOCYTES PERCENT MAN 1 % (2-8); SEG NEUTROPHILS PERCENT MAN 94 % (42-75)
[2023-09-02] MEDS ORDERED: LORazepam 1 MG Tab PO ONE (05:51)
[2023-09-02 08:20] VITALS: BP 123/81; PULSE 89
[2023-09-02] MEDS: Doxycycline Monohydrate 100 MG Cap PO SCH (08:47)
[2023-09-02] MEDS ORDERED: Morphine 4 MG/ML Syringe IVPUSH ONE (09:55)
== END 2023-09-02 10:16 | disposition other institution (70) ==
LOC: DL.ED 22:27
DX: E11.621 Type 2 diabetes mellitus with foot ulcer (principal); L97.529 Non-pressure chronic ulcer of other part of left foot with unspecified severity; N17.9 Acute kidney failure, unspecified; E87.1 Hypo-osmolality and hyponatremia; R62.7 Adult failure to thrive; I10 Essential (primary) hypertension; E78.00 Pure hypercholesterolemia, unspecified; J44.9 Chronic obstructive pulmonary disease, unspecified; K21.9 Gastro-esophageal reflux disease without esophagitis; Z87.891 Personal history of nicotine dependence; Z79.4 Long term (current) use of insulin; Z79.899 Other long term (current) drug therapy
CPT/HCPCS: 36415; 51702; 71045; 76870; 80048; 80053; 80305-QW; 81001; 82947; 83036; 83605; 83735; 83880; 84484; 85025; 85610; 85730; 87040; 87077; 87086; 87088; 87186; 93005; 93010; 94762; 96365; 96366; 96368; 96375; 96376; 99285; 99285-25; A9270-GY; J0696; J1815-GY; J2270; J3370; J3475; J3490; J7050; J7120

== ENCOUNTER 2023-10-07 23:13 | Emergency (ER) | payer MEDICAID ==
[2023-10-07 22:59] VITALS: BP 182/99; PULSE 99
[2023-10-07 23:18] LABS: HEMATOCRIT 33.3 % (40.0-54.0); HEMOGLOBIN 10.7 g/dL (14.0-18.0); MEAN CORPUSCULAR HEMOGLOBIN 27.7 pg (27.0-34.0); MEAN CORPUSCULAR HGB CONC 32.1 g/dL (33.0-35.0); MEAN CORPUSCULAR VOLUME 86.3 fL (80-100); PLATELET COUNT,PLT 572 10^3/uL (150-450); RED BLOOD CELL COUNT 3.86 10^6/uL (4.6-6.2); WHITE BLOOD CELL COUNT,WBC 12.3 10^3/uL (5.0-10.0)
[2023-10-07 23:22] LABS: BASOPHILS PERCENT AUTO 1.2 % (0.0-1.0); EOSINOPHILS PERCENT AUTO 2.9 % (1.0-3.0); LYMPHOCYTES PERCENT AUTO 22.2 % (20.5-50.1); MONOCYTES PERCENT AUTO 4.1 % (2-8); NEUTROPHILS PERCENT AUTO 69.6 % (42.2-75.2)
[2023-10-07] MEDS ORDERED: Ketorolac 30 MG/ML SDV IVPUSH ONE (23:26)
[2023-10-07 23:27] LABS: A/G RATIO 0.6; ALANINE AMINOTRANSFERASE,ALT 49 U/L (16-63); ALBUMIN 3.5 g/dL (3.4-5.0); ALKALINE PHOSPHATASE 156 U/L (46-116); ANION GAP 16.8 mEq/L (7-13); ASPARTATE AMNIOTRANSFERASE,AST 16 U/L (15-37); BILIRUBIN TOTAL 0.5 mg/dL (0.2-1.0); BLOOD UREA NITROGEN,BUN 25 mg/dL (7-18); C-REACTIVE PROTEIN 11.34 ng/dL (<=0.50); CALCIUM 9.7 mg/dL (8.5-10.1); CARBON DIOXIDE,CO2 25 mmol/L (21-32); CHLORIDE,CL 99 mmol/L (98-107); CREATININE 1.04 mg/dL (0.70-1.30); GLUCOSE RANDOM 106 mg/dL (70-99); POTASSIUM,K 3.8 mmol/L (3.5-5.1); SODIUM,NA 137 mmol/L (136-145)
[2023-10-07 23:37] LABS: ESTIMATED GFR 89 mL/min (>=60)
[2023-10-07] MEDS ORDERED: Sodium Chloride 0.9% 1,000 ML IV ONE (23:42)
[2023-10-07 23:51] LABS: BAND PERCENT MAN 1 %; EOSINOPHILS PERCENT MAN 1 % (1-3); LYMPHOCYTES PERCENT MAN 24 % (20-50); MONOCYTES PERCENT MAN 4 % (2-8); NRBC MANUAL 2 /100WBC; SEG NEUTROPHILS PERCENT MAN 70 % (42-75)
== END 2023-10-08 00:39 | disposition home or self-care (01) ==
LOC: DL.ED 23:13
DX: E86.0 Dehydration (principal); I10 Essential (primary) hypertension; E10.9 Type 1 diabetes mellitus without complications; K21.9 Gastro-esophageal reflux disease without esophagitis; J44.9 Chronic obstructive pulmonary disease, unspecified; Z91.148 Patient's other noncompliance with medication regimen for other reason; Z79.899 Other long term (current) drug therapy
CPT/HCPCS: 36415; 80053; 85025; 86140; 96361; 96374; 99283; 99284-25; J1885; J7030

== ENCOUNTER 2024-04-07 11:47 | Inpatient (IN) | payer BC, MEDICAID ==
[2024-04-07] MEDS: Sodium Chloride 0.9% 1,000 ML IV ONE ×2 (12:00→13:00)
[2024-04-07 12:33] LABS: BASOPHILS PERCENT AUTO 0.2 % (0.0-1.0); HEMATOCRIT 31.8 % (40.0-54.0); LYMPHOCYTES PERCENT AUTO 7.2 % (20.5-50.1); MEAN CORPUSCULAR HEMOGLOBIN 27.3 pg (27.0-34.0); MEAN CORPUSCULAR HGB CONC 31.4 g/dL (33.0-35.0); MEAN CORPUSCULAR VOLUME 86.9 fL (80-100); MONOCYTES PERCENT AUTO 7.4 % (2-8); NEUTROPHILS PERCENT AUTO 85.2 % (42.2-75.2); PLATELET COUNT,PLT 519 10^3/uL (150-450); RED BLOOD CELL COUNT 3.66 10^6/uL (4.6-6.2); WHITE BLOOD CELL COUNT,WBC 21.6 10^3/uL (5.0-10.0)
[2024-04-07] MEDS: Bacitracin Oint 1 GM U/D Packet TOP ONE (12:50)
[2024-04-07 12:51] LABS: LACTIC ACID 2.02 mmol/L (0.56-1.39)
[2024-04-07 13:01] LABS: APPEARANCE,URINE CLOUDY (CLEAR); BILIRUBIN,URINE NEGATIVE (NEGATIVE); COLOR,URINE YELLOW (YELLOW); GLUCOSE,URINE NEGATIVE (NEGATIVE); KETONES,URINE NEGATIVE (NEGATIVE); LEUKOCYTE ESTERASE,URINE LARGE (NEGATIVE); NITRITE,URINE NEGATIVE (NEGATIVE); OCCULT BLOOD,URINE MODERATE (NEGATIVE); PH,URINE 5.5 (5.0-9.0); PROTEIN,URINE 30 (NEGATIVE); UROBILINOGEN,URINE 0.2 mg/dL (0.2-1.0)
[2024-04-07] MEDS: Piperacillin/Tazobactam 4.5 GM in Sodium Chloride 0.9% 100 ML IV ONE (13:03)
[2024-04-07 13:07] LABS: AMPHETAMINES,URINE POSITIVE (NEGATIVE); BENZODIAZEPINE,URINE NEGATIVE (NEGATIVE); MDMA (ECSTASY), URINE NEGATIVE (NEGATIVE); METHADONE,URINE NEGATIVE (NEGATIVE); METHAMPHETAMINES,URINE POSITIVE (NEGATIVE); OPIATES,URINE NEGATIVE (NEGATIVE); TCA,URINE POSITIVE (NEGATIVE)
[2024-04-07 13:08] LABS: BARBITURATES,URINE NEGATIVE (NEGATIVE); OXYCODONE,URINE NEGATIVE (NEGATIVE); PHENCYCLIDINE,URINE NEGATIVE (NEGATIVE)
[2024-04-07 13:29] LABS: BACTERIA,URINE MODERATE /HPF (0-FEW/HPF); EPITHELIAL CELLS,URINE MODERATE /HPF (NOT SEEN); RBC,URINE 40-50 /HPF (0-5); WBC,URINE PACKED /HPF (0-5/HPF)
[2024-04-07 13:31] LABS: YEAST,URINE MANY /HPF (NOT SEEN)
[2024-04-07] MEDS: Vancomycin 1 GM SDV ONE (13:58)
[2024-04-07] MEDS: Vancomycin 2 GM in Sodium Chloride 0.9% 500 ML IV ONE (13:59)
[2024-04-07] MEDS ORDERED: Naloxone 2 MG/2 ML Syringe IVPUSH PRN (14:55)
[2024-04-07] MEDS ORDERED: Promethazine 25 MG/ML SDV IM PRN (14:55)
[2024-04-07] MEDS ORDERED: Zolpidem 5 MG Tab PO PRN (14:55)
[2024-04-07] MEDS ORDERED: Acetaminophen/HYDROcodone 325-5 MG Tab PO PRN (14:55)
[2024-04-07] MEDS ORDERED: Magnesium Hydroxide 400 MG/5 ML Susp 30 ML Cup PO PRN (14:55)
[2024-04-07] MEDS ORDERED: Ondansetron 4 MG/2 ML SDV IVPUSH PRN (14:55)
[2024-04-07] MEDS ORDERED: Sennosides/Docusate Sodium 50-8.6 MG Tab PO PRN (14:55)
[2024-04-07] MEDS ORDERED: Albuterol/Ipratropium 3.0-0.5 MG/3 ML Neb Soln NEB PRN (14:55)
[2024-04-07] MEDS ORDERED: Polyethylene Glycol 3350 Powder 17 GM Packet PO PRN (14:55)
[2024-04-07] MEDS ORDERED: HYDROmorphone 0.5 MG/0.5 ML Syringe IVPUSH PRN (14:55)
[2024-04-07] MEDS ORDERED: Glucagon,Human Recombinant 1 MG Vial IM PRN (14:59)
[2024-04-07] MEDS ORDERED: 50% Dextrose in Water 50 ML Syringe IVPUSH PRN (14:59)
[2024-04-07] MEDS ORDERED: traMADol 50 MG Tab PO PRN (15:02)
[2024-04-07] MEDS ORDERED: hydrOXYzine HCl 25 MG Tab PO PRN (15:06)
[2024-04-07 16:05] LABS: C-REACTIVE PROTEIN 12.48 ng/dL (<=0.50)
[2024-04-07] MEDS ORDERED: Lactated Ringers 1,000 ML IV SCH (17:00)
[2024-04-07] MEDS ORDERED: Lactated Ringers 2,000 ML IV SCH (17:00)
[2024-04-07] MEDS: Insulin Lispro 100 Units/ML 3 ML Vial SUBCUT SCH ×2 (17:35→22:38)
[2024-04-07] MEDS: Cefepime 2 GM in Sodium Chloride 0.9% 100 ML IV SCH (17:38)
[2024-04-07] MEDS: Lactated Ringers 1,000 ML IV SCH (17:39)
[2024-04-07 17:44] LABS: POTASSIUM,K 4.6 mmol/L (3.5-5.1)
[2024-04-07 17:45] LABS: ANION GAP 13.6 mEq/L (7-13)
[2024-04-07 17:46] LABS: BUN/CREATININE RATIO 17.5 (No establ ref range); EST CRCL DRUG DOSING (CG) 49.58 mL/min
[2024-04-07 17:54] LABS: A/G RATIO 0.6; ALBUMIN 2.8 g/dL (3.4-5.0); BILIRUBIN TOTAL 0.5 mg/dL (0.2-1.0); MAGNESIUM 1.8 mg/dL (1.8-2.4); PROTEIN TOTAL,TP 7.5 g/dL (6.4-8.2)
[2024-04-07] MEDS ORDERED: Aluminum Hydroxide/Magnesium Hydroxide/Simethicone Susp 30 ML Cup PO PRN (19:50)
[2024-04-07] MEDS: Midodrine 5 MG Tab PO ONE (20:29)
[2024-04-07] MEDS: Amitriptyline 25 MG Tab PO SCH (20:48)
[2024-04-07] MEDS: Saccharomyces Boulardii (Probiotic) 250 MG Cap PO SCH (20:48)
[2024-04-07] MEDS: Gabapentin 100 MG Cap PO SCH (20:48)
[2024-04-07] MEDS: Insulin Glarg,Human.Rec.Analog 100 Unit/ML 10 ML Vial SUBCUT SCH (20:49)
[2024-04-07] MEDS: Mirtazapine 15 MG Tab PO SCH (20:49)
[2024-04-07] MEDS: Famotidine 20 MG Tab PO SCH (20:49)
[2024-04-07] MEDS: Acetaminophen 325 MG Tab PO PRN (20:49)
[2024-04-07] MEDS ORDERED: Gabapentin 100 MG Cap PO SCH (21:00)
[2024-04-07] MEDS: Albumin Human 50 GM in Premix Bag 1 BAG IV ONE (22:37)
[2024-04-07] MEDS: Hydrocortisone Sodium Succinate 100 MG/2 ML SDV IVPUSH ONE (22:37)
[2024-04-07 23:46] LABS: LACTIC ACID 1.5 mmol/L (0.4-2.0)
[2024-04-08] MEDS: Insulin Lispro 100 Units/ML 3 ML Vial SUBCUT SCH ×2 (02:09→12:38)
[2024-04-08] MEDS: Hydrocortisone Sodium Succinate 100 MG/2 ML SDV IVPUSH SCH (04:17)
[2024-04-08] MEDS: Albumin Human 50 GM in Premix Bag 1 BAG IV ONE (05:17)
[2024-04-08] MEDS: Loperamide 2 MG Cap PO PRN (05:17)
[2024-04-08 06:40] LABS: HEMATOCRIT 27.8 % (40.0-54.0); HEMOGLOBIN 8.6 g/dL (14.0-18.0); MEAN CORPUSCULAR HGB CONC 30.9 g/dL (33.0-35.0); MEAN CORPUSCULAR VOLUME 87.1 fL (80-100); PLATELET COUNT,PLT 414 10^3/uL (150-450); RED BLOOD CELL COUNT 3.19 10^6/uL (4.6-6.2); WHITE BLOOD CELL COUNT,WBC 18.7 10^3/uL (5.0-10.0)
[2024-04-08 06:50] LABS: BASOPHILS PERCENT AUTO 0.1 % (0.0-1.0); LYMPHOCYTES PERCENT AUTO 4.7 % (20.5-50.1); MONOCYTES PERCENT AUTO 5.7 % (2-8); NEUTROPHILS PERCENT AUTO 89.5 % (42.2-75.2)
[2024-04-08 07:00] LABS: ALBUMIN 3.2 g/dL (3.4-5.0); BILIRUBIN TOTAL 0.8 mg/dL (0.2-1.0); BUN/CREATININE RATIO 18.3 (No establ ref range); C-REACTIVE PROTEIN 19.85 ng/dL (<=0.50); CALCIUM 8.3 mg/dL (8.5-10.1); CREATININE 2.19 mg/dL (0.70-1.30); EST CRCL DRUG DOSING (CG) 45.28 mL/min; MAGNESIUM 1.8 mg/dL (1.8-2.4); PROTEIN TOTAL,TP 6.5 g/dL (6.4-8.2)
[2024-04-08 07:02] LABS: A/G RATIO 0.97
[2024-04-08 07:18] LABS: BAND PERCENT MAN 9 %; LYMPHOCYTES PERCENT MAN 4 % (20-50); METAMYELOCYTE PERCENT MAN 2; MONOCYTES PERCENT MAN 3 % (2-8); NRBC MANUAL 1 /100WBC; SEG NEUTROPHILS PERCENT MAN 82 % (42-75)
[2024-04-08] MEDS: FLUoxetine 10 MG Cap PO SCH (09:23)
[2024-04-08] MEDS: Midodrine 5 MG Tab PO SCH (09:24)
[2024-04-08] MEDS: Aspirin 81 MG Tab.EC PO SCH (09:25)
[2024-04-08] MEDS: Ferrous Sulfate 325 MG Tab PO SCH (09:25)
[2024-04-08] MEDS: Tolterodine 2 MG Cap.ER PO SCH (09:25)
[2024-04-08] MEDS: Vitamin B Complex Cap PO SCH (09:26)
[2024-04-08] MEDS: Enoxaparin 40 MG/0.4 ML Syringe SUBCUT SCH (09:26)
[2024-04-08] MEDS: Cefepime 2 GM in Sodium Chloride 0.9% 100 ML IV SCH (10:20)
[2024-04-08] MEDS: Gentamicin 110 MG in Sodium Chloride 0.9% 100 ML IV SCH (14:55)
[2024-04-08 19:51] VITALS: PULSE 115
[2024-04-08 19:54] VITALS: BP 138/89
[2024-04-09] MEDS ORDERED: Famotidine 20 MG Tab PO SCH (09:00)
== END 2024-04-08 20:35 | disposition left against medical advice (07) | DRG 698 ==
LOC: DL.ED 11:47 → DL.MS 14:52
PROVIDERS: ADMIT Internal Medicine; ATTEND Internal Medicine
DX: T83.510A Infection and inflammatory reaction due to cystostomy catheter, initial encounter (principal); A41.52 Sepsis due to Pseudomonas; E43 Unspecified severe protein-calorie malnutrition; G93.41 Metabolic encephalopathy; E11.9 Type 2 diabetes mellitus without complications; R65.21 Severe sepsis with septic shock; E87.1 Hypo-osmolality and hyponatremia; N17.9 Acute kidney failure, unspecified; E87.20 Acidosis, unspecified; N39.0 Urinary tract infection, site not specified; I10 Essential (primary) hypertension; E78.5 Hyperlipidemia, unspecified; J44.9 Chronic obstructive pulmonary disease, unspecified; K21.9 Gastro-esophageal reflux disease without esophagitis; N40.1 Benign prostatic hyperplasia with lower urinary tract symptoms; E11.42 Type 2 diabetes mellitus with diabetic polyneuropathy; F32.A Depression, unspecified; D64.9 Anemia, unspecified; D75.839 Thrombocytosis, unspecified; E11.65 Type 2 diabetes mellitus with hyperglycemia; E88.09 Other disorders of plasma-protein metabolism, not elsewhere classified; F41.9 Anxiety disorder, unspecified; F15.10 Other stimulant abuse, uncomplicated; R33.8 Other retention of urine; L89.629 Pressure ulcer of left heel, unspecified stage; L89.619 Pressure ulcer of right heel, unspecified stage; Z88.2 Allergy status to sulfonamides; Z88.8 Allergy status to other drugs, medicaments and biological substances; Z79.4 Long term (current) use of insulin; Z79.82 Long term (current) use of aspirin; Z86.16 Personal history of COVID-19; Z91.148 Patient's other noncompliance with medication regimen for other reason; Z79.899 Other long term (current) drug therapy
CPT/HCPCS: 36415; 80053; 80170; 80305-QW; 80307; 81001; 82533; 82947; 83605; 83735; 84145; 85025; 86140; 87040; 87086; 87088; 87186; 96361; 96365; 99238; 99284-25; 99285; A9270-GY; J0692; J1580; J1650; J1720; J1815-GY; J2543; J3370; J3490; J7030; J7040; J7120; P9047

== ENCOUNTER 2024-04-09 18:57 | Emergency (ER) | payer MEDICAID ==
[2024-04-09] MEDS: Sodium Chloride 0.9% 1,000 ML IV ONE ×3 (18:53→20:21)
[2024-04-09] MEDS: Vancomycin 1.75 GM in Sodium Chloride 0.9% 500 ML IV ONE (19:34)
[2024-04-09 19:35] LABS: HEMATOCRIT 30.3 % (40.0-54.0); HEMOGLOBIN 9.5 g/dL (14.0-18.0); MEAN CORPUSCULAR HEMOGLOBIN 27.3 pg (27.0-34.0); MEAN CORPUSCULAR HGB CONC 31.4 g/dL (33.0-35.0); MEAN CORPUSCULAR VOLUME 87.1 fL (80-100); PLATELET COUNT,PLT 353 10^3/uL (150-450); RED BLOOD CELL COUNT 3.48 10^6/uL (4.6-6.2); WHITE BLOOD CELL COUNT,WBC 16.1 10^3/uL (5.0-10.0)
[2024-04-09] MEDS: Sodium Chloride 0.9% 10 ML Syringe FLUSH PRN (19:36)
[2024-04-09 19:37] LABS: BASOPHILS PERCENT AUTO 0.1 % (0.0-1.0); EOSINOPHILS PERCENT AUTO 0.4 % (1.0-3.0); LYMPHOCYTES PERCENT AUTO 9.8 % (20.5-50.1); MONOCYTES PERCENT AUTO 12.9 % (2-8); NEUTROPHILS PERCENT AUTO 76.8 % (42.2-75.2)
[2024-04-09] MEDS: Piperacillin/Tazobactam 4.5 GM in Sodium Chloride 0.9% 100 ML IV ONE (19:41)
[2024-04-09 19:56] LABS: ALANINE AMINOTRANSFERASE,ALT 43 U/L (16-63); ALBUMIN 2.2 g/dL (3.4-5.0); ALKALINE PHOSPHATASE 149 U/L (46-116); ANION GAP 16.6 mEq/L (7-13); ASPARTATE AMNIOTRANSFERASE,AST 12 U/L (15-37); BILIRUBIN TOTAL 0.4 mg/dL (0.2-1.0); BLOOD UREA NITROGEN,BUN 50 mg/dL (7-18); BUN/CREATININE RATIO 16.4 (No establ ref range); C-REACTIVE PROTEIN 15.61 ng/dL (<=0.50); CALCIUM 8.2 mg/dL (8.5-10.1); CARBON DIOXIDE,CO2 19 mmol/L (21-32); CHLORIDE,CL 103 mmol/L (98-107); CREATININE 3.04 mg/dL (0.70-1.30); EST CRCL DRUG DOSING (CG) 32.62 mL/min; GLUCOSE RANDOM 242 mg/dL (70-99); POTASSIUM,K 3.6 mmol/L (3.5-5.1); PROTEIN TOTAL,TP 5.7 g/dL (6.4-8.2); SODIUM,NA 135 mmol/L (136-145)
[2024-04-09 19:57] LABS: A/G RATIO 0.63; BAND PERCENT MAN 3 %; ESTIMATED GFR 24 mL/min (>=60); ETHANOL BLOOD MEDICAL < 3 mg/dL (0); LYMPHOCYTES PERCENT MAN 7 % (20-50); MONOCYTES PERCENT MAN 12 % (2-8); SEG NEUTROPHILS PERCENT MAN 78 % (42-75)
[2024-04-09 19:59] LABS: LACTIC ACID 1.1 mmol/L (0.4-2.0)
[2024-04-09 20:22] LABS: APPEARANCE,URINE TURBID (CLEAR); BILIRUBIN,URINE NEGATIVE (NEGATIVE); COLOR,URINE YELLOW (YELLOW); GLUCOSE,URINE NEGATIVE (NEGATIVE); KETONES,URINE 15 (NEGATIVE); LEUKOCYTE ESTERASE,URINE LARGE (NEGATIVE); NITRITE,URINE NEGATIVE (NEGATIVE); OCCULT BLOOD,URINE MODERATE (NEGATIVE); PROTEIN,URINE >=300 (NEGATIVE); UROBILINOGEN,URINE 0.2 mg/dL (0.2-1.0)
[2024-04-09 20:24] LABS: AMPHETAMINES,URINE POSITIVE (NEGATIVE); BARBITURATES,URINE NEGATIVE (NEGATIVE); BENZODIAZEPINE,URINE NEGATIVE (NEGATIVE); MDMA (ECSTASY), URINE NEGATIVE (NEGATIVE); METHADONE,URINE NEGATIVE (NEGATIVE); METHAMPHETAMINES,URINE POSITIVE (NEGATIVE); OPIATES,URINE NEGATIVE (NEGATIVE); OXYCODONE,URINE NEGATIVE (NEGATIVE); PHENCYCLIDINE,URINE NEGATIVE (NEGATIVE); TCA,URINE POSITIVE (NEGATIVE)
[2024-04-09 20:35] LABS: BACTERIA,URINE MODERATE /HPF (0-FEW/HPF); EPITHELIAL CELLS,URINE FEW /HPF (NOT SEEN); RBC,URINE 40-50 /HPF (0-5); WBC,URINE >100 /HPF (0-5/HPF)
[2024-04-09 20:36] LABS: AMORPHOUS SEDIMENT,URINE MODERATE /HPF (NOT SEEN); YEAST,URINE MODERATE /HPF (NOT SEEN)
[2024-04-09] MEDS: Norepinephrine Bit/D5W Premix 250 ML IV SCH (21:05)
[2024-04-09 23:50] VITALS: BP 141/89; PULSE 104
== END 2024-04-09 23:46 ==
LOC: DL.ED 18:57
DX: A41.9 Sepsis, unspecified organism (principal); R65.20 Severe sepsis without septic shock; N17.9 Acute kidney failure, unspecified; N39.0 Urinary tract infection, site not specified; I10 Essential (primary) hypertension; J44.9 Chronic obstructive pulmonary disease, unspecified; K21.9 Gastro-esophageal reflux disease without esophagitis; E11.9 Type 2 diabetes mellitus without complications; Z88.8 Allergy status to other drugs, medicaments and biological substances; Z79.51 Long term (current) use of inhaled steroids; Z79.4 Long term (current) use of insulin; Z79.899 Other long term (current) drug therapy; Z79.82 Long term (current) use of aspirin
CPT/HCPCS: 36415; 80053; 80305; 80307; 81001; 83605; 83735; 84145; 85025; 86140; 87040; 87086; 96361; 96365; 96366; 96367; 96368; 99285; J2543; J3370; J3490; J7030; J7040

== ENCOUNTER 2024-11-13 10:55 | Emergency (ER) | payer MEDICAID, OTHER ==
[2024-11-13 11:43] VITALS: BP 154/96; PULSE 107
== END 2024-11-13 12:00 | disposition home or self-care (01) ==
LOC: DL.ED 10:55
DX: T83.011A Breakdown (mechanical) of indwelling urethral catheter, initial encounter (principal); I10 Essential (primary) hypertension; J44.9 Chronic obstructive pulmonary disease, unspecified; E11.9 Type 2 diabetes mellitus without complications; Z79.899 Other long term (current) drug therapy; Z79.4 Long term (current) use of insulin; Z88.8 Allergy status to other drugs, medicaments and biological substances
CPT/HCPCS: 51702; 99283

== ENCOUNTER 2024-11-15 15:07 | Emergency (ER) | payer MEDICAID ==
[2024-11-15 15:35] VITALS: BP 137/96; PULSE 97
== END 2024-11-15 15:30 | disposition home or self-care (01) ==
LOC: DL.ED 15:07
DX: T83.011D Breakdown (mechanical) of indwelling urethral catheter, subsequent encounter (principal); I10 Essential (primary) hypertension; Z79.899 Other long term (current) drug therapy; Z79.82 Long term (current) use of aspirin; Z79.4 Long term (current) use of insulin; Z88.8 Allergy status to other drugs, medicaments and biological substances
CPT/HCPCS: 99283

== ENCOUNTER 2024-12-07 15:20 | Emergency (ER) | payer MEDICAID ==
[2024-12-07] MEDS: cefTRIAXone 2 GM Vial IVPUSH ONE (15:44)
[2024-12-07 16:12] LABS: APPEARANCE,URINE CLOUDY (CLEAR); BILIRUBIN,URINE NEGATIVE (NEGATIVE); COLOR,URINE YELLOW (YELLOW); GLUCOSE,URINE NEGATIVE (NEGATIVE); KETONES,URINE NEGATIVE (NEGATIVE); LEUKOCYTE ESTERASE,URINE LARGE (NEGATIVE); NITRITE,URINE NEGATIVE (NEGATIVE); OCCULT BLOOD,URINE SMALL (NEGATIVE); PROTEIN,URINE 100 (NEGATIVE)
[2024-12-07] MEDS: Sodium Chloride 0.9% 1,000 ML IV ONE (16:16)
[2024-12-07 16:22] LABS: EPITHELIAL CELLS,URINE RARE /HPF (NOT SEEN); RBC,URINE 20-30 /HPF (0-5); WBC,URINE PACKED /HPF (0-5/HPF)
[2024-12-07 16:23] LABS: AMORPHOUS SEDIMENT,URINE FEW /HPF (NOT SEEN); BACTERIA,URINE MANY /HPF (0-FEW/HPF); MUCUS,URINE FEW /LPF (NOT SEEN)
[2024-12-07 16:37] VITALS: BP 124/82; PULSE 99
== END 2024-12-07 16:54 | disposition home or self-care (01) ==
LOC: DL.ED 15:20
DX: N30.00 Acute cystitis without hematuria (principal); I10 Essential (primary) hypertension; J44.9 Chronic obstructive pulmonary disease, unspecified; E11.9 Type 2 diabetes mellitus without complications; Z88.8 Allergy status to other drugs, medicaments and biological substances; Z79.51 Long term (current) use of inhaled steroids; Z79.4 Long term (current) use of insulin; Z79.82 Long term (current) use of aspirin; Z79.899 Other long term (current) drug therapy
CPT/HCPCS: 81001; 87086; 96374; 99284; J0696; J7030

== ENCOUNTER 2024-12-12 12:46 | Emergency (ER) | payer MEDICAID ==
[2024-12-12 13:03] VITALS: BP 121/76; PULSE 71
== END 2024-12-12 13:00 | disposition home or self-care (01) ==
LOC: DL.ED 12:46
DX: T83.031A Leakage of indwelling urethral catheter, initial encounter (principal)
CPT/HCPCS: 99282

== ENCOUNTER 2024-12-22 | Emergency (ER) | payer MEDICAID ==
[2024-12-22 00:29] VITALS: BP 90/64; PULSE 102
[2024-12-22 01:11] LABS: BASOPHILS PERCENT AUTO 0.7 % (0.0-1.0); EOSINOPHILS PERCENT AUTO 5.4 % (1.0-3.0); HEMATOCRIT 34.8 % (40.0-54.0); HEMOGLOBIN 10.8 g/dL (14.0-18.0); LYMPHOCYTES PERCENT AUTO 36.7 % (20.5-50.1); MEAN CORPUSCULAR HEMOGLOBIN 26.5 pg (27.0-34.0); MEAN CORPUSCULAR VOLUME 85.3 fL (80-100); MONOCYTES PERCENT AUTO 5.1 % (2-8); NEUTROPHILS PERCENT AUTO 52.1 % (42.2-75.2); PLATELET COUNT,PLT 374 10^3/uL (150-450); RED BLOOD CELL COUNT 4.08 10^6/uL (4.6-6.2); WHITE BLOOD CELL COUNT,WBC 7.3 10^3/uL (5.0-10.0)
[2024-12-22 01:20] LABS: ALBUMIN 2.9 g/dL (3.4-5.0); BILIRUBIN TOTAL 0.3 mg/dL (0.2-1.0); C-REACTIVE PROTEIN 0.98 ng/dL (<=0.50); CALCIUM 8.9 mg/dL (8.5-10.1); CREATININE 2.07 mg/dL (0.70-1.30); EST CRCL DRUG DOSING (CG) 47.38 mL/min; PROTEIN TOTAL,TP 8.1 g/dL (6.4-8.2)
[2024-12-22 01:23] LABS: ANION GAP 11.7 mEq/L (7-13); POTASSIUM,K 4.7 mmol/L (3.5-5.1)
[2024-12-22 01:25] LABS: A/G RATIO 0.56
[2024-12-22] MEDS: Sulfamethoxazole/Trimethoprim 800-160 MG Tab PO ONE (02:46)
== END 2024-12-22 06:15 | disposition home or self-care (01) ==
LOC: DL.ED
DX: E11.621 Type 2 diabetes mellitus with foot ulcer (principal); I10 Essential (primary) hypertension; J44.9 Chronic obstructive pulmonary disease, unspecified; Z88.8 Allergy status to other drugs, medicaments and biological substances; Z79.899 Other long term (current) drug therapy; Z79.4 Long term (current) use of insulin; Z79.82 Long term (current) use of aspirin
CPT/HCPCS: 36415; 73630-RT; 80053; 82947; 85025; 86140; 99284; A9270-GY

== ENCOUNTER 2025-01-23 19:05 | Emergency (ER) | payer MEDICAID ==
[2025-01-23] MEDS: Naloxone 2 MG/2 ML Syringe IVPUSH PRN (19:16)
[2025-01-23] MEDS ORDERED: Sodium Chloride 0.9% 10 ML Syringe FLUSH PRN (19:20)
[2025-01-23 19:34] LABS: BASOPHILS PERCENT AUTO 0.4 % (0.0-1.0); HEMATOCRIT 37.4 % (40.0-54.0); HEMOGLOBIN 11.9 g/dL (14.0-18.0); MEAN CORPUSCULAR HEMOGLOBIN 27.2 pg (27.0-34.0); MEAN CORPUSCULAR HGB CONC 31.8 g/dL (33.0-35.0); MEAN CORPUSCULAR VOLUME 85.6 fL (80-100); MONOCYTES PERCENT AUTO 7.6 % (2-8); PLATELET COUNT,PLT 322 10^3/uL (150-450); RED BLOOD CELL COUNT 4.37 10^6/uL (4.6-6.2); WHITE BLOOD CELL COUNT,WBC 8.4 10^3/uL (5.0-10.0)
[2025-01-23 19:43] LABS: ALANINE AMINOTRANSFERASE,ALT 17 U/L (16-63); ALBUMIN 3.1 g/dL (3.4-5.0); ALKALINE PHOSPHATASE 129 U/L (46-116); ANION GAP 15.4 mEq/L (7-13); ASPARTATE AMNIOTRANSFERASE,AST 26 U/L (15-37); BILIRUBIN TOTAL 0.8 mg/dL (0.2-1.0); BLOOD UREA NITROGEN,BUN 23 mg/dL (7-18); BUN/CREATININE RATIO 12.8 (No establ ref range); CALCIUM 9.3 mg/dL (8.5-10.1); CARBON DIOXIDE,CO2 25 mmol/L (21-32); CHLORIDE,CL 99 mmol/L (98-107); EST CRCL DRUG DOSING (CG) 50.56 mL/min; GLUCOSE RANDOM 144 mg/dL (70-99); MAGNESIUM 1.9 mg/dL (1.8-2.4); POTASSIUM,K 3.4 mmol/L (3.5-5.1); PROTEIN TOTAL,TP 8.5 g/dL (6.4-8.2); SODIUM,NA 136 mmol/L (136-145)
[2025-01-23 19:45] LABS: A/G RATIO 0.57; ESTIMATED GFR 46 mL/min (>=60); ETHANOL BLOOD MEDICAL < 3 mg/dL (0)
[2025-01-23 19:46] LABS: LACTIC ACID 1.3 mmol/L (0.4-2.0)
[2025-01-23 20:33] LABS: APPEARANCE,URINE SLIGHTLY CLOUDY (CLEAR); BILIRUBIN,URINE SMALL (NEGATIVE); COLOR,URINE YELLOW (YELLOW); GLUCOSE,URINE NEGATIVE (NEGATIVE); KETONES,URINE 40 (NEGATIVE); LEUKOCYTE ESTERASE,URINE TRACE (NEGATIVE); NITRITE,URINE POSITIVE (NEGATIVE); OCCULT BLOOD,URINE LARGE (NEGATIVE); PROTEIN,URINE 100 (NEGATIVE); UROBILINOGEN,URINE 0.2 mg/dL (0.2-1.0)
[2025-01-23 20:36] LABS: AMPHETAMINES,URINE POSITIVE (NEGATIVE); BARBITURATES,URINE NEGATIVE (NEGATIVE); BENZODIAZEPINE,URINE NEGATIVE (NEGATIVE); MDMA (ECSTASY), URINE NEGATIVE (NEGATIVE); METHADONE,URINE NEGATIVE (NEGATIVE); METHAMPHETAMINES,URINE POSITIVE (NEGATIVE); OPIATES,URINE NEGATIVE (NEGATIVE); OXYCODONE,URINE NEGATIVE (NEGATIVE); PHENCYCLIDINE,URINE NEGATIVE (NEGATIVE); TCA,URINE POSITIVE (NEGATIVE)
[2025-01-23 20:50] LABS: BACTERIA,URINE FEW /HPF (0-FEW/HPF); EPITHELIAL CELLS,URINE FEW /HPF (NOT SEEN); MUCUS,URINE FEW /LPF (NOT SEEN); RBC,URINE >100 /HPF (0-5); WBC,URINE 20-30 /HPF (0-5/HPF)
[2025-01-23] MEDS: cefTRIAXone 1 GM Vial IVPUSH ONE (20:57)
[2025-01-23] MEDS: Lactated Ringers 1,000 ML IV ONE (21:02)
[2025-01-23] MEDS: Potassium Chloride 10 MEQ Tab.ER PO ONE (22:37)
[2025-01-23 22:57] VITALS: BP 112/80; PULSE 94
== END 2025-01-23 22:45 | disposition home or self-care (01) ==
LOC: DL.ED 19:05
DX: E87.6 Hypokalemia (principal); T43.651A Poisoning by methamphetamines accidental (unintentional), initial encounter; F12.90 Cannabis use, unspecified, uncomplicated; R23.4 Changes in skin texture; N31.9 Neuromuscular dysfunction of bladder, unspecified; E87.20 Acidosis, unspecified; I10 Essential (primary) hypertension; G93.40 Encephalopathy, unspecified; R94.4 Abnormal results of kidney function studies; E86.0 Dehydration; Z88.8 Allergy status to other drugs, medicaments and biological substances; Z79.899 Other long term (current) drug therapy; Z91.148 Patient's other noncompliance with medication regimen for other reason; Z79.84 Long term (current) use of oral hypoglycemic drugs; Z96.0 Presence of urogenital implants
CPT/HCPCS: 36415; 51705; 80053; 80305; 80307; 81001; 82140; 82550; 82947; 83605; 83735; 85025; 87040; 87086; 87088; 87186; 93010; 96361; 96374; 96375; 99285; A9270; J0696; J2310; J7120

== ENCOUNTER 2025-02-17 14:26 | Emergency (ER) | payer MEDICAID ==
[2025-02-17 15:35] VITALS: BP 120/97; PULSE 84
== END 2025-02-17 15:31 | disposition home or self-care (01) ==
LOC: DL.ED 14:26
DX: N30.00 Acute cystitis without hematuria (principal); I10 Essential (primary) hypertension; J44.9 Chronic obstructive pulmonary disease, unspecified; E11.9 Type 2 diabetes mellitus without complications; K21.9 Gastro-esophageal reflux disease without esophagitis; Z88.8 Allergy status to other drugs, medicaments and biological substances; Z79.51 Long term (current) use of inhaled steroids; Z79.899 Other long term (current) drug therapy; Z79.4 Long term (current) use of insulin; Z79.82 Long term (current) use of aspirin
CPT/HCPCS: 51705; 99284-25

== ENCOUNTER 2025-02-26 17:15 | Emergency (ER) | payer MEDICAID ==
[2025-02-26 17:48] LABS: HEMATOCRIT 33.2 % (40.0-54.0); HEMOGLOBIN 10.6 g/dL (14.0-18.0); MEAN CORPUSCULAR HEMOGLOBIN 26.6 pg (27.0-34.0); MEAN CORPUSCULAR HGB CONC 31.9 g/dL (33.0-35.0); MEAN CORPUSCULAR VOLUME 83.4 fL (80-100); PLATELET COUNT,PLT 512 10^3/uL (150-450); RED BLOOD CELL COUNT 3.98 10^6/uL (4.6-6.2); WHITE BLOOD CELL COUNT,WBC 30.7 10^3/uL (5.0-10.0)
[2025-02-26 17:52] LABS: BASOPHILS PERCENT AUTO 0.1 % (0.0-1.0); EOSINOPHILS PERCENT AUTO 0.1 % (1.0-3.0); LYMPHOCYTES PERCENT AUTO 5.3 % (20.5-50.1); MONOCYTES PERCENT AUTO 4.9 % (2-8); NEUTROPHILS PERCENT AUTO 89.6 % (42.2-75.2)
[2025-02-26 18:03] LABS: LYMPHOCYTES PERCENT MAN 5 % (20-50); MONOCYTES PERCENT MAN 2 % (2-8); SEG NEUTROPHILS PERCENT MAN 93 % (42-75)
[2025-02-26 18:09] LABS: A/G RATIO 0.28; ALBUMIN 1.9 g/dL (3.4-5.0); BILIRUBIN DIRECT 0.8 mg/dL (0.0-0.2); BILIRUBIN INDIRECT 0.5; BILIRUBIN TOTAL 1.3 mg/dL (0.2-1.0); CALCIUM 8.9 mg/dL (8.5-10.1); CREATININE 1.95 mg/dL (0.70-1.30); EST CRCL DRUG DOSING (CG) 41.98 mL/min; PROTEIN TOTAL,TP 8.8 g/dL (6.4-8.2)
[2025-02-26 19:21] LABS: LACTIC ACID 1.7 mmol/L (0.4-2.0)
[2025-02-26] MEDS: Sodium Chloride 0.9% 1,500 ML IV SCH (19:37)
[2025-02-26] MEDS: Piperacillin/Tazobactam 4.5 GM in Sodium Chloride 0.9% 100 ML IV ONE (19:43)
[2025-02-26] MEDS: VANCOmycin 1.25 GM in Sodium Chloride 0.9% 250 ML IV ONE (19:44)
[2025-02-26 22:35] VITALS: BP 91/56; PULSE 109
== END 2025-02-26 22:23 ==
LOC: DL.ED 17:15
DX: A41.9 Sepsis, unspecified organism (principal); L03.113 Cellulitis of right upper limb; I10 Essential (primary) hypertension; J44.9 Chronic obstructive pulmonary disease, unspecified; E11.9 Type 2 diabetes mellitus without complications; Z88.8 Allergy status to other drugs, medicaments and biological substances; Z79.51 Long term (current) use of inhaled steroids; Z79.899 Other long term (current) drug therapy; Z79.82 Long term (current) use of aspirin; Z79.4 Long term (current) use of insulin; Z91.148 Patient's other noncompliance with medication regimen for other reason
CPT/HCPCS: 36415; 73130; 73200; 73630; 73700; 80048; 80076; 83605; 85025; 87040; 96365; 96367; 99285; J2543; J3371; J7030; J7050

== ENCOUNTER 2025-05-26 15:10 | Emergency (ER) | payer MEDICAID ==
[2025-05-26 15:57] LABS: PLATELET COUNT,PLT 601 10^3/uL (150-450); RED BLOOD CELL COUNT 3.44 10^6/uL (4.6-6.2); WHITE BLOOD CELL COUNT,WBC 13.7 10^3/uL (5.0-10.0)
[2025-05-26 16:08] LABS: LYMPHOCYTES PERCENT AUTO 10.7 % (20.5-50.1); NEUTROPHILS PERCENT AUTO 82.5 % (42.2-75.2)
[2025-05-26 16:09] LABS: BASOPHILS PERCENT AUTO 0.2 % (0.0-1.0); EOSINOPHILS PERCENT AUTO 1.8 % (1.0-3.0); MONOCYTES PERCENT AUTO 4.8 % (2-8)
[2025-05-26 16:22] LABS: BLOOD UREA NITROGEN,BUN 31.0 mg/dL (7-18); CARBON DIOXIDE,CO2 30.0 mmol/L (21-32); CHLORIDE,CL 100.0 mmol/L (98-107); CREATININE 1.89 mg/dL (0.70-1.30); EST CRCL DRUG DOSING (CG) 51.89 mL/min; GLUCOSE RANDOM 159.0 mg/dL (70-99); POTASSIUM,K 4.6 mmol/L (3.5-5.1)
[2025-05-26 16:29] LABS: SODIUM,NA 136.0 mmol/L (136-145)
[2025-05-26 16:32] LABS: ESTIMATED GFR 43.0 mL/min (>=60)
[2025-05-26 16:49] LABS: LYMPHOCYTES PERCENT MAN 10 % (20-50); SEG NEUTROPHILS PERCENT MAN 83 % (42-75)
[2025-05-26 16:50] LABS: EOSINOPHILS PERCENT MAN 2 % (1-3); MONOCYTES PERCENT MAN 5 % (2-8); SEDIMENTATION RATE MANUAL 70 mm/hr (0-15)
[2025-05-26] MEDS: Acetaminophen/HYDROcodone 325-10 MG Tab PO ONE (18:48)
[2025-05-26 21:45] VITALS: BP 104/76; PULSE 60
== END 2025-05-26 22:38 ==
LOC: DL.ED 15:10
DX: S61.401A Unspecified open wound of right hand, initial encounter (principal); J18.9 Pneumonia, unspecified organism; R09.02 Hypoxemia; I10 Essential (primary) hypertension; J44.9 Chronic obstructive pulmonary disease, unspecified; K21.9 Gastro-esophageal reflux disease without esophagitis; E11.9 Type 2 diabetes mellitus without complications; Z88.8 Allergy status to other drugs, medicaments and biological substances; Z79.899 Other long term (current) drug therapy; Z79.82 Long term (current) use of aspirin; Z79.4 Long term (current) use of insulin; X58.XXXA Exposure to other specified factors, initial encounter
CPT/HCPCS: 36415; 71045; 71250; 73120; 80048; 85025; 85651; 87040; 96365; 96366; 96375; 99285; A9270; J0694; J3373; J3535; J7050; J7620